=== PATIENT | female | born 1940 | race Caucasian/White ===

== ENCOUNTER 2020-07-16 03:09 | Inpatient (IN) | payer MEDICARE, OTHER, SELFPAY ==
[2020-07-16] VITALS (59 sets, daily range): BP systolic 101–205; BP diastolic 03–158; PULSE 84–137; RESP 1–32; TEMP 36.6–36.7; O2SAT 89–97
--- NOTE | 2020-07-16 03:30 | USCV_ITS ---
Arnulfo Aaliyah Age: 80 Gender: F : 1940 Exam Date: 07/16/2020 06:52 Ordering Phys: Alessia Negrete MD Technologist: Mindi Stokes Exam Location: [facility] Indication: NSTEMI BP: 144 / 94 HR: 99 Rhythm: Sinus Technical Quality: Adequate MEASUREMENTS (Male / Female) Normal Values 2D ECHO LV Diastolic Diameter PLAX 4.2 cm 4.2 - 5.9 / 3.9 - 5.3 cm LV Systolic Diameter PLAX 2.6 cm LV Chamber Size 3.8 cm IVS Diastolic Thickness 1.1 cm 0.6 - 1.0 / 0.6 - 0.9 cm IVS Systolic Thickness 1.6 cm LVPW Diastolic Thickness 1.4 cm 0.6 - 1.0 / 0.6 - 0.9 cm LVPW Systolic Thickness 1.4 cm RV Chamber Size 2.8 cm LVOT Diameter 2.1 cm LV Ejection Fraction 2D Teich 68.5 % LV Ejection Fraction MOD 2C 41.8 % LV Ejection Fraction 2C AL 41.6 % LA Diameter 2.8 cm LA Width 2.7 cm LA Height 3.9 cm RA Width 2.9 cm RA Height 3.7 cm Aorta at Sinotubular Diameter 3.1 cm M-MODE LV Diastolic Diameter MM 3.9 cm 4.2 - 5.9 / 3.9 - 5.3 cm LV Systolic Diameter MM 2.4 cm LV Ejection Fraction MM Teich 67.8 % IVS Diastolic Thickness MM 1.0 cm 0.6 - 1.0 / 0.6 - 0.9 cm IVS Systolic Thickness MM 1.7 cm LVPW Diastolic Thickness MM 1.1 cm 0.6 - 1.0 / 0.6 - 0.9 cm LVPW Systolic Thickness MM 1.5 cm RV Diastolic Diameter MM 1.4 cm Aortic Annulus Diameter 3.5 cm LA Ao Ratio MM 0.8 MV E Point Septal Separation 1.2 cm DOPPLER AV Peak Velocity 127.0 cm/s LVOT Peak Velocity 117.0 cm/s AV Area Cont Eq vti 3.1 cm squared AV Area Cont Eq pk 3.1 cm squared MV Area PHT 5.8 cm squared Mitral E to A Ratio 3.2 MV E' Velocity 71.0 cm/s Mitral E to MV E' Ratio 17.8 Mitral E to LV E' Lateral Ratio 14.7 Mitral E to LV E' Septal Ratio 23.0 TR Peak Velocity 135.0 cm/s TR Peak Gradient 7.3 mmHg TR Mean Velocity 68.2 cm/s TR Mean Gradient 2.5 mmHg TR Velocity Time Integral 26.0 cm TV Peak E Velocity 86.0 cm/s Right Atrial Pressure 3.0 mmHg Pulmonary Artery Systolic Pressu 10.3 mmHg PV Peak Velocity 125.0 cm/s RV Acceleration Time 0.2 s RV Ejection Time 0.3 s RV AcT/ET 0.6 FINDINGS Left Ventricle Severe hypokinesia of the mid and apical septum, anteroseptum and the LV apex. LV ejection fraction around 45%. Right Ventricle Also be of normal size ejection fraction Right Atrium Possibly of normal size Left Atrium Of normal size. Mitral Valve Mild mitral annular calcification. Aortic Valve Thickened aortic valve. Tricuspid Valve No gross abnormalities noted Pulmonic Valve Mild pulmonary valve regurgitation. Pericardium No pericardial effusion. Aorta Normal aortic annulus size. CONCLUSIONS Severe hypokinesia of the mid and apical septum, anteroseptum and the LV apex. LV ejection fraction around 45%. Mild mitral annular calcification. Mild pulmonary valve regurgitation. There is no pericardial effusion. There are no intracardiac masses. No previous study is available for comparison. Dr Jeanie Wall MD [facility] (Electronically Signed) Final Date: 16 July 2020 08:22 S
--- NOTE | 2020-07-16 03:33 | PC.NURSE ---
Patient received from [place], [place] via stretcher. Patient transferred from stretcher to bed x3 assist. Patient needing bedpan . Patient had spell of incontinence while in route. Patient cleaned. BP is high on monitor. Dr Negrete in the room. Obtained manual blood pressure of 192/120. Waiting for Dr to place orders at this time. Patient denies any discomfort presently. 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 Patient report CVA was about 30 years ago.
--- NOTE | 2020-07-16 03:36 | P.HP_ITS ---
Providers/Chief Complaint Admitting Physician: Alessia Negrete MD Chief Complaint: no stemi History of Present Illness Aaliyah Arredondo is a 80 year old female who has history of left-sided hemiparesis, expressive aphasia, presented to [facility] for chief complaint of chest pain. Patient is stating that her symptoms started about 3 days ago which got worse last night when she was trying to go to bed. She was very restless last night and was experiencing severe chest pain which was excruciating, radiating towards her left arm, she is endorsing that symptoms got worse 2 hours before her arrival to the ER however she has been feeling discomfort for last 6 to 7 hours. She did not experience any nausea or vomiting or shortness of breath but this chest pain is radiating towards her left arm. Previously no history of CA, coronary artery disease. Diagnosis at the outside facility reviewed, EKG showing T wave inversion, biphasic T waves in lateral leads, first troponin 88, second [id number], Covid antigen negative, creatinine 1.3, hypokalemia Chest x-ray revealed mild congestion, heparin was started, loading dose of aspirin was given at the time my evaluation patient has Nitropaste, hypertensive urgency, no active chest pain. Review of Systems Const: Denies: fever(s), chills or body aches Eyes: Denies: change in vision ENMT: Denies: throat pain Card: Reports: chest pain, swelling of feet/ankles and dyspnea on exertion Resp: Reports: dyspnea GI: Denies: abdominal pain : Denies: flank pain Musc: Denies: neck pain Skin/Breast: Denies: rash Neuro: Denies: Slurred speech present Psych: Denies: anxiety Endo: Denies: polyuria Sd/Lymph: Denies: easy bruising All/Imm: Denies: urticaria PFSH Acute PFSH: Medical History Arthritis Chronic kidney disease CVA (cerebral vascular accident) Hypertension Left-sided weakness Peripheral vascular disease UTI (urinary tract infection) Surgical History H/O vaginal hysterectomy S/P cholecystectomy Family History Other Family history non-contributory Social History Smoking and tobacco status: never smoked Alcohol intake: never Substance/Drug Use: never Housing: House Physical Exam Narrative: EXAM NARRATIVE: Very pleasant elderly female Currently chest pain-free Saturating well on 2 L nasal cannula Does not appear to be in any distress Dry buccal mucous membrane S1, S2 no murmur appreciated, lower extremity 1+ pitting edema bilaterally No abdominal pain, abdomen is soft nontender No acute respiratory distress bilateral breath sounds without adventitious ronchi or crackles Right-sided facial droop, right-sided hemiparesis, spastic paresis of hand, old changes Expressive aphasia Mild cognitive impairment Appropriate pleasant mood and affect according to her previous CVA and age Skin without signs of ulcer or gangrene A&P Assessment and plan (1) NSTEMI (non-ST elevated myocardial infarction): Status: Acute Additional A&P Information NSTEMI No active chest pain, she is hypertensive diastolic 110, has Nitropaste which I would remove and start nitro drip, continue heparin drip, loaded with Plavix, start ACS protocol Echo in the morning most likely she will need an angiogram considering significant delta troponin, Dr. Wall has been notified and consulted EKG showing lateral T wave biphasic pattern, would request D-dimer Hypokalemia: Repleted Hypertensive urgency: We will start nitro drip Chronic kidney disease Do not have previous creatinine level to complete her kidney function, current creatinine 1.37 We will start low-dose lisinopril for ACS Monitor urine output Repeat BMP Previous CVA history with left-sided hemiparesis no acute exacerbation she has expressive aphasia right-sided facial droop right-sided spastic hemiparesis N.p.o. Full code DVT prophylaxis not indicated Attestations Medical Necessity Statement*: Anticipating stay in the hospital cross more than 2 midnights for NSTEMI ACS protocol Time Spent in Patient Care: (>than 50% of time spent in counselling and/or direct pt care on unit) . 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
--- NOTE | 2020-07-16 03:55 | ECG_ITS ---
[facility] Test Date: 2020-07-16 Pat Name: Aaliyah Arredondo Department: Room: 111 Gender: Female Adjudication Specialist: : 1940 Requested By: Alessia Negrete Order Number: [id number] Oliva MD: Jeanie Wall M.D. Measurements Intervals [place] Rate: 92 P: 53 [place]: 152 QRS: -40 QRSD: 77 T: 99 QT: 335 QTc: 416 Interpretive Statements SINUS RHYTHM POSSIBLE LEFT ATRIAL ENLARGEMENT [-0.1mV P WAVE IN V1/V2] INFERIOR MYOCARDIAL INFARCTION [40+ ms Q WAVE AND/OR ST/T ABNORMALITY IN II/aVF], PROBABLY OLD ANTEROLATERAL MYOCARDIAL INFARCTION [40+ ms Q WAVE IN I/aVL/V3-V6], PROBABLY RECENT ACUTE WV INTERPRETATION BASED ON A DEFAULT AGE OF 40 YEARS No previous ECG available for comparison Electronically Signed On 07-16-2020 22:26:49 PRECIPITATOR OPERATOR by Jeanie Wall M.D. [id number]
[2020-07-16] MEDS: nitroglycerin drip 50 MG/250 ML PREMIX 9 MG IV (04:03)
[2020-07-16] MEDS: clopidogrel 300 mg Tablet PO (04:03)
[2020-07-16] MEDS: potassium chloride ER 20 mEq Tablet 40 MEQ PO (04:29)
[2020-07-16] MEDS: heparin drip 25,000 UNIT/500 ML PREMIX 22 UNIT IV (04:32)
[2020-07-16] MEDS: hyDRALAzine 20 mg/mL INJ 1 mL 10 MG IVP (05:44)
--- NOTE | 2020-07-16 05:55 | ECG_ITS ---
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 Measurements Intervals [place] Rate: 101 P: 53 [place]: 139 QRS: -34 QRSD: 77 T: 96 QT: 333 QTc: 433 Interpretive Statements SINUS TACHYCARDIA POSSIBLE LEFT ATRIAL ENLARGEMENT [-0.1mV P WAVE IN V1/V2] INFERIOR MYOCARDIAL INFARCTION [40+ ms Q WAVE AND/OR ST/T ABNORMALITY IN II/aVF], OF INDETERMINATE AGE ANTEROLATERAL MYOCARDIAL INFARCTION [40+ ms Q WAVE IN I/aVL/V3-V6], PROBABLY RECENT ACUTE [place] INTERPRETATION BASED ON A DEFAULT AGE OF 40 YEARS Compared to ECG 07/16/2020 04:46:40 Sinus rhythm no longer present Myocardial infarct finding still present Electronically Signed On 07-16-2020 22:52:56 SCALE SHOOTER by Jeanie Wall M.D. [id number]
--- NOTE | 2020-07-16 06:15 | PC.NURSE ---
Patient requesting to be left on bedpan. Has elevated blood pressure. Informed Dr Negrete and received verbal order to place cox catheter and he placed order for one time dose of Hydralazine 10mg IVP which was given. IV to left wrist was leaking. Patient not receiving adequate dose of Nitroglycerin. Removed and replaced if to left out forearm. Current BP is now 127/91. Decreased Nitro drip to 10mcg/min. Informed Dr Negrete of changes.
[2020-07-16 06:36] LABS: D Dimer 3.99 ug/mIFEU (0-0.59)
[2020-07-16 06:44] LABS: Glucose Point of Care 278 mg/dL (70-110)
[2020-07-16 06:46] LABS: Troponin(5th) Baseline 2748 ng/L (0-10)
[2020-07-16 06:52] LABS: NT Pro B Type Natriuretic Pept 5090 pg/mL (0-450)
[2020-07-16 06:55] LABS: Basophils % 0.3 %; Hemoglobin 16.5 g/dL (11.5-15.3); Lymphocytes # 0.5 10^3/uL (0.8-4.8); Lymphocytes % 7.7 %; Mean Corpuscular HGB Conc 32.4 g/dL (30.0-36.0); Mean Corpuscular Hemoglobin 31.1 pg (28.0-34.0); Mean Corpuscular Volume 96.2 fL (81-99); Mean Platelet Volume 11.7 fL (7.4-10.4); Monocytes # 0.5 10^3/uL (0.2-0.9); Monocytes % 7.4 %; Neutrophils # 5.89 10^3/uL (1.8-7.7); Neutrophils % 83.7 %; Nucleated Red Blood Cells % 0 %; Platelet Count 144 10^3/cmm (130-400); Red Cell Distribution Width 13.9 % (12.1-15.1)
--- NOTE | 2020-07-16 07:13 | ECG_ITS ---
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 Measurements Intervals [place] Rate: 99 P: 54 [place]: 145 QRS: -38 QRSD: 73 T: 105 QT: 335 QTc: 430 Interpretive Statements SINUS RHYTHM INFERIOR MYOCARDIAL INFARCTION [40+ ms Q WAVE AND/OR ST/T ABNORMALITY IN II/aVF], OF INDETERMINATE AGE ANTEROLATERAL MYOCARDIAL INFARCTION [40+ ms Q WAVE IN I/aVL/V3-V6], PROBABLY RECENT ACUTE CT Compared to ECG 07/16/2020 06:35:22 Sinus tachycardia no longer present Myocardial infarct finding still present Electronically Signed On 07-16-2020 22:41:11 SUPERVISOR ROLLER PRINTING by Jeanie Wall M.D. [id number]
[2020-07-16 07:16] LABS: Anion Gap 20.2 (5-19); Blood Urea Nitrogen 24 mg/dL (8-23); Calcium 9.5 mg/dL (8.5-10.5); Carbon Dioxide 17 mmol/L (22-29); Chloride 96 mmol/L (98-107); Glucose 239 mg/dL (65-115); Osmolality Calculated 280 mOsm/kg (285-295); Potassium 4.2 mmol/L (3.5-5.1); Sodium 129 mmol/L (136-145)
--- NOTE | 2020-07-16 07:54 | P.CONIM_ITS ---
Providers/Reason For Consult Consulting Physican/Specialty*: JAVIER Wall MD/cardiology Reason for Consult*: Patient with chest pain and elevated troponin T Attending Physician: Angelo Gaona MD History of Present Illness History of Present Illness Aaliyah Arredondo is a 80 year old female, is transferred from [facility] in [place] where she presented with complaints of worsening of chest pain over the last 3 days. She had a troponin T of 700. Ms. Arredondo is a poor historian. She had a CVA almost 30 years ago with residual right-sided hemiplegia. She has a history of hypertension, dyslipidemia and possible diabetes. She apparently has been in her baseline state of health up until 3 days ago when she started having pain in the right side of the chest, radiating across the chest, to both shoulders, to the back and also to the left arm. According to the patient, it was intermittent and mild to moderate in intensity. Last evening, the pain got worse. It was almost 10 out of 10. For these complaints, she was taken to the [facility] emergency room. Where she was found to have an abnormal EKG and troponin T. She is transferred to our hospital for further evaluation management. Patient was almost pain-free at the time of admission to our unit. This morning the pain again started coming back. Currently the pain is 5/10 intensity. Her EKG showed complete infarct in the inferior and anterolateral leads with some minimal ST elevation in 1 and aVL. She has T inversions in the anterolateral leads. She had some amount of shortness of breath. Denies any fever, chills or cough. No abdominal pain or dysuria. She has no previous history for any coronary artery disease or myocardial infarction. The exact reason for the CVA is not known. Review of Systems Narrative: CONSTITUTIONAL: No fever or chills. EYES: No blurring of vision or other visual disturbances lately. ENT: No hoarseness of voice, auditory disturbances or sore throat. CARDIOVASCULAR: As mentioned above. RESPIRATORY: Has some amount of shortness of breath. GASTROINTESTINAL: No hematemesis or melena. GENITOURINARY: No dysuria or hematuria. INTEGUMENTARY: No skin rashes or history of skin cancer. NEURO: CVA with residual right-sided weakness. She has almost cleared pseudopod in the right upper extremity and grade 1 in the right lower extremity. PSYCHIATRIC: No history of psychosis or major depression. HEMATOLOGIC: No bleeding disorders or significant anemia. ENDOCRINE: Questionable history of diabetes MUSCULOSKELETAL: Occasionally she moves around with a cane ALLERGY/IMMUNOLOGY: As mentioned above. Meds/Allergies Home Medications and Allergies Home Medications Medication Instructions Recorded Confirmed Last Taken Type acetaminophen 500 mg PO Q6H PRN 07/16/20 07/16/20 Unknown History ascorbic acid (vitamin C) 500 mg PO DAILY 07/16/20 07/16/20 07/15/20 08:00 History carvedilol 3.125 mg PO BIDWM 07/16/20 07/16/20 07/15/20 17:00 History cholecalciferol (vitamin D3) See Rx Instructions .ROUTE .COMPLEX 07/16/20 07/16/20 07/12/20 08:00 History cyanocobalamin (vitamin B-12) 100 mcg PO DAILY 07/16/20 07/16/20 07/15/20 08:00 History fluticasone propionate 2 spray INTRANASAL DAILY 07/16/20 07/16/20 07/15/20 08:00 History garlic 1 mg PO DAILY 07/16/20 07/16/20 07/15/20 08:00 History lisinopril 20 mg PO BID 07/16/20 07/16/20 07/15/20 20:00 History Allergies Allergy/AdvReac Type Severity Reaction Status Date / Time Penicillins Allergy ALGY-Anaphy Verified 07/16/20 04:42 laxis Current Medications Current Medications Generic Name Dose Route Start Last Admin Trade Name Freq PRN Reason Stop Dose Admin Heparin Sodium/Sodium Chloride 25,000 unit in 500 mls @ 0 mls/hr 07/16/20 03:30 07/16/20 04:32 Heparin Drip IV 14.07 unit/kg/hr .Q0M KEVIN 22 mls/hr Administration Protocol Per Protocol Nitroglycerin/Dextrose 50 mg in 250 mls @ 0 mls/hr 07/16/20 03:45 07/16/20 07:37 Nitroglycerin Drip IV 30 mcg/min .Q0M KEVIN 9 mls/hr Titration Protocol Per Protocol PFSH Acute PFSH: Medical History (Updated 07/16/20 @ 08:37 by Jeanie Wall MD) Accelerated hypertension Arthritis Chronic kidney disease CVA (cerebral vascular accident) Hypertension Left-sided weakness Peripheral vascular disease UTI (urinary tract infection) Surgical History H/O vaginal hysterectomy S/P cholecystectomy Family History Other Family history non-contributory Social History Smoking and tobacco status: never smoked Alcohol intake: never Substance/Drug Use: never Housing: House Vitals/I&O/Wt Last Vital Signs Temp 97.8 F 07/16/20 07:37 Pulse 98 07/16/20 07:37 Resp 19 H 07/16/20 07:37 BP 139/03 07/16/20 07:37 Pulse Ox 95 07/16/20 07:37 07/15/20 07/16/20 07/16/20 22:59 06:59 14:59 Intake Total 353.825 / 353.825 4.925 / 4.925 Balance 353.825 / 353.825 4.925 / 4.925 Weight last 48 hrs Weight 172 lb 4.8 oz Physical Exam Narrative: EXAM NARRATIVE: GENERAL: The patient is alert and oriented times three. She is hard of hearing. Does not appear to be in any distress. HEENT: Minimal pallor with no icterus or lymphadenopathy. The pupils are symmetrical. Oral cavity: There are no mucous membrane lesions. Funduscopic examination: Fundus is not visualized NECK: Trachea appears to be central. No masses noted. No JVD or thyromegaly appreciated. No carotid bruit. RESPIRATORY: Chest is symmetrical. No intercostals muscle retraction or any accessory muscle activation. There is no chest wall tenderness. Breath sounds are heard bilaterally. No rales or rhonchi heard. No evidence of any consolidation. BREASTS: Deferred. HEART: The PMI could not be palpated. First and second heart sounds are normal. No S3 but there is an S4. Short systolic murmur in the left sternal border. No diastolic murmurs. No pericardial rub. ABDOMEN: No vessel pulsations or distention. No tenderness. No organomegaly appreciated. No abdominal bruit. Bowel sounds are normally heard. : Deferred. RECTAL: Deferred. LYMPHATIC: No lymphadenopathy noted in the neck or groin. EXTREMITIES: No edema or cyanosis. No clubbing. The peripheral pulses are palpable fairly good volume and amplitude. MUSCULOSKELETAL: Patient has features of flexion contracture of the right upper extremity. SKIN: There are no significant scars or skin rash noted. NEUROPSYCHIATRIC: Has some expressive aphasia. Right hemiplegia. Urinary Catheter Management^: Arguelles: Cath Placed During This Visit: yes Urinary Catheter Date of Insertion: 07/16/20 Urinary Catheter Time of Insertion: 06:24 Data Labs: Other Labs: Laboratory Last Values WBC 7.0 10^3/uL (4.0- 10.0) 07/16/20 05:45 RBC 5.30 10^6/uL (4.1 -5.3) 07/16/20 05:45 Hgb 16.5 g/dL (11.5-1 5.3) H 07/16/20 05:45 Hct 51.0 % (37.0-47.0 ) H 07/16/20 05:45 MCV 96.2 fL (81-99) 07/16/20 05:45 MCH 31.1 pg (28.0-34. 0) 07/16/20 05:45 MCHC 32.4 g/dL (30.0-3 6.0) 07/16/20 05:45 RDW 13.9 % (12.1-15.1 ) 07/16/20 05:45 Plt Count 144 10^3/cmm (130 -400) 07/16/20 05:45 Plt Count Cancelled 07/16/20 05:45 MPV 11.7 fL (7.4-10.4 ) H 07/16/20 05:45 Neut % (Auto) 83.7 % 07/16/20 05:45 Lymph % (Auto) 7.7 % 07/16/20 05:45 [place] % (Auto) 7.4 % 07/16/20 05:45 Eos % (Auto) 0.0 % 07/16/20 05:45 Baso % (Auto) 0.3 % 07/16/20 05:45 Neut # (Auto) 5.89 10^3/uL (1.8 -7.7) 07/16/20 05:45 Lymph # (Auto) 0.5 10^3/uL (0.8- 4.8) L 07/16/20 05:45 [place] # (Auto) 0.5 10^3/uL (0.2- 0.9) 07/16/20 05:45 Eos # (Auto) 0.0 10^3/uL (0.0- 0.8) 07/16/20 05:45 Baso # (Auto) 0.0 10^3/uL (0.0- 0.1) 07/16/20 05:45 Nucleated RBC % (a uto) 0 % 07/16/20 05:45 Nucleated RBCs # 0.0 /100WBC 07/16/20 05:45 D-Dimer 3.99 ug/mIFEU (0- 0.59) H 07/16/20 05:45 Sodium 129 mmol/L (136-1 45) L 07/16/20 05:45 Potassium 4.2 mmol/L (3.5-5 .1) 07/16/20 05:45 Chloride 96 mmol/L (98-107 ) L 07/16/20 05:45 Carbon Dioxide 17 mmol/L (22-29) L 07/16/20 05:45 Anion Gap 20.2 (5-19) H 07/16/20 05:45 BUN 24 mg/dL (8-23) H 07/16/20 05:45 Creatinine 1.2 mg/dL (0.5-0. 9) H 07/16/20 05:45 GFR Calculation Not Reportable 07/16/20 05:45 Glucose 239 mg/dL (65-115 ) H 07/16/20 05:45 POC Glucose 278 mg/dL (70-110 ) 07/16/20 06:30 Calculated Osmolal ity 280 mOsm/kg (285- 295) L 07/16/20 05:45 Calcium 9.5 mg/dL (8.5-10 .5) 07/16/20 05:45 Troponin T Baselin e 2748 ng/L (0-10) H* 07/16/20 05:45 NT-Pro-B Natriuret Pep 5090 pg/mL (0-450 ) H 07/16/20 05:45 Imaging^: Echo: My impression: Echocardiogram from this morning revealed Severe hypokinesia of the mid and apical septum, anteroseptum and the LV apex. LV ejection fraction around 45%. Mild mitral annular calcification. Mild pulmonary valve regurgitation. There is no pericardial effusion. There are no intracardiac masses. No previous study is available for comparison. EKG^: EKG 1: My Interpretation: EKG reveals sinus rhythm with poor R wave progression. Fe atures of anterolateral wall myocardial infarction. QS pattern in lead V3 to V6. Minimal ST elevation in 1 and aVL with T inversion. Features of inferior wall RI of undetermined age A&P Assessment and plan (1) NSTEMI (non-ST elevated myocardial infarction): Patient's the clinical features are consistent with non-ST elevation myocardial infarction. She has EKG evidence of completed anterolateral and inferior myocardial infarction. Currently she has unstable anginal symptoms. She was started on Lovenox, beta-kole, aspirin. She is on IV nitro. The nitroglycerin dose may be titrated for chest pain. Also will be started on Lipitor and Plavix. She will be closely monitored on telemetry. Status: Acute (2) Accelerated hypertension: Her systolic blood pressure was in the 200 range at the time of admission. Currently the pressure is coming down. Status: Acute (3) Dyslipidemia: Patient will be started on Lipitor 80 mg now and daily Status: Acute (4) History of cerebrovascular accident (CVA) greater than eight weeks in the past: We may do a carotid duplex admission to further evaluate for any significant carotid artery disease. Details of her stroke is not available at this time. Status: Acute (5) Chronic kidney disease: Patient be carefully hydrated. Status: Inactive Qualifiers: Chronic kidney disease stage: stage 3 (moderate) Chronic kidney disease stage 3 subtype: stage 3a (GFR 45-59) Qualified Code(s): N18.31 - Chronic kidney disease, stage 3a (6) Ischemic cardiomyopathy: This could be related to the recent RI. We will be watching for any development of heart failure. Status: Acute Additional A&P Information Because of the patient's ongoing chest pains, she requires an urgent cardiac catheterization to further evaluate the coronary status and decide on further management. This was discussed with the patient and her [id number] in detail. Her is not available at this time for discussions. The patient is agreeable to go ahead with the procedure. Because of her kidney dysfunction, she carries a high risk for contrast-induced nephropathy. This was explained to the patient detail which is understood well. The risk of bleeding, hematoma, vascular injury, myocardial infarction, CVA, renal failure and other concomitant complications were explained in detail. The patient is wanting to go ahead with the procedure. I discussed patient's case with my colleague Dr. Amezcua, who agreed to take her to the [facility] to perform this procedure and possible PCI. Patient will be kept n.p.o. 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
--- NOTE | 2020-07-16 08:13 | PC.NURSE ---
PER DR HOOD, HOLD LASIX THIS MORNING AND GIVE ATORVASTATIN NOW.
[2020-07-16] MEDS: aspirin 81 mg EC Tablet PO (08:22)
[2020-07-16] MEDS: metoprolol succinate ER (24 HR) 25 mg Tablet 12.5 MG PO (08:22)
[2020-07-16] MEDS: atorvastatin 40 mg Tablet 80 MG PO ×2 (08:22→20:34)
[2020-07-16] MEDS: lisinopril 10 mg Tablet PO (08:23)
--- NOTE | 2020-07-16 08:37 | P.HPUD_ITS ---
Surgery/Procedure H&P Update DATE OF PROCEDURE: July 16, 2020 DATE H&P PERFORMED: 07/16/20 H&P UPDATE INFORMATION: I have reviewed H&P completed within last 30 days and I have examined patient prior to procedure PREOP DIAGNOSIS: Non-ST elevation CO unstable PATIENT REASSESSED PRIOR TO SEDATION, WITH NO CHANGE NOTED: Yes PHYSICAL EXAM: alert, oriented x 3, clear to auscultation bilaterally and regula r rate & rhythm AIRWAY EVAL/ANESTHESIA PLAN: normal airway, ASA II, Risks, benefits & alternatives of sedation and/or procedure discussed and Patient agrees to continue as planned ADDITIONAL INFORMATION: Patient and the family over the phone has been explained all risk benefit and alternative for the procedure. It is an urgent procedure due to unstable non-ST elevation CO. Patient continues to have chest pain with dynamic EKG changes we would therefore proceed with left heart cath and PCI if indicated. Patient has been explained the risk of major bleed, arrhythmia, perforation, dissection, acute occlusion, renal infarction, emergent bypass, stroke and worse case scenario . She would like to proceed with the
--- NOTE | 2020-07-16 08:38 | PC.NURSE ---
ALSO ORDERED TO PROCEED WITH ADMINISTRATION OF OTHER MORNING MEDICATIONS ASPIRIN, LISINOPRIL AND METOPROLOL PER DR. HOOD.
--- NOTE | 2020-07-16 08:38 | PC.NURSE ---
PATIENT TAKEN TO [facility] AT THIS TIME.
--- NOTE | 2020-07-16 08:39 | XACV_ITS ---
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 Conclusions 1. Indication for left heart cath: Non-ST elevation MI1-Normal left main2-Chronically occluded mid LAD 100% no MARCELO flow was noted beyond this it appeared to be an atretic diffusely disease calcified vessel3-Left circumflex is dominant and without significant stenosis4-RCA is nondominant without significant stenosis. Recommendations * 1-Return to inpatient for close monitoring and routine cath care 2-Risk factor modification for secondary prevention 3-Statin and aspirin 81 mg life--long, if tolerated 4-Patient was pre-loaded with 300 mg of Plavix, continue Plavix 75mg p.o. daily for at least one year. We will assess at the end of one year again to continue if further or not 5-Continue optimal medical management 6-Follow up with Dr. Wall in four weeks and your primary care in 10 days. Diagnostic RX Recommendation: medical therapy and/or counseling Pressures Phase:Rest AO : 187 / 116 ( 99 ) @ 2:55:00 AM Clinical Evaluation EBL: 5mL-10mL Procedural Details Procedure Consent Obtained. Current Diagnosis : STEMI. Pre-Procedure Time Out. Identified patient by full name and date of as verbalized by the patient/guarantor. Does the consent match the physician's order: Yes. Accurate & Complete Informed Consent: Yes. Inpatient/Outpatient History & Physical on Chart: N/A Emergent; Informed Consent not obtained due to time critical life threat. If H&P is completed, is and addenduem needed: N/A Emergent; Informed Consent not obtained due to time critical life threat; If yes, is the addendum complete: N/A Emergent; Informed Consent not obtained due to time critical life threat. Visualize and Verify Site with Patient/Guarantor: N/A. Relevant Radiology Images available: Yes. Dr. Amezcua spoke with Daughter Karen. Pre-op teaching completed and patient verbalized understanding. The risks, benefits, and alternatives of sedation and/or procedure were discussed by physician. The patient agrees to continue. Procedure started. Correct patient, site and procedure confirmed by cath team. Current diagnosis: STEMI. PERRLA. Strong, equal hand compensation and hris analyst bilaterally. Lungs clear x 5 lobes. Pre Procedural Pulses: bilateral dorsalis pedis was 2+. Pre Procedural Pulses: bilateral posterior tibial was 2+. Pre Procedural Pulses: bilateral radial was 2+. Nitro drip running at 40mcg/min. Oxygen started at 2liters/min via nasal canula. bilateral groins was prepped with chloroprep then draped in the usual sterile fashion. Baseline sample Acquired. HR: 115 BPM. Equipment: 6F - Femoral. Cardiac Cath Pack. ACIST Manifold Kit Model BT 2000. Heparinized Saline (2 units/mL), 1000 mL bag. Kit, Micropuncture. Physician arrived. Physician scrubbed in. Immediate Pre-Procedure Time Out. Correct Patient: Yes; Correct Procedure: Yes; Correct Site: Yes; Correct Patient Position: Yes; Correct Supplies: Yes; Dried Flammable Prep: Yes; Blood Products Available: No;. Lidocaine 1% infiltrated to the right groin. AP pads placed on patient. Arterial access obtained. 6 cameroonian XB 3 guide catheter was inserted over the wire. Multiple views taken of left coronary artery. ACT drawn. Results 161 seconds. Therapeutic limits - pre-heparin administration 90-150 seconds and monitoring heparin during a vascular procedure >250 seconds. Nitro decreased to 20mcg/min. [place] guidewire was advanced through the guide catheter to lesion in the prox LAD. Dr. Amezcua reviewed films. [place] wire and Guide catheter out. Sheath(s) sutured into position with 2-0 silk and sterile 4x4's and Op-site applied over the site. No oozing or signs and symptoms of hematoma noted. Arterial sheath flushed and connected to tranducer and pressure bag with heparinized saline. Post Procedure: Pulses reassessed and unchanged. PERRLA. Strong, equal hand compensation and hris analyst bilaterally. Total IV fluids: 50 mL. No VTE prophylaxis required. Medication's Wasted: Lidocaine 1% = 2 mL. Medication's Wasted: Heparin = 4000 units. Medication's Wasted: Other = Fentanyl 50 mcg. Contrast type used: Visipaque 320 mgI/mL, 500 mL bottle. Post-op diagnosis: Chronically occluded LAD. Complications: None. Estimated blood loss: 5mL-10mL. Vital chart was stopped. Procedure completed. Patient transferred by bed to 1st floor. Access Site Site: Right Femoral artery Sheath Size: 6 Fr Hemostasis Success: Unsuccessful Procedure Medications Start: 8:43 AM Stop: 8:43 AM Medication: Versed Amount: 1 mg Route: I.V. Start: 8:43 AM Stop: 8:43 AM Medication: Fentanyl Amount: 50 mcg Route: I.V. Start: 9:00 AM Stop: 9:00 AM Medication: Versed Amount: 1 mg Route: I.V. I, the attending physician, have reviewed and verified all procedure medications. Yes, all medications given per verbal order History/Risk Factors Hypertension: No Dyslipidemia: No Peripheral Arterial Disease (PAD): No Myocardial Infarction (DE): No Obesity: No Renal Disease: No Prior Interventions PCI: No CABG: No Valve Surgery: No Report Signatures Finalized by Alessia Amezcua MD on 07/20/2020 07:02 PM
--- NOTE | 2020-07-16 09:42 | PC.NURSE ---
PATIENT RECEIVED FROM [facility]. NO NEW COMPLAINTS AT THIS TIME.
--- NOTE | 2020-07-16 11:29 | P.PN_ITS ---
Subjective Subjective: Interval history: Patient was examined this morning, she has right upper and right lower extremity weakness secondary to stroke, she tells me that she lives at home with her , who helps take care of her, still has some substernal chest pain, is going down for cardiac catheterization Vitals/I&O/Wt Last Vital Signs Temp 97.8 F 07/16/20 11:28 Pulse 91 07/16/20 11:28 Resp 18 07/16/20 11:28 BP 152/110 07/16/20 11:28 Pulse Ox 94 07/16/20 11:28 07/15/20 07/16/20 07/16/20 22:59 06:59 14:59 Intake Total 353.825 / 353.825 114.192 / 114.192 Balance 353.825 / 353.825 114.192 / 114.192 Weight last 48 hrs Weight 78.154 kg Physical Exam Const: COMMON NORMALS: no acute distress and patient oriented x3 HENMT: COMMON NORMALS: normocephalic HEAD & SCALP: normocephalic Neck/C-Spine: COMMON NORMALS: no JVD Resp: COMMON NORMALS: normal respiratory effort, No retractions, No use of accessory muscles and clear to auscultation bilaterally AUSCULTATION: clear to auscultation bilaterally Cardio: COMMON NORMALS: no JVD, regular rate, regular rhythm, S1 normal heart sound present and S2 normal heart sound present RATE: regular rate RHYTHM: regular rhythm HEART SOUNDS: S1 normal heart sound present and S2 normal heart sound present GI: COMMON NORMALS: Normal to inspection, nondistended, normoactive bowel sounds present, Soft to palpation, non-tender, No hepatosplenomegaly present, no masses and no bruits PALPATION: Yes Soft to palpation and Yes No hepatosplenomegaly present Extremity: COMMON NORMALS: capillary refill normal, no clubbing, cyanosis or edema, no calf tenderness and no pedal edema Neuro: COMMON NORMALS: patient oriented x3 OTHER: Right upper extremity strength 1 out of 5 compared to 5 out of 5 in the left Right lower extremity strength 1 out of 5 compared to 5 out of 5 on the left Slight right facial droop No slurring of her speech This is in chronic nature Psych: COMMON NORMALS: mental status grossly normal Urinary Catheter Management^: Arguelles: Cath Placed During This Visit: yes Urinary Catheter Date of Insertion: 07/16/20 Urinary Catheter Time of Insertion: 06:24 Data : 07/16/20 05:45 07/16/20 05:45 A&P Assessment and plan (1) NSTEMI (non-ST elevated myocardial infarction): Status: Acute Additional A&P Information NSTEMI No active chest pain, she is hypertensive diastolic 110, has Nitropaste which I would remove and start nitro drip, continue heparin drip, loaded with Plavix, start ACS protocol Echo in the morning most likely she will need an angiogram considering sign ificant delta troponin, Dr. Wall has been notified and consulted EKG showing lateral T wave biphasic pattern, would request D-dimer Will undergo cardiac catheterization this morning Hypokalemia: Repleted Hypertensive urgency: Weaning nitro drip Chronic kidney disease Do not have previous creatinine level to complete her kidney function, current creatinine 1.2 We will start low-dose lisinopril for ACS Monitor urine output Repeat BMP Previous CVA history with right sided hemiparesis no acute exacerbation she has expressive aphasia, right-sided facial droop right-sided spastic hemiparesis -Needs PT OT, she tells me that she ambulates?, Does not sound safe Hyponatremia, serum sodium 129, continue to monitor N.p.o. Full code DVT prophylaxis not indicated Attestations Medical Necessity Statement*: Patient requires hospitalization for NSTEMI, hyponatremia, MINDY Coding Level of Care Code Acute Shipping Hand for [facility] Shon Diagnoses NSTEMI (non-ST elevated myocardial infarction) I21.4
[2020-07-16 11:43] LABS: Partial Thromboplastin Time 136.1 SECONDS (23.9-36.7)
[2020-07-16 12:28] LABS: Glucose Point of Care 175 mg/dL (70-110)
--- NOTE | 2020-07-16 14:35 | PC.CHAP ---
Pastoral Care Encounter/Spiritual Assessment Type of Contact [] Declined asbestos surveyor visit [] Patient/Family/Request visit [] Outpatient visit [] Follow-up visit [] Physician referral [] Code/Alert [x] Routine visit [] Staff referral [] Actively dying [] Patient sleeping [] Family support [] [] Out of room [] Palliative care [] [x] Receiving care in room [] Pre-surgical visit [] Trauma [] Long length of stay [] ICU visit [] Other: Relational/Emotional Strength [x] Patient feels connected with others/family/visitors/staff [] Distress [] Loneliness/isolation [] Abandonment Spirituality of Patient [x] Person of Esme [] Attends Latter Day of their Esme [x] Believes in Prayer [] Reads Bible or Taoism materials [] There are Spiritual issues to be addressed Jumpbasting Armhole Baster Interventions [x] Prayer [x] Active listening [x] Non-anxious presence [x] Spiritual/emotional support [] Crisis/trauma care [x] Spiritual counseling [] Bereavement support [] Provided bereavement packet [] Provided Bible/devotional materials [] Provided toy/stuffed animal, coloring book to patient or family member [] Provided Communion [] Anointing/[place] [] Salvation [x] Completed spiritual assessment [] Other: Impact on Illness or Injury [] Angry [] Fearful [] Anxious [] Often cries [] Exhaustion [] Unable to work [] Unable to attend zoroastrianism [] Unable to walk/stand [] Unable to read [] Unable to drive [] Unable to eat/drink [] Unable to sleep [] Unable to be with family [] Patient intubated [] Other: Summary Had a procedure had a by-pass surergy feeling better and has agood attitude is going home tomorrow Time spent with patient 10 mins
[2020-07-16 15:01] LABS: Partial Thromboplastin Time 39.5 SECONDS (23.9-36.7)
[2020-07-16] MEDS: amlodipine 10 mg Tablet PO (15:22)
[2020-07-16] MEDS: cloNIDine 0.1 mg Tablet PO (15:22)
[2020-07-16 17:08] LABS: Glucose Point of Care 179 mg/dL (70-110)
--- NOTE | 2020-07-16 19:04 | PC.NURSE ---
Received report from Marianne River RN. Patient is s/p [facility] with right femoral access. Dressing in place to site remains c,d,i. Patient denies pain to site. Lying on right side. BP improved. No distress observed.
[2020-07-16 20:13] LABS: Glucose Point of Care 204 mg/dL (70-110)
[2020-07-16] MEDS: metoprolol tartrate 25 mg Tablet PO (20:34)
--- NOTE | 2020-07-16 20:55 | PC.NURSE ---
Patient current BP 116/71. Decreased Nitro drip to 3ml/hr.
--- NOTE | 2020-07-16 23:15 | PC.NURSE ---
BP decreased to 101/79. Stopped nitro drip at this time. No distress observed.
[2020-07-17] VITALS (24 sets, daily range): BP systolic 88–141; BP diastolic 55–84; PULSE 75–98; RESP 6–29; TEMP 36.6–37.3; O2SAT 85–95
--- NOTE | 2020-07-17 01:50 | PC.NURSE ---
Nitroglycerin drip remain stopped at this time. Blood pressures have been as documented.
[2020-07-17] MEDS: cloNIDine 0.1 mg Tablet PO (03:24)
[2020-07-17 06:32] LABS: Glucose Point of Care 131 mg/dL (70-110)
--- NOTE | 2020-07-17 07:17 | ECG_ITS ---
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 Measurements Intervals [place] Rate: 88 P: 46 WI: 127 QRS: -48 QRSD: 73 T: 129 QT: 391 QTc: 475 Interpretive Statements SINUS RHYTHM LOW QRS VOLTAGE IN PRECORDIAL LEADS [QRS DEFLECTION < 1.0 mV IN CHEST LEADS] ANTERIOR MYOCARDIAL INFARCTION [40+ ms Q WAVE AND/OR ST/T ABNORMALITY IN V3/V4], PROBABLY RECENT INFERIOR MYOCARDIAL INFARCTION [40+ ms Q WAVE AND/OR ST/T ABNORMALITY IN II/aVF], OF INDETERMINATE AGE ACUTE PA Compared to ECG 07/16/2020 07:20:02 Low QRS voltage now present Myocardial infarct finding still present Electronically Signed On 07-17-2020 18:39:24 CAR STOWER by Jeanie Wall M.D. [id number]
--- NOTE | 2020-07-17 07:30 | PC.NURSE ---
EKG changes noted EKG taken. pt stated denies any pain at this time. She does report off and on chest discomfort. Notified Dr. Gaona and Dr. Wall.
[2020-07-17] MEDS: FUROsemide 20 mg Tablet PO (08:02)
[2020-07-17] MEDS: metoprolol tartrate 25 mg Tablet PO ×2 (08:02→20:42)
[2020-07-17] MEDS: amlodipine 10 mg Tablet PO (08:02)
[2020-07-17] MEDS: aspirin 81 mg EC Tablet PO (08:02)
[2020-07-17] MEDS: lisinopril 10 mg Tablet PO (08:02)
--- NOTE | 2020-07-17 09:12 | PC.CHAP ---
Pastoral Care Encounter/Spiritual Assessment Type of Contact [] Declined hasher machine operator visit [] Patient/Family/Request visit [] Outpatient visit [] Follow-up visit [] Physician referral [] Code/Alert [x] Routine visit [] Staff referral [] Actively dying [] Patient sleeping [] Family support [] [] Out of room [] Palliative care [] [] Receiving care in room [] Pre-surgical visit [] Trauma [] Long length of stay [] ICU visit [] Other: Relational/Emotional Strength [] Patient feels connected with others/family/visitors/staff [] Distress [] Loneliness/isolation [] Abandonment Spirituality of Patient [] Person of Esme [] Attends Judaism of their Esme [] Believes in Prayer [] Reads Bible or Sikh materials [] There are Spiritual issues to be addressed Etcher Apprentice Photoengraving Interventions [x] Prayer [x] Active listening [x] Non-anxious presence [x] Spiritual/emotional support [] Crisis/trauma care [] Spiritual counseling [] Bereavement support [] Provided bereavement packet [] Provided Bible/devotional materials [] Provided toy/stuffed animal, coloring book to patient or family member [] Provided Communion [] Anointing/[place] [] Salvation [x] Completed spiritual assessment [] Other: Impact on Illness or Injury [] Angry [] Fearful [] Anxious [] Often cries [] Exhaustion [] Unable to work [] Unable to attend church [] Unable to walk/stand [] Unable to read [] Unable to drive [] Unable to eat/drink [] Unable to sleep [] Unable to be with family [] Patient intubated [] Other: Summary delightful lady. Resting well, doing as she states it well as possible Time spent with patient 10 min
--- NOTE | 2020-07-17 09:51 | PM.PN ---
Subjective Subjective: Interval history: Patient was taken to the cardiac catheterization lab yesterday for an urgent cardiac catheterization. She was found to have possible chronically occluded left artery descending artery. She had some moderate disease in the other vessels. Based on the angiogram findings it was opted to treat her medically. She continues to have chest pain. The intensity of the pain is 4/10. It seems to be intermittent. Denies any fever or chills. No cough. Medications: Reviewed: Yes Medication Review Details: Current Medications Acetaminophen (Acetaminophen 325 Mg Tablet) 650 mg PO Q6H PRN PRN Reason: MILD PAIN Al Hydrox/Mg Hydrox/Simethicone (Owch-Ajz-Bgusgpzwi-Ruby 30 Ml Udc) 30 ml PO Q15M PRN PRN Reason: INDIGESTION Albuterol/Ipratropium (Ipratropium-Albuterol 3 Ml Neb) 3 ml INHALATION Q6H PRN PRN Reason: SHORTNESS OF BREATH Alprazolam (Alprazolam 0.25 Mg Tablet) 0.25 mg PO TID PRN PRN Reason: ANXIETY Amlodipine Besylate (Amlodipine 10 Mg Tablet) 10 mg PO DAILY COUNT INCLUDES THE [facility] Last Admin: 07/17/20 08:02 Dose: 10 mg Documented by: Aspirin (Aspirin 81 Mg Ec Tablet) 81 mg PO DAILY COUNT INCLUDES THE [facility] Last Admin: 07/17/20 08:02 Dose: 81 mg Documented by: Atorvastatin Calcium (Atorvastatin 40 Mg Tablet) 80 mg PO BEDTIME COUNT INCLUDES THE [facility] Last Admin: 07/16/20 20:34 Dose: 80 mg Documented by: Clonidine HCl (Clonidine 0.1 Mg Tablet) 0.1 mg PO Q12H COUNT INCLUDES THE [facility] Last Admin: 07/17/20 03:24 Dose: 0.1 mg Documented by: Clopidogrel Bisulfate (Clopidogrel 75 Mg Tablet) 75 mg PO DAILY COUNT INCLUDES THE [facility] Enoxaparin Sodium (Enoxaparin 40 Mg/0.4 Ml Syringe) 40 mg SUBCUT Q24H COUNT INCLUDES THE [facility] Fentanyl (Fentanyl 50 Mcg/Ml Inj 2ml) 50 mcg IVP PRN PRN PRN Reason: PAIN Furosemide (Furosemide 20 Mg Tablet) 20 mg PO DAILY@0800 COUNT INCLUDES THE [facility] Last Admin: 07/17/20 08:02 Dose: 20 mg Documented by: Nitroglycerin/Dextrose (Nitroglycerin Drip) 50 mg in 250 mls @ 0 mls/hr IV .Q0M COUNT INCLUDES THE [facility]; Protocol Last Titration: 07/16/20 23:14 Dose: 0 mcg/min, 0 mls/hr Documented by: Lisinopril (Lisinopril 10 Mg Tablet) 10 mg PO DAILY COUNT INCLUDES THE [facility] Last Admin: 07/17/20 08:02 Dose: 10 mg Documented by: Magnesium Hydroxide (Magnesium Hydroxide 30 Ml Udc) 30 ml PO DAILY PRN PRN Reason: CONSTIPATION Metoprolol Tartrate (Metoprolol Tartrate 25 Mg Tablet) 25 mg PO BID@0900,2100 COUNT INCLUDES THE [facility] Last Admin: 07/17/20 08:02 Dose: 25 mg Documented by: Naloxone HCl (Naloxone 0.4 Mg/Ml Sdv) 0.1 mg IVP Q2M PRN PRN Reason: RESPIRATORY RATE < 8/MIN Nitroglycerin (Nitroglycerin 0.4 Mg Sublingual Tablet) 0.4 mg SUBLINGUAL Q5M PRN PRN Reason: CHEST PAIN Ondansetron HCl (Ondansetron 2 Mg/Ml Sdv 2 Ml) 4 mg IVP Q6H PRN PRN Reason: NAUSEA AND VOMITING Temazepam (Temazepam 15 Mg Capsule) 15 mg PO BEDTIME PRN PRN Reason: INSOMNIA Vitals/I&O/Wt Last Vital Signs Temp 98.2 F 07/17/20 03:53 Pulse 77 07/17/20 09:23 Resp 18 07/17/20 09:23 BP 118/71 07/17/20 08:47 Pulse Ox 94 07/17/20 09:23 07/16/20 07/17/20 07/17/20 22:59 06:59 14:59 Intake Total 473.7 / 587.892 6.95 / 594.842 360 / 360 Output Total 1150 / 1150 550 / 1700 Balance -676.3 / -562.108 -543.05 / -1105.158 360 / 360 Weight last 48 hrs Weight 172 lb 4.8 oz Physical Exam Narrative: EXAM NARRATIVE: GENERAL: The patient is alert and oriented times three. She is hard of hearing. Does not appear to be in any distress. HEENT: Minimal pallor with no icterus or lymphadenopathy. The pupils are symmetrical. Oral cavity: There are no mucous membrane lesions. NECK: Trachea appears to be central. No masses noted. No JVD or thyromegaly appreciated. No carotid bruit. RESPIRATORY: Chest is symmetrical. No intercostals muscle retraction or any accessory muscle activation. There is no chest wall tenderness. Breath sounds are heard bilaterally. No rales or rhonchi heard. No evidence of any consolidation. BREASTS: Deferred. HEART: The PMI could not be palpated. First and second heart sounds are normal. No S3 but there is an S4. Short systolic murmur in the left sternal border. No diastolic murmurs. No pericardial rub. ABDOMEN: No vessel pulsations or distention. No tenderness. No organomegaly appreciated. No abdominal bruit. Bowel sounds are normally heard. : Deferred. RECTAL: Deferred. LYMPHATIC: No lymphadenopathy noted in the neck or groin. EXTREMITIES: No edema or cyanosis. No clubbing. The peripheral pulses are palpable fairly good volume and amplitude. MUSCULOSKELETAL: Patient has features of flexion contracture of the right upper extremity. SKIN: There are no significant scars or skin rash noted. NEUROPSYCHIATRIC: Has some expressive aphasia. Right hemiplegia. Urinary Catheter Management^: Arguelles: Cath Placed During This Visit: yes Reason for Continuing Indwelling Catheter: Accurate Measurement of Urinary Output in Critically Ill Patients Urinary Catheter Date of Insertion: 07/16/20 Urinary Catheter Time of Insertion: 06:24 Data : 07/16/20 05:45 07/16/20 05:45 EKG 2: My Interpretation: The EKG from today revealed diffuse T inversions in the anterolateral leads with ST elevation. Q waves in the inferior leads. T inversions in the high lateral leads. A&P Assessment and plan (1) NSTEMI (non-ST elevated myocardial infarction): Since the patient was found to have no revascularizable lesions, based on the angiogram, the plan is to optimize medical treatment. I may start her on Plavix 75 mg daily, will be given for at least 3 months. May continue on the aspirin. Also may start on a low-dose of nitrates by mouth. IV nitroglycerin may be discontinued. Continue on the beta-kole, statin and other medications. Status: Acute (2) Accelerated hypertension: Currently the blood pressure is in the normal range. Patient had mild hypotension last night and the IV nitroglycerin was discontinued at that time. Her vitals will be closely monitored. Status: Acute (3) Dyslipidemia: Patient will be started on Lipitor 80 mg now and daily Status: Acute (4) History of cerebrovascular accident (CVA) greater than eight weeks in the past: We may do a carotid duplex admission to further evaluate for any significant carotid artery disease. Details of her stroke is not available at this time. Status: Acute (5) Chronic kidney disease: The patient's kidney function seems to be stable. We will continue on the current measures including careful IV hydration Status: Inactive Qualifiers: Chronic kidney disease stage: stage 3 (moderate) Chronic kidney disease stage 3 subtype: stage 3a (GFR 45-59) Qualified Code(s): N18.31 - Chronic kidney disease, stage 3a (6) Ischemic cardiomyopathy: This could be related to the recent [place]. We will be watching for any development of heart failure. We will continue on the JAMES inhibitor. Status: Acute Additional A&P Information We will continue to monitor her on the telemetry. I may repeat a troponin T today to evaluate the trend. Based on her clinical progress, further management decisions will be made Attestations Medical Necessity Statement*: Patient requires continued hospital stay for close monitoring and further management Coding Level of Care Code Acute Car Lubricator for [facility] Shon Diagnoses NSTEMI (non-ST elevated myocardial infarction) I21.4 Accelerated hypertension I10 Dyslipidemia E78.5 History of cerebrovascular accident (CVA) greater than eight weeks in the past Z86.73 Chronic kidney disease N18.31 Chronic kidney disease stage: stage 3 (moderate) Chronic kidney disease stage 3 subtype: stage 3a (GFR 45-59) Ischemic cardiomyopathy I25.5
[2020-07-17] MEDS: enoxaparin 40 mg/0.4 mL Syringe SUBCUT (10:21)
[2020-07-17] MEDS: clopidogrel 75 mg Tablet PO (10:21)
[2020-07-17 11:31] LABS: Glucose Point of Care 106 mg/dL (70-110)
[2020-07-17 12:03] LABS: Basophils % 0.3 %; Eosinophils % 0.2 %; Hematocrit 47.2 % (37.0-47.0); Lymphocytes # 0.9 10^3/uL (0.8-4.8); Lymphocytes % 7.8 %; Mean Corpuscular HGB Conc 31.8 g/dL (30.0-36.0); Mean Corpuscular Volume 97.5 fL (81-99); Mean Platelet Volume 12.4 fL (7.4-10.4); Monocytes # 1.3 10^3/uL (0.2-0.9); Monocytes % 10.4 %; Neutrophils # 9.71 10^3/uL (1.8-7.7); Neutrophils % 80.9 %; Nucleated Red Blood Cells % 0 %; Platelet Count 130 10^3/cmm (130-400); Red Blood Count 4.84 10^6/uL (4.1-5.3); Red Cell Distribution Width 14.6 % (12.1-15.1)
--- NOTE | 2020-07-17 12:03 | P.PN_ITS ---
Subjective Subjective: Interval history: This morning patient was examined, she has no particular complaints, but overnight she did have intermittent episodes of chest tightness, no shortness of breath, no lightheadedness, dizziness, no nausea, no vomiting Vitals/I&O/Wt Last Vital Signs Temp 98.2 F 07/17/20 03:53 Pulse 77 07/17/20 09:23 Resp 18 07/17/20 09:23 BP 118/71 07/17/20 08:47 Pulse Ox 94 07/17/20 09:23 07/16/20 07/17/20 07/17/20 22:59 06:59 14:59 Intake Total 473.7 / 587.892 6.95 / 594.842 360 / 360 Output Total 1150 / 1150 550 / 1700 Balance -676.3 / -562.108 -543.05 / -1105.158 360 / 360 Weight last 48 hrs Weight 78.154 kg Physical Exam Const: COMMON NORMALS: no acute distress and patient oriented x3 HENMT: COMMON NORMALS: normocephalic HEAD & SCALP: normocephalic Neck/C-Spine: COMMON NORMALS: no JVD Resp: COMMON NORMALS: normal respiratory effort, No retractions, No use of accessory muscles and clear to auscultation bilaterally AUSCULTATION: clear to auscultation bilaterally Cardio: COMMON NORMALS: no JVD, regular rate, regular rhythm, S1 normal heart sound present and S2 normal heart sound present RATE: regular rate RHYTHM: regular rhythm HEART SOUNDS: S1 normal heart sound present and S2 normal heart sound present GI: COMMON NORMALS: Normal to inspection, nondistended, normoactive bowel sounds present, Soft to palpation, non-tender, No hepatosplenomegaly present, no masses and no bruits PALPATION: Yes Soft to palpation and Yes No hepatosplenomegaly present Extremity: COMMON NORMALS: capillary refill normal, no clubbing, cyanosis or edema, no calf tenderness and no pedal edema Neuro: COMMON NORMALS: patient oriented x3 OTHER: Right upper extremity strength 1 out of 5 compared to 5 out of 5 in the left Right lower extremity strength 1 out of 5 compared to 5 out of 5 on the left Slight right facial droop No slurring of her speech This is in chronic nature Psych: COMMON NORMALS: mental status grossly normal Urinary Catheter Management^: Arguelles: Cath Placed During This Visit: yes Reason for Continuing Indwelling Catheter: Accurate Measurement of Urinary Output in Critically Ill Patients Urinary Catheter Date of Insertion: 07/16/20 Urinary Catheter Time of Insertion: 06:24 Data : 07/16/20 05:45 07/16/20 05:45 A&P Assessment and plan (1) NSTEMI (non-ST elevated myocardial infarction): Status: Acute Additional A&P Information NSTEMI Continues to have intermittent chest pain Cardiac catheterization yesterday showed a chronically occluded left anterior descending Echocardiogram shows severe hypokinesis of the mid apical septum, anteroseptum, and left ventricular apex, ejection fraction 45% cardiology is on consult Aspirin, statin, Plavix, beta-kole Continue to clinically monitor Hypokalemia: Repleted Hypertensive urgency: Off nitro drip, on Norvasc 10, clonidine 0.1 every 12 hours, Lasix 20 mg daily, lisinopril 10 mg daily, metoprolol 25 twice daily Chronic kidney disease Do not have previous creatinine level to complete her kidney function, current creatinine 1.2 Continue lisinopril Monitor urine output Repeat BMP Previous CVA history with right sided hemiparesis no acute exacerbation she has expressive aphasia, right-sided facial droop right-sided spastic hemiparesis -Needs PT OT -Recommend home health care versus detention Hyponatremia, serum sodium 129, continue to monitor Cardiac diet Full code DVT prophylaxis Lovenox Attestations Medical Necessity Statement*: Patient requires hospitalization, for NSTEMI, recurrent chest pain, history of left-sided CVA with right-sided deficits Coding Level of Care Code 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
[2020-07-17 12:20] LABS: Alanine Aminotransferase 31 U/L (0-33); Albumin Level 3.3 g/dL (3.5-5.2); Alkaline Phosphatase 56 IU/L (35-105); Anion Gap 14.1 (5-19); Aspartate Amino Transferase 101 U/L (0-32); Blood Urea Nitrogen 28 mg/dL (8-23); Calcium 9.3 mg/dL (8.5-10.5); Carbon Dioxide 21 mmol/L (22-29); Chloride 102 mmol/L (98-107); Globulin 3.2 g/dL (1.3-4.6); Glucose 94 mg/dL (65-115); Magnesium 1.8 mg/dL (1.7-2.3); Osmolality Calculated 281 mOsm/kg (285-295); Potassium 4.1 mmol/L (3.5-5.1); Sodium 133 mmol/L (136-145); Total Bilirubin 0.7 mg/dL (0.15-1.2); Total Protein 6.5 g/dL (6.6-8.7)
[2020-07-17 12:27] LABS: Troponin T (5th) Once 2688 ng/L (0-10)
--- NOTE | 2020-07-17 15:10 | PC.NURSE ---
patient is up with moderate assistance with cane and gait belt. denies any chest pain at this time.
[2020-07-17 16:24] LABS: Glucose Point of Care 133 mg/dL (70-110)
[2020-07-17] MEDS: sodium chloride 0.9% 250 ML IV (16:30)
[2020-07-17 20:35] LABS: Glucose Point of Care 141 mg/dL (70-110)
[2020-07-17] MEDS: atorvastatin 40 mg Tablet 80 MG PO (20:42)
[2020-07-18] VITALS (14 sets, daily range): BP systolic 87–111; BP diastolic 51–87; PULSE 77–102; RESP 7–26; TEMP 36.3–37.4; O2SAT 91–94
[2020-07-18 06:53] LABS: Glucose Point of Care 113 mg/dL (70-110)
[2020-07-18 07:32] LABS: Basophils % 0.2 %; Eosinophils % 0.3 %; Hematocrit 42.9 % (37.0-47.0); Hemoglobin 13.6 g/dL (11.5-15.3); Lymphocytes % 10.6 %; Mean Corpuscular HGB Conc 31.7 g/dL (30.0-36.0); Mean Corpuscular Hemoglobin 31.2 pg (28.0-34.0); Mean Corpuscular Volume 98.4 fL (81-99); Mean Platelet Volume 12.1 fL (7.4-10.4); Monocytes % 10.1 %; Neutrophils # 7.71 10^3/uL (1.8-7.7); Neutrophils % 78.2 %; Nucleated Red Blood Cells % 0 %; Platelet Count 127 10^3/cmm (130-400); Red Blood Count 4.36 10^6/uL (4.1-5.3); Red Cell Distribution Width 14.6 % (12.1-15.1); White Blood Count 9.9 10^3/uL (4.0-10.0)
[2020-07-18 07:55] LABS: Alanine Aminotransferase 22 U/L (0-33); Albumin Level 2.7 g/dL (3.5-5.2); Alkaline Phosphatase 52 IU/L (35-105); Anion Gap 13.1 (5-19); Aspartate Amino Transferase 68 U/L (0-32); Blood Urea Nitrogen 33 mg/dL (8-23); Calcium 9.1 mg/dL (8.5-10.5); Carbon Dioxide 21 mmol/L (22-29); Chloride 103 mmol/L (98-107); Globulin 3.3 g/dL (1.3-4.6); Glucose 109 mg/dL (65-115); Osmolality Calculated 284 mOsm/kg (285-295); Phosphorus 2.7 mg/dL (2.5-4.5); Potassium 4.1 mmol/L (3.5-5.1); Sodium 133 mmol/L (136-145); Total Bilirubin 0.7 mg/dL (0.15-1.2)
--- NOTE | 2020-07-18 08:00 | PC.NURSE ---
BP-90/54 on left arm Pt is awake, alert, oriented. denies any distress or pain. manually check 96/71. Trendelenburg positioned. notified. received TORB to give 500 LR bolus once.
--- NOTE | 2020-07-18 08:04 | XRR_ITS ---
PROCEDURE INFORMATION: Exam: XR Chest, 1 View Exam date and time: 07/18/2020 1:09 PM Age: 80 years old Clinical indication: Shortness of breath; Additional info: SOB TECHNIQUE: Imaging protocol: XR of the chest Views: 1 view. COMPARISON: No relevant prior studies available. FINDINGS: Lungs: Unremarkable. No consolidation. Pleural space: Unremarkable. No pleural effusion. No pneumothorax. Heart/Mediastinum: The cardiac silhouette is enlarged. Bones/joints: Unremarkable. XR/XR chest 1V portable [id number] IMPRESSION: Enlargement of the cardiac silhouette. No acute chest abnormality.
[2020-07-18] MEDS: lactated ringers 500 ML 999 ML IV ×2 (08:20→11:00)
--- NOTE | 2020-07-18 09:43 | PM.PN ---
Subjective Subjective: Interval history: Patient had some chest pain last night but denies having any complaints this morning. Her blood pressure was soft and seems like lisinopril and amlodipine were held. Medications: Reviewed: Yes Medication Review Details: Current Medications Acetaminophen (Acetaminophen 325 Mg Tablet) 650 mg PO Q6H PRN PRN Reason: MILD PAIN Al Hydrox/Mg Hydrox/Simethicone (Shuo-Tke-Lzjhrdpnf-Ruby 30 Ml Udc) 30 ml PO Q15M PRN PRN Reason: INDIGESTION Albuterol/Ipratropium (Ipratropium-Albuterol 3 Ml Neb) 3 ml INHALATION Q6H PRN PRN Reason: SHORTNESS OF BREATH Alprazolam (Alprazolam 0.25 Mg Tablet) 0.25 mg PO TID PRN PRN Reason: ANXIETY Aspirin (Aspirin 81 Mg Ec Tablet) 81 mg PO DAILY [facility] Last Admin: 07/17/20 08:02 Dose: 81 mg Documented by: Atorvastatin Calcium (Atorvastatin 40 Mg Tablet) 80 mg PO BEDTIME [facility] Last Admin: 07/17/20 20:42 Dose: 80 mg Documented by: Clopidogrel Bisulfate (Clopidogrel 75 Mg Tablet) 75 mg PO DAILY [facility] Last Admin: 07/17/20 10:21 Dose: 75 mg Documented by: Enoxaparin Sodium (Enoxaparin 40 Mg/0.4 Ml Syringe) 40 mg SUBCUT Q24H [facility] Last Admin: 07/17/20 10:21 Dose: 40 mg Documented by: Fentanyl (Fentanyl 50 Mcg/Ml Inj 2ml) 50 mcg IVP PRN PRN PRN Reason: PAIN Furosemide (Furosemide 20 Mg Tablet) 20 mg PO DAILY@0800 [facility] Last Admin: 07/17/20 08:02 Dose: 20 mg Documented by: Lisinopril (Lisinopril 10 Mg Tablet) 10 mg PO DAILY [facility] Last Admin: 07/17/20 08:02 Dose: 10 mg Documented by: Magnesium Hydroxide (Magnesium Hydroxide 30 Ml Udc) 30 ml PO DAILY PRN PRN Reason: CONSTIPATION Metoprolol Tartrate (Metoprolol Tartrate 25 Mg Tablet) 12.5 mg PO BID@0900,2100 [facility] Naloxone HCl (Naloxone 0.4 Mg/Ml Sdv) 0.1 mg IVP Q2M PRN PRN Reason: RESPIRATORY RATE < 8/MIN Nitroglycerin (Nitroglycerin 0.4 Mg Sublingual Tablet) 0.4 mg SUBLINGUAL Q5M PRN PRN Reason: CHEST PAIN Ondansetron HCl (Ondansetron 2 Mg/Ml Sdv 2 Ml) 4 mg IVP Q6H PRN PRN Reason: NAUSEA AND VOMITING Temazepam (Temazepam 15 Mg Capsule) 15 mg PO BEDTIME PRN PRN Reason: INSOMNIA Vitals/I&O/Wt Last Vital Signs Temp 97.4 F L 07/18/20 04:00 Pulse 87 07/18/20 08:00 Resp 7 L 07/18/20 08:00 BP 88/51 07/18/20 08:00 Pulse Ox 91 07/18/20 04:00 07/17/20 07/18/20 07/18/20 22:59 06:59 14:59 Intake Total 240 / 1060 500 / 500 Output Total 700 / 700 800 / 1500 Balance -460 / 360 -800 / -440 500 / 500 Physical Exam Const: COMMON NORMALS: no acute distress, patient oriented x3 and alert GENERAL APPEARANCE: cooperative, comfortable, well kempt and well hydrated HENMT: COMMON NORMALS: hearing grossly normal bilaterally, external ears normal and moist oral mucous membranes FACE & SINUS: normal facial exam EXTERNAL EAR: Yes external ears normal Eye: COMMON NORMALS: EOMs intact bilaterally and no scleral icterus GENERAL EYE: appearance normal, both eyes and all related structures ALIGNMENT: Yes alignment normal Neck/C-Spine: COMMON NORMALS: no lymphadenopathy, supple and no JVD GENERAL: Yes normal visual inspection and Yes trachea midline CAROTIDS: Yes normal carotid upstroke Lymph: LYMPHATIC: no lymphadenopathy noted Chest: COMMONS NORMALS: normal inspection of the chest and normal palpation of entire chest wall Resp: COMMON NORMALS: clear to auscultation bilaterally AUSCULTATION: clear to auscultation bilaterally, no crackles, no rales, no rhonchi and no wheezes Cardio: COMMON NORMALS: no JVD, regular rate, regular rhythm, S1 normal heart sound present, S2 normal heart sound present and Peripheral pulses 2+ throughout PALPATION: normal PMI RATE: regular rate RHYTHM: regular rhythm HEART SOUNDS: S1 normal heart sound present, S2 normal heart sound present, no gallops and no murmurs BRUITS: no carotid bruits PERIPHERAL PULSES: Peripheral pulses 2+ throughout, radial pulses present, posterior tibial pulses present and dorsalis pedis present Extremity: GENERAL: No cyanosis, No edema and No pallor Neuro: COMMON NORMALS: patient oriented x3 SENSORIUM/ORIENTATION: Yes alert Psych: COMMON NORMALS: Normal thought process present and speech normal APPEARANCE: Yes well kempt SPEECH: Yes normal speech MOOD & AFFECT: Yes euthymic mood THOUGHT PROCESS: Normal thought process present THOUGHT CONTENT: Yes Normal thought content present Urinary Catheter Management^: Arguelles: Cath Placed During This Visit: yes Reason for Continuing Indwelling Catheter: Accurate Measurement of Urinary Output in Critically Ill Patients Urinary Catheter Date of Insertion: 07/16/20 Urinary Catheter Time of Insertion: 06:24 Data : 07/18/20 05:33 07/18/20 05:33 Echo: I personally reviewed and interpreted this imaging study as follows: My impression: CONCLUSIONS Severe hypokinesia of the mid and apical septum, anteroseptum and the LV apex. LV ejection fraction around 45%. Mild mitral annular calcification. Mild pulmonary valve regurgitation. There is no pericardial effusion. There are no intracardiac masses. No previous study is available for comparison. 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 She had some moderate disease in the other vessels. Based on the angiogram findings it was opted to treat her medically. -Continue aspirin Plavix, statin and beta-kole. -Nitroglycerin sublingual as needed. -Troponin T peaked at 2748 Status: Acute (2) Accelerated hypertension: Pressure running low and on her antihypertensives had to be held. -I think this might be transient but continue closely monitor blood pressure and add antihypertensives as needed. Status: Acute (3) Dyslipidemia: Status: Acute (4) History of cerebrovascular accident (CVA) greater than eight weeks in the past: -Previous CVA with right-sided hemiparesis Status: Acute (5) Chronic kidney disease: MINDY on CKD stage III -Creatinine 1.5 today increased from 1.3. Status: Inactive Qualifiers: Chronic kidney disease stage: stage 3 (moderate) Chronic kidney disease stage 3 subtype: stage 3a (GFR 45-59) Qualified Code(s): N18.31 - Chronic kidney disease, stage 3a (6) Ischemic cardiomyopathy: This could be related to the recent [place]. We will be watching for any development of heart failure. We will continue on the JAMES inhibitor. Status: Acute Additional A&P Information Thrombocytopenia Elevated AST Hypoalbuminemia Attestations Medical Necessity Statement*: Patient requires continued hospital stay for close monitoring after NSTEMI and further management Coding Level of Care Code Acute Store Host for Chg Fwd Exam Comprehensive Diagnoses NSTEMI (non-ST elevated myocardial infarction) I21.4 Accelerated hypertension I10 Dyslipidemia E78.5 History of cerebrovascular accident (CVA) greater than eight weeks in the past Z86.73 Chronic kidney disease N18.31 Chronic kidney disease stage: stage 3 (moderate) Chronic kidney disease stage 3 subtype: stage 3a (GFR 45-59) Ischemic cardiomyopathy I25.5
[2020-07-18] MEDS: aspirin 81 mg EC Tablet PO (09:57)
[2020-07-18] MEDS: clopidogrel 75 mg Tablet PO (09:57)
[2020-07-18] MEDS: metoprolol tartrate 25 mg Tablet 12.5 MG PO (09:58)
--- NOTE | 2020-07-18 10:44 | PC.NURSE ---
Addendum entered by Lionel Royal RN 07/18/20 11:03: SVI=62.7% Original Note: cheetah performed for PLR dynamic assessment SVI-44; CI-3.8, HR-87; pt fluid responsive. Notified
--- NOTE | 2020-07-18 10:45 | USCV_ITS ---
ArnulfoAaliyah Age: 80 Gender: F : 1940 Exam Date: 07/18/2020 14:00 Ordering Phys: Angelo Gaona MD Technologist: Mary Carmen Lin Exam Location: [facility] [place] Indication: cad BP: 92 / 67 HR: 91 Rhythm: Sinus Technical Quality: Adequate MEASUREMENTS (Male / Female) Normal Values 2D ECHO LV Diastolic Diameter PLAX 4.3 cm 4.2 - 5.9 / 3.9 - 5.3 cm LV Systolic Diameter PLAX 1.1 cm IVS Diastolic Thickness 1.8 cm 0.6 - 1.0 / 0.6 - 0.9 cm IVS Systolic Thickness 1.7 cm LVPW Diastolic Thickness 1.1 cm 0.6 - 1.0 / 0.6 - 0.9 cm LVPW Systolic Thickness 2.2 cm LVOT Diameter 1.4 cm LA Diameter 3.3 cm LA Width 2.8 cm LA Height 5.1 cm RA Width 2.6 cm RA Height 3.8 cm Aorta at Sinotubular Diameter 3.0 cm M-MODE LV Diastolic Diameter MM 7.5 cm 4.2 - 5.9 / 3.9 - 5.3 cm LV Systolic Diameter MM 5.4 cm LV Ejection Fraction MM Teich 51.8 % IVS Diastolic Thickness MM 0.8 cm 0.6 - 1.0 / 0.6 - 0.9 cm IVS Systolic Thickness MM 1.1 cm LVPW Diastolic Thickness MM 1.4 cm 0.6 - 1.0 / 0.6 - 0.9 cm LVPW Systolic Thickness MM 3.1 cm Aortic Annulus Diameter 3.1 cm LA Ao Ratio MM 1.1 DOPPLER AV Peak Velocity 121.0 cm/s LVOT Peak Velocity 126.0 cm/s AV Area Cont Eq vti 1.6 cm squared AV Area Cont Eq pk 1.5 cm squared MV Peak Velocity 119.0 cm/s MV Area PHT 5.1 cm squared Mitral E to A Ratio 0.6 MV E' Velocity 40.5 cm/s Mitral E to MV E' Ratio 16.5 Mitral E to LV E' Lateral Ratio 18.0 Mitral E to LV E' Septal Ratio 15.2 TR Peak Velocity 59.0 cm/s TR Peak Gradient 1.4 mmHg Right Atrial Pressure 3.0 mmHg Pulmonary Artery Systolic Pressu 4.4 mmHg PV Peak Velocity 119.0 cm/s RV Acceleration Time 0.1 s RV Ejection Time 0.2 s RV AcT/ET 0.3 FINDINGS Left Ventricle Mildly increased left ventricular cavity size. Moderately decreased left ventricular systolic function. Mid to distal anterior septal and apical akinesis.left ventricular ejection fraction is estimated at 40 %. Grade I/IV diastolic dysfunction (abnormal relaxation filling pattern), normal to mildly elevated filling pressures. Right Ventricle The right ventricle is normal in size and function. Right Atrium The right atrium is normal in size. Left Atrium The left atrium is normal in size. Mitral Valve Mildly thickened mitral valve. No mitral valve stenosis. Trace mitral valve regurgitation. Aortic Valve Moderate aortic valve calcification. No aortic valve stenosis. Trace aortic valve regurgitation. Tricuspid Valve Structurally normal tricuspid valve without significant stenosis or regurgitation. Pulmonary artery systolic pressure is normal. Pulmonic Valve Structurally normal pulmonic valve without significant stenosis. There is no pulmonic regurgitation. Pericardium Trivial pericardial effusion. Aorta Normal ascending aorta dimension. CONCLUSIONS 1-Mildly increased left ventricular cavity size. Moderately decreased left ventricular systolic function. Mid to distal anterior septal and apical akinesis.left ventricular ejection fraction is estimated at 40 %. Grade I/IV diastolic dysfunction (abnormal relaxation filling pattern), normal to mildly elevated filling pressures. 2-Mildly thickened mitral valve. No mitral valve stenosis. Trace mitral valve regurgitation. 3-Moderate aortic valve calcification. No aortic valve stenosis. Trace aortic valve regurgitation. 4-Trivial pericardial effusion. 5-Right atrial pressure is around 5 mm of mercury. 6-No significant change since the prior echocardiogram study of 07/16/2020. Alessia Amezcua MD (Electronically Signed) Final Date: 18 July 2020 16:44 S
[2020-07-18] MEDS: enoxaparin 40 mg/0.4 mL Syringe SUBCUT (11:50)
[2020-07-18 11:59] LABS: Glucose Point of Care 99 mg/dL (70-110)
--- NOTE | 2020-07-18 12:38 | PC.NURSE ---
MANUALLY CHECK BP ON LEFT ARM AUSCULTATED 94/58, MAP-70.
--- NOTE | 2020-07-18 14:47 | P.PN_ITS ---
Subjective Subjective: Interval history: This morning patient was examined, she is alert to person, place, not to time, she follows all commands, she does have persistent right upper and right lower extremity weakness, productive aphasia, she has no particular complaints, but tells me that she is worried about her low blood pressures, no chest pain, no shortness of breath, no lightheadedness, no dizziness Vitals/I&O/Wt Last Vital Signs Temp 97.4 F L 07/18/20 04:00 Pulse 84 07/18/20 12:00 Resp 19 H 07/18/20 12:00 BP 94/58 07/18/20 12:51 Pulse Ox 93 07/18/20 12:00 07/17/20 07/18/20 07/18/20 22:59 06:59 14:59 Intake Total 240 / 1060 1518 / 1518 Output Total 700 / 700 800 / 1500 Balance -460 / 360 -800 / -440 1518 / 1518 Physical Exam Const: COMMON NORMALS: no acute distress GENERAL APPEARANCE: cooperative ORIENTATION/CONSCIOUSNESS: Yes awake, Yes oriented to person and Yes oriented to place; not oriented to time HENMT: COMMON NORMALS: normocephalic HEAD & SCALP: normocephalic Neck/C-Spine: COMMON NORMALS: no JVD Resp: COMMON NORMALS: normal respiratory effort, No retractions, No use of acc essory muscles and clear to auscultation bilaterally AUSCULTATION: clear to auscultation bilaterally Cardio: COMMON NORMALS: no JVD, regular rate, regular rhythm, S1 normal heart sound present and S2 normal heart sound present RATE: regular rate RHYTHM: regular rhythm HEART SOUNDS: S1 normal heart sound present and S2 normal heart sound present GI: COMMON NORMALS: Normal to inspection, nondistended, normoactive bowel sounds present, Soft to palpation, non-tender, No hepatosplenomegaly present, no masses and no bruits PALPATION: Yes Soft to palpation and Yes No hepatosplenomegaly present Extremity: COMMON NORMALS: capillary refill normal, no clubbing, cyanosis or edema, no calf tenderness and no pedal edema Neuro: SENSORIUM/ORIENTATION: Yes oriented to person, Yes oriented to place and No oriented to time OTHER: Right upper extremity strength 1 out of 5 compared to 5 out of 5 in the left Right lower extremity strength 1 out of 5 compared to 5 out of 5 on the left Slight right facial droop No slurring of her speech This is in chronic nature Psych: COMMON NORMALS: mental status grossly normal Urinary Catheter Management^: Arguelles: Cath Placed During This Visit: yes Reason for Continuing Indwelling Catheter: Accurate Measurement of Urinary Output in Critically Ill Patients Urinary Catheter Date of Insertion: 07/16/20 Urinary Catheter Time of Insertion: 06:24 Data : 07/18/20 05:33 07/18/20 05:33 A&P Assessment and plan (1) NSTEMI (non-ST elevated myocardial infarction): Status: Acute (2) Hypotension: Status: Acute Additional A&P Information Hypotension: -Likely secondary to blood pressure medications -Was quite hypertensive on admission, multiple blood pressure medications were started -Hold Norvasc, hold metoprolol, hold Lasix -EF is 40%, has diffuse hypokinesis -To 500 cc boluses provided, blood pressures are slightly better, she is fluid responsive -No infectious source, no leukocytosis, afebrile -Continue to hold all blood pressure medications -Hold off on further IV hydration given risk of fluid overload -If required we can always start her on midodrine for short-te NSTEMI Continues to have intermittent chest pain Cardiac catheterization yesterday showed a chronically occluded left anterior descending, some moderate disease in other vessels Echocardiogram shows severe hypokinesis of the mid apical septum, anteroseptum, and left ventricular apex, ejection fraction 45% cardiology is on consult Aspirin, statin, Plavix, beta-kole Continue to clinically monitor Hypokalemia: Repleted Hypertensive urgency: Resolved, now hypotensive Chronic kidney disease Do not have previous creatinine level to complete her kidney function, current creatinine 1.2 Continue lisinopril Monitor urine output Repeat BMP Previous CVA history with right sided hemiparesis no acute exacerbation she has expressive aphasia, right-sided facial droop right-sided spastic hemiparesis -Needs PT OT -Recommend home health care versus long term, patient family wants home health care Hyponatremia, serum sodium 133, continue to monitor Cardiac diet Full code DVT prophylaxis Lovenox Attestations Medical Necessity Statement*: Patient requires hospitalization for NSTEMI, now with hypotension, Coding Level of Care 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
[2020-07-18 14:50] LABS: Lactic Sepsis W/Reflex 1.4 mmol/L (0.5-2.2)
[2020-07-18 20:30] LABS: Glucose Point of Care 114 mg/dL (70-110)
[2020-07-18] MEDS: atorvastatin 40 mg Tablet 80 MG PO (20:38)
[2020-07-19] VITALS (34 sets, daily range): BP systolic 83–114; BP diastolic 56–85; PULSE 94–120; RESP 5–26; TEMP 36.9–37.1; O2SAT 90–97
[2020-07-19 05:36] LABS: Basophils % 0.1 %; Eosinophils # 0.1 10^3/uL (0.0-0.8); Hematocrit 41.2 % (37.0-47.0); Hemoglobin 12.9 g/dL (11.5-15.3); Lymphocytes # 0.8 10^3/uL (0.8-4.8); Lymphocytes % 11.7 %; Mean Corpuscular HGB Conc 31.3 g/dL (30.0-36.0); Mean Platelet Volume 11.9 fL (7.4-10.4); Monocytes # 0.8 10^3/uL (0.2-0.9); Monocytes % 11.2 %; Neutrophils # 5.14 10^3/uL (1.8-7.7); Neutrophils % 75.6 %; Nucleated Red Blood Cells % 0 %; Platelet Count 105 10^3/cmm (130-400); Red Blood Count 4.16 10^6/uL (4.1-5.3); Red Cell Distribution Width 14.7 % (12.1-15.1); White Blood Count 6.8 10^3/uL (4.0-10.0)
[2020-07-19 05:56] LABS: Lactate (Lactic Acid level) 0.7 mmol/L (0.5-2.2)
[2020-07-19 06:05] LABS: Alanine Aminotransferase 21 U/L (0-33); Albumin Level 2.8 g/dL (3.5-5.2); Alkaline Phosphatase 44 IU/L (35-105); Aspartate Amino Transferase 44 U/L (0-32); Blood Urea Nitrogen 38 mg/dL (8-23); Calcium 8.5 mg/dL (8.5-10.5); Carbon Dioxide 21 mmol/L (22-29); Chloride 103 mmol/L (98-107); Glucose 81 mg/dL (65-115); Magnesium 1.8 mg/dL (1.7-2.3); NT Pro B Type Natriuretic Pept 24732 pg/mL (0-450); Osmolality Calculated 284 mOsm/kg (285-295); Phosphorus 3.3 mg/dL (2.5-4.5); Sodium 133 mmol/L (136-145); Total Bilirubin 0.4 mg/dL (0.15-1.2); Total Protein 5.8 g/dL (6.6-8.7)
[2020-07-19 06:34] LABS: Glucose Point of Care 83 mg/dL (70-110)
--- NOTE | 2020-07-19 07:00 | XRR_ITS ---
PROCEDURE INFORMATION: Exam: XR Chest, 1 View Exam date and time: 07/19/2020 7:59 AM Age: 80 years old Clinical indication: Shortness of breath; Additional info: SOB TECHNIQUE: Imaging protocol: XR of the chest Views: 1 view. COMPARISON: CR (CHEST, ) 07/18/2020 12:55 PM FINDINGS: Lungs: The right lung is clear. Mild atelectasis and/or scarring at the left lung base. Pulmonary vasculature within normal limits. Pleural space: No visible pneumothorax or pleural effusion. Heart/Mediastinum: Heart size upper limits of normal. Bones/joints: No emergent findings identified. XR/XR chest 1V portable [id number] IMPRESSION: 1. No radiographic findings of acute cardiopulmonary disease.
--- NOTE | 2020-07-19 08:11 | PC.NURSE ---
Dr kirkpatrick at bedside at this time
--- NOTE | 2020-07-19 08:21 | CTR_ITS ---
PROCEDURE INFORMATION: Exam: CT Head Without Contrast Exam date and time: 07/19/2020 8:37 AM Age: 80 years old Clinical indication: Altered mental status/memory loss; Confusion or disorientation; Additional info: [facility] fro watershed stroke TECHNIQUE: Imaging protocol: Computed tomography of the head without contrast. Radiation optimization: All CT scans at this facility use at least one of these dose optimization techniques: automated exposure control; mA and/or kV adjustment per patient size (includes targeted exams where dose is matched to clinical indication); or iterative reconstruction. COMPARISON: No relevant prior studies available. RADIATION DOSE METRICS: Total DLP (mGy-cm): 739.48 FINDINGS: Brain: There is an old infarct in the left insula involving the left basal ganglia. There is compensatory enlargement of the left lateral ventricle and frontal horn. There is generalized prominence of the ventricles and sulci. Chronic white matter ischemic changes are present. No intracranial hemorrhage, edema or other acute abnormalities are seen. Cerebral ventricles: See Brain finding. Bones/joints: Unremarkable. No acute fracture. Paranasal sinuses: There is mucosal thickening in the paranasal sinuses with some fluid in the sphenoid sinuses consistent with sinusitis. Mastoid air cells: Visualized mastoid air cells are well aerated. Soft tissues: Unremarkable. CT/CT head wo con* [id number] IMPRESSION: 1. 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 2. Chronic atrophy with chronic white matter ischemic changes. 3. No acute abnormalities are seen in the brain. Radiation Dose CTDIVOL = (mGy): DLP = 739.48 (mGy-cm)
--- NOTE | 2020-07-19 08:41 | P.PN_ITS ---
Subjective Subjective: Interval history: Intake of ~1800 ml with positive balance of 800 ml. Patient complains of dizziness but denies having any chest pain or shortness of breath. -She received 250 mg IV bolus earlier today. Medications: Reviewed: Yes Medication Review Details: Current Medications Acetaminophen (Acetaminophen 325 Mg Tablet) 650 mg PO Q6H PRN PRN Reason: MILD PAIN Al Hydrox/Mg Hydrox/Simethicone (Snbc-Hgz-Gvtjimdty-Ruby 30 Ml Udc) 30 ml PO Q15M PRN PRN Reason: INDIGESTION Albuterol/Ipratropium (Ipratropium-Albuterol 3 Ml Neb) 3 ml INHALATION Q6H PRN PRN Reason: SHORTNESS OF BREATH Alprazolam (Alprazolam 0.25 Mg Tablet) 0.25 mg PO TID PRN PRN Reason: ANXIETY Aspirin (Aspirin 81 Mg Ec Tablet) 81 mg PO DAILY [facility] Last Admin: 07/18/20 09:57 Dose: 81 mg Documented by: Atorvastatin Calcium (Atorvastatin 40 Mg Tablet) 80 mg PO BEDTIME [facility] Last Admin: 07/18/20 20:38 Dose: 80 mg Documented by: Clopidogrel Bisulfate (Clopidogrel 75 Mg Tablet) 75 mg PO DAILY [facility] Last Admin: 07/18/20 09:57 Dose: 75 mg Documented by: Enoxaparin Sodium (Enoxaparin 40 Mg/0.4 Ml Syringe) 40 mg SUBCUT Q24H [facility] Last Admin: 07/18/20 11:50 Dose: 40 mg Documented by: Fentanyl (Fentanyl 50 Mcg/Ml Inj 2ml) 50 mcg IVP PRN PRN PRN Reason: PAIN Furosemide (Furosemide 20 Mg Tablet) 20 mg PO DAILY@0800 [facility] Last Admin: 07/18/20 09:43 Dose: Not Given Documented by: Sodium Chloride (Sodium Chloride 0.9%) 1,000 mls @ 50 mls/hr IV .Q20H [facility] Sodium Chloride (Sodium Chloride 0.9%) 250 mls @ 250 mls/hr IV ONCE ONE Stop: 07/19/20 09:01 Influenza Virus Vaccine Quadrival (Flu Vacc Pf 2019- (6 Mos+)) 60 mcg IM .ONCE ONE Stop: 07/19/20 09:01 Lisinopril (Lisinopril 10 Mg Tablet) 10 mg PO DAILY [facility] Last Admin: 07/18/20 09:44 Dose: Not Given Documented by: Magnesium Hydroxide (Magnesium Hydroxide 30 Ml Udc) 30 ml PO DAILY PRN PRN Reason: CONSTIPATION Metoprolol Tartrate (Metoprolol Tartrate 25 Mg Tablet) 12.5 mg PO BID@0900,2100 KEVIN Last Admin: 07/18/20 09:58 Dose: 12.5 mg Documented by: Naloxone HCl (Naloxone 0.4 Mg/Ml Sdv) 0.1 mg IVP Q2M PRN PRN Reason: RESPIRATORY RATE < 8/MIN Nitroglycerin (Nitroglycerin 0.4 Mg Sublingual Tablet) 0.4 mg SUBLINGUAL Q5M PRN PRN Reason: CHEST PAIN Ondansetron HCl (Ondansetron 2 Mg/Ml Sdv 2 Ml) 4 mg IVP Q6H PRN PRN Reason: NAUSEA AND VOMITING Pneumococcal Polyvalent Vaccine (Pneumococcal (23 Valent) Sdv 0.5 Ml) 0.5 ml IM .ONCE ONE Stop: 07/19/20 09:01 Temazepam (Temazepam 15 Mg Capsule) 15 mg PO BEDTIME PRN PRN Reason: INSOMNIA Vitals/I&O/Wt Last Vital Signs Temp 98.8 F 07/19/20 07:26 Pulse 97 07/19/20 07:51 Resp 16 07/19/20 07:51 BP 98/64 07/19/20 07:26 Pulse Ox 93 07/19/20 07:51 07/18/20 07/19/20 07/19/20 22:59 06:59 14:59 Intake Total 6 / 1993 Output Total 1000 / 1000 Balance -524 / 994 Physical Exam Narrative: EXAM NARRATIVE: Const COMMON NORMALS: no acute distress, patient oriented x3 and alert GENERAL APPEARANCE: cooperative, comfortable, well kempt and well hydrated [facility] COMMON NORMALS: hearing grossly normal bilaterally, external ears normal and moist oral mucous membranes FACE & SINUS: normal facial exam EXTERNAL EAR: Yes external ears normal Eye COMMON NORMALS: EOMs intact bilaterally and no scleral icterus GENERAL EYE: appearance normal, both eyes and all related structures ALIGNMENT: Yes alignment normal Neck/C-Spine COMMON NORMALS: no lymphadenopathy, supple and no JVD GENERAL: Yes normal visual inspection and Yes trachea midline CAROTIDS: Yes normal carotid upstroke Lymph LYMPHATIC: no lymphadenopathy noted Chest COMMONS NORMALS: normal inspection of the chest and normal palpation of entire chest wall Resp COMMON NORMALS: clear to auscultation bilaterally AUSCULTATION: clear to auscultation bilaterally, no crackles, no rales, no rhonchi and no wheezes Cardio COMMON NORMALS: no JVD, regular rate, regular rhythm, S1 normal heart sound present, S2 normal heart sound present and Peripheral pulses 2+ throughout PALPATION: normal PMI RATE: regular rate RHYTHM: regular rhythm HEART SOUNDS: S1 normal heart sound present, S2 normal heart sound present, no gallops and no murmurs BRUITS: no carotid bruits PERIPHERAL PULSES: Peripheral pulses 2+ throughout, radial pulses present, posterior tibial pulses present and dorsalis pedis present Extremity GENERAL: No cyanosis, No edema and No pallor Neuro COMMON NORMALS: patient oriented x3 SENSORIUM/ORIENTATION: Yes alert Psych COMMON NORMALS: Normal thought process present and speech normal APPEARANCE: Yes well kempt SPEECH: Yes normal speech MOOD & AFFECT: Yes euthymic mood THOUGHT PROCESS: Normal thought process present THOUGHT CONTENT: Yes Normal thought content present Urinary Catheter Management^: Arguelles: Cath Placed During This Visit: yes Reason for Continuing Indwelling Catheter: Accurate Measurement of Urinary Output in Critically Ill Patients Urinary Catheter Date of Insertion: 07/16/20 Urinary Catheter Time of Insertion: 06:24 Data : 07/19/20 04:39 07/19/20 04:39 Echo: I personally reviewed and interpreted this imaging study as follows: My impression: TTE (07/18/20) CONCLUSIONS 1-Mildly increased left ventricular cavity size. Moderately decreased left ventricular systolic function. Mid to distal anterior septal and apical akinesis.left ventricular ejection fraction is estimated at 40 %. Grade I/IV diastolic dysfunction (abnormal relaxation filling pattern), normal to mildly elevated filling pressures. 2-Mildly thickened mitral valve. No mitral valve stenosis. Trace mitral valve regurgitation. 3-Moderate aortic valve calcification. No aortic valve stenosis. Trace aortic valve regurgitation. 4-Trivial pericardial effusion. 5-Right atrial pressure is around 5 mm of mercury. 6-No significant change since the prior echocardiogram study of 07/16/2020. 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 She had some moderate disease in the other vessels. Based on the angiogram findings it was opted to treat her medically. -Continue aspirin Plavix, statin and beta-kole. -Nitroglycerin sublingual as needed. -Troponin T peaked at 2748 and since then has trended down to 2688 on last check. -NT proBNP of 24,732. Status: Acute (2) Accelerated hypertension: Pressure running low and all her antihypertensives had to be held. -I think this might be transient but continue closely monitor blood pressure and add antihypertensives as needed. Status: Acute (3) Dyslipidemia: Status: Acute (4) History of cerebrovascular accident (CVA) greater than eight weeks in the past: -Previous CVA with right-sided hemiparesis. Status: Acute (5) Chronic kidney disease: MINDY on CKD stage III -Creatinine 1.6 today increased from 1.5 and BUN has increased to 38 from 33. -She received 250 mL IV bolus this morning we will give her another 250 bolus. -Unchanged left ventricular ejection fraction of 40% when compared to echo 3 days back. Status: Inactive Qualifiers: Chronic kidney disease stage: stage 3 (moderate) Chronic kidney disease stage 3 subtype: stage 3a (GFR 45-59) Qualified Code(s): N18.31 - Chronic kidney disease, stage 3a (6) Ischemic cardiomyopathy: This could be related to the recent SC. We will be watching for any development of heart failure. JAMES inhibitor held. 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
[2020-07-19] MEDS: sodium chloride 0.9% 250 ML IV (09:16)
--- NOTE | 2020-07-19 09:16 | PC.NURSE ---
delay in medication administration due to testing
--- NOTE | 2020-07-19 09:17 | PC.NURSE ---
Dr. kirkpatrick gave verbal instruction while on unit to give 250ml normal saline bolus and hold maintenance fluids at this time
[2020-07-19] MEDS: clopidogrel 75 mg Tablet PO (09:20)
[2020-07-19] MEDS: enoxaparin 40 mg/0.4 mL Syringe SUBCUT (09:20)
[2020-07-19] MEDS: aspirin 81 mg EC Tablet PO (09:20)
--- NOTE | 2020-07-19 09:32 | PC.SOCIAL ---
Pg 2 IMM Explained to pt Pg 2 IMM. Provided pt a copy. No questions voiced. Signed, dated, & timed a copy & placed in chart.
[2020-07-19 09:47] LABS: Add Urine Microscopic? YES; Bilirubin Urine Neg (Negative); Blood Urine 2+ (Negative); Glucose Urine UA Norm (Normal); Ketones Urine Negative (Negative); Leukocyte Esterase Urine 1+ (Negative); Nitrate Urine Negative (Negative); Potassium, Radom Urine 18 mmol/L; Protein Urine Trace (Negative); Urine Appearance Hazy (CLEAR); Urine Color Yellow (Yellow); Urine Creatinine 86 mg/dL (28-217); Urine Random Chloride 40 mmol/L; Urine Random Sodium 53 mmol/L; Urobilinogen Urine Norm (Negative); pH Urine 5 (5-7)
[2020-07-19 10:00] LABS: Bacteria Urine 2+ /hpf; RBC Urine 0-4 /hpf (0-2)
[2020-07-19] MEDS: pneumococcal (23 valent) SDV 0.5 mL IM (10:00)
[2020-07-19 10:01] LABS: Amorphous Sediment Urine 2+ /hpf; Mucus Urine 1+ /hpf
--- NOTE | 2020-07-19 10:12 | PC.NURSE ---
Clarified with Dr kirkpatrick orders for PNE and flu vacc to be given. patient agreeable to vaccinations and reports she has not had them and wants them, patient educated on risk benefits and possible side effects of having and/or not taking vaccine patient verbalized understanding. Medication administration late due to order clarification.
[2020-07-19 10:15] LABS: Urea Nitrogen,Urine Random 765 mg/dL
--- NOTE | 2020-07-19 10:22 | PC.NURSE ---
family notified patient bedroom change
[2020-07-19 11:51] LABS: Glucose Point of Care 246 mg/dL (70-110)
--- NOTE | 2020-07-19 12:37 | P.PN_ITS ---
Subjective Subjective: Interval history: This morning patient was examined, she has word finding difficulty, which is not new, continues to have right upper right lower extremity weakness, which is not new, she has no particular complaints, blood pressure still remain on the lower end, she tells me that whenever she moves in bed, she feels lightheaded, no nausea, no vomiting, no chest pain, no palpitations Vitals/I&O/Wt Last Vital Signs Temp 98.8 F 07/19/20 07:26 Pulse 97 07/19/20 07:51 Resp 16 07/19/20 07:51 BP 98/64 07/19/20 07:26 Pulse Ox 93 07/19/20 07:51 07/18/20 07/19/20 07/19/20 22:59 06:59 14:59 Intake Total 1993 360 / 360 Output Total 1000 / 1000 Balance -524 / 994 360 / 360 Physical Exam Const: COMMON NORMALS: no acute distress and patient oriented x3 GENERAL APPEARANCE: cooperative ORIENTATION/CONSCIOUSNESS: Yes awake, Yes oriented to person and Yes oriented to place; not oriented to time HENMT: COMMON NORMALS: normocephalic HEAD & SCALP: normocephalic Neck/C-Spine: COMMON NORMALS: no JVD Resp: COMMON NORMALS: normal respiratory effort, No retractions, No use of acc essory muscles and clear to auscultation bilaterally AUSCULTATION: clear to auscultation bilaterally Cardio: COMMON NORMALS: no JVD, regular rate, regular rhythm, S1 normal heart sound present and S2 normal heart sound present RATE: regular rate RHYTHM: regular rhythm HEART SOUNDS: S1 normal heart sound present and S2 normal heart sound present GI: COMMON NORMALS: Normal to inspection, nondistended, normoactive bowel sounds present, Soft to palpation, non-tender, No hepatosplenomegaly present, no masses and no bruits PALPATION: Yes Soft to palpation and Yes No hepatosplenomegaly present Extremity: COMMON NORMALS: capillary refill normal, no clubbing, cyanosis or edema, no calf tenderness and no pedal edema Neuro: COMMON NORMALS: patient oriented x3 SENSORIUM/ORIENTATION: Yes oriented to person, Yes oriented to place and No oriented to time OTHER: Righ t upper extremity strength 1 out of 5 compared to 5 out of 5 in the left Right lower extremity strength 1 out of 5 compared to 5 out of 5 on the left Slight right facial droop No slurring of her speech This is in chronic nature Psych: COMMON NORMALS: mental status grossly normal Urinary Catheter Management^: Arguelles: Cath Placed During This Visit: yes Reason for Continuing Indwelling Catheter: Accurate Measurement of Urinary Output in Critically Ill Patients Urinary Catheter Date of Insertion: 07/16/20 Urinary Catheter Time of Insertion: 06:24 Data : 07/19/20 04:39 07/19/20 04:39 A&P Assessment and plan (1) NSTEMI (non-ST elevated myocardial infarction): Status: Acute (2) Hypotension: Status: Acute Additional A&P Information Hypotension: -Remains hypotensive -Likely secondary to blood pressure medications -Was quite hypertensive on admission, multiple blood pressure medications were started -Hold Norvasc, hold metoprolol, hold Lasix -EF is 40%, has diffuse hypokinesis -Received several boluses yesterday, 250 cc bolus this morning, her sv delta was 40, fluid responsive -Echocardiogram shows EF of 40% -No infectious source, no leukocytosis, afebrile -Continue to hold all blood pressure medications -Hold off on further IV hydration given risk of fluid overload -CT of the head was negative for watershed stroke, old left basal ganglia and insular infarct -We will try to keep her flat, neurochecks NSTEMI Continues to have intermittent chest pain Cardiac catheterization yesterday showed a chronically occluded left anterior descending, some moderate disease in other vessels Echocardiogram shows severe hypokinesis of the mid apical septum, anteroseptum, and left ventricular apex, ejection fraction 45% cardiology is on consult Aspirin, statin, Plavix, beta-kole Continue to clinically monitor MINDY: Likely secondary to his hypotension, creatinine 1.6, has received fluid boluses, kiarra lcoutinue to monitor Is on 2 L, concerns for fluid overload, chest x-ray shows no fluid overload BNP is elevated, but likely secondary to BMI, continue to monitor, I feel that likely secondary to JAROD Hypokalemia: Repleted Hypertensive urgency: Resolved, now hypotensive Chronic kidney disease Do not have previous creatinine level to complete her kidney function, current creatinine 1.2 Continue lisinopril Monitor urine output Repeat BMP Previous CVA history with right sided hemiparesis no acute exacerbation she has expressive aphasia, right-sided facial droop right-sided spastic hemiparesis -Needs PT OT -Recommend home health care versus custodial, patient family wants home health care Hyponatremia, serum sodium 133, continue to monitor thrombocytopenia, cell count 105, continue monitor c Cardiac diet Full code DVT prophylaxis Lovenox Attestations Medical Necessity Statement*: Patient requires hospitalization for NSTEMI, now with hypotension, MINDY Coding Level of Care Code 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
--- NOTE | 2020-07-19 13:32 | PC.NURSE ---
Dr lou at bedside for assessment and discussion of plan of care; verbal instruction given to give 250ml normal saline bolus
[2020-07-19] MEDS: sodium chloride 0.9% 250 ML 999 ML IV (14:18)
[2020-07-19 14:19] LABS: Eosinophil Urine No Eosinophils Seen; Urine Eosinophil Count 0 (0-0)
[2020-07-19 16:45] LABS: Glucose Point of Care 121 mg/dL (70-110)
[2020-07-19 20:19] LABS: Glucose Point of Care 130 mg/dL (70-110)
[2020-07-19] MEDS: atorvastatin 40 mg Tablet 80 MG PO (20:31)
[2020-07-20] VITALS (12 sets, daily range): BP systolic 87–106; BP diastolic 50–94; PULSE 98–121; RESP 14–24; TEMP 35.9–37.6; O2SAT 93–97
--- NOTE | 2020-07-20 00:20 | PC.NURSE ---
PT RESTING IN BED. PT DENIES PAIN. PT WAS REPOSITIONED. WILL CONTINUE TO MONITOR.
[2020-07-20 03:38] LABS: Basophils % 0.4 %; Eosinophils # 0.1 10^3/uL (0.0-0.8); Eosinophils % 1.3 %; Hemoglobin 12.1 g/dL (11.5-15.3); Lymphocytes # 0.7 10^3/uL (0.8-4.8); Lymphocytes % 11.7 %; Mean Corpuscular Hemoglobin 30.5 pg (28.0-34.0); Mean Corpuscular Volume 98.2 fL (81-99); Mean Platelet Volume 11.8 fL (7.4-10.4); Monocytes # 0.6 10^3/uL (0.2-0.9); Monocytes % 11.6 %; Neutrophils # 4.14 10^3/uL (1.8-7.7); Neutrophils % 74.6 %; Nucleated Red Blood Cells % 0 %; Platelet Count 105 10^3/cmm (130-400); Red Blood Count 3.97 10^6/uL (4.1-5.3); Red Cell Distribution Width 14.5 % (12.1-15.1); White Blood Count 5.5 10^3/uL (4.0-10.0)
[2020-07-20 04:06] LABS: Lactate (Lactic Acid level) 0.9 mmol/L (0.5-2.2)
[2020-07-20 04:15] LABS: Alanine Aminotransferase 27 U/L (0-33); Albumin Level 2.7 g/dL (3.5-5.2); Alkaline Phosphatase 43 IU/L (35-105); Anion Gap 12.8 (5-19); Aspartate Amino Transferase 47 U/L (0-32); Blood Urea Nitrogen 31 mg/dL (8-23); Carbon Dioxide 19 mmol/L (22-29); Chloride 104 mmol/L (98-107); Globulin 2.9 g/dL (1.3-4.6); Glucose 89 mg/dL (65-115); Magnesium 1.7 mg/dL (1.7-2.3); NT Pro B Type Natriuretic Pept 22229 pg/mL (0-450); Osmolality Calculated 280 mOsm/kg (285-295); Phosphorus 2.7 mg/dL (2.5-4.5); Potassium 3.8 mmol/L (3.5-5.1); Sodium 132 mmol/L (136-145); Total Bilirubin 0.4 mg/dL (0.15-1.2); Total Protein 5.6 g/dL (6.6-8.7)
[2020-07-20] MEDS: sodium chloride 0.9% 1,000 ML 50 ML IV (04:58)
[2020-07-20 06:46] LABS: Glucose Point of Care 100 mg/dL (70-110)
--- NOTE | 2020-07-20 06:49 | PC.NURSE ---
PT RESTING IN BED. PT DENIES PAIN. PT NEEDED SOME HELP CLEANING UP WITH AN INCONTINENT EPISODE. PT WAS CLEANED AND REPOSITIONED. WILL CONTINUE TO MONITOR.
[2020-07-20] MEDS: enoxaparin 40 mg/0.4 mL Syringe SUBCUT (08:38)
[2020-07-20] MEDS: aspirin 81 mg EC Tablet PO (08:38)
[2020-07-20] MEDS: clopidogrel 75 mg Tablet PO (08:38)
--- NOTE | 2020-07-20 11:05 | PC.NURSE ---
Received call from patient's daughter, Karen. Karen states patient needs new quad cane at home. Msg sent to Esteban in discharge planning. Daughter also requests a call from the physician with updaed information. Nya sent to Dr. Barrera.
[2020-07-20 11:51] LABS: Glucose Point of Care 113 mg/dL (70-110)
--- NOTE | 2020-07-20 15:18 | P.PN_ITS ---
Subjective Subjective: Interval history: This patient was kept over the weekend because of the dizziness and orthostatic hypotension. Today her symptoms are much improved. She do not have any chest pain. The orthostatic vitals seems to be stable. No fever or chills. No cough. Kidney function seems to be stable. Medications: Reviewed: Yes Medication Review Details: Current Medications Acetaminophen (Acetaminophen 325 Mg Tablet) 650 mg PO Q6H PRN PRN Reason: MILD PAIN Al Hydrox/Mg Hydrox/Simethicone (Zysj-Psr-Clgkljjhn-Ruby 30 Ml Udc) 30 ml PO Q15M PRN PRN Reason: INDIGESTION Albuterol/Ipratropium (Ipratropium-Albuterol 3 Ml Neb) 3 ml INHALATION Q6H PRN PRN Reason: SHORTNESS OF BREATH Aspirin (Aspirin 81 Mg Ec Tablet) 81 mg PO DAILY [facility] Last Admin: 07/20/20 08:38 Dose: 81 mg Documented by: Atorvastatin Calcium (Atorvastatin 40 Mg Tablet) 80 mg PO BEDTIME [facility] Last Admin: 07/19/20 20:31 Dose: 80 mg Documented by: Clopidogrel Bisulfate (Clopidogrel 75 Mg Tablet) 75 mg PO DAILY [facility] Last Admin: 07/20/20 08:38 Dose: 75 mg Documented by: Enoxaparin Sodium (Enoxaparin 40 Mg/0.4 Ml Syringe) 40 mg SUBCUT Q24H [facility] Last Admin: 07/20/20 08:38 Dose: 40 mg Documented by: Furosemide (Furosemide 20 Mg Tablet) 20 mg PO DAILY@0800 [facility] Last Admin: 07/18/20 09:43 Dose: Not Given Documented by: Sodium Chloride (Sodium Chloride 0.9%) 1,000 mls @ 50 mls/hr IV .Q20H [facility] Last Admin: 07/20/20 04:58 Dose: 50 mls/hr Documented by: Lisinopril (Lisinopril 10 Mg Tablet) 10 mg PO DAILY [facility] Last Admin: 07/18/20 09:44 Dose: Not Given Documented by: Magnesium Hydroxide (Magnesium Hydroxide 30 Ml Udc) 30 ml PO DAILY PRN PRN Reason: CONSTIPATION Metoprolol Tartrate (Metoprolol Tartrate 25 Mg Tablet) 12.5 mg PO BID@0900,2100 [facility] Last Admin: 07/18/20 09:58 Dose: 12.5 mg Documented by: Naloxone HCl (Naloxone 0.4 Mg/Ml Sdv) 0.1 mg IVP Q2M PRN PRN Reason: RESPIRATORY RATE < 8/MIN Nitroglycerin (Nitroglycerin 0.4 Mg Sublingual Tablet) 0.4 mg SUBLINGUAL Q5M PRN PRN Reason: CHEST PAIN Ondansetron HCl (Ondansetron 2 Mg/Ml Sdv 2 Ml) 4 mg IVP Q6H PRN PRN Reason: NAUSEA AND VOMITING Vitals/I&O/Wt Last Vital Signs Temp 96.6 F L 07/20/20 15:14 Pulse 104 H 07/20/20 15:14 Resp 20 H 07/20/20 15:14 BP 98/60 07/20/20 15:14 Pulse Ox 96 07/20/20 15:14 07/20/20 07/20/20 07/20/20 06:59 14:59 22:59 Intake Total 480 / 480 Output Total 850 / 2150 Balance -850 / -450 480 / 480 Physical Exam Narrative: EXAM NARRATIVE: GENERAL: The patient is alert and oriented times three. She is hard of hearing. Does not appear to be in any distress. HEENT: Minimal pallor with no icterus or lymphadenopathy. The pupils are symmetrical. Oral cavity: There are no mucous membrane lesions. NECK: Trachea appears to be central. No masses noted. No JVD or thyromegaly appreciated. No carotid bruit. RESPIRATORY: Chest is symmetrical. No intercostals muscle retraction or any accessory muscle activation. There is no chest wall tenderness. Breath sounds are heard bilaterally. No rales or rhonchi heard. No evidence of any consolidation. BREASTS: Deferred. HEART: The PMI could not be palpated. First and second heart sounds are normal. No S3 but there is an S4. Short systolic murmur in the left sternal border. No diastolic murmurs. No pericardial rub. ABDOMEN: No vessel pulsations or distention. No tenderness. No organomegaly appreciated. No abdominal bruit. Bowel sounds are normally heard. : Deferred. RECTAL: Deferred. LYMPHATIC: No lymphadenopathy noted in the neck or groin. EXTREMITIES: No edema or cyanosis. No clubbing. The peripheral pulses are palpable fairly good volume and amplitude. MUSCULOSKELETAL: Patient has features of flexion contracture of the right upper extremity. SKIN: There are no significant scars or skin rash noted. NEUROPSYCHIATRIC: Has some expressive aphasia. Right hemiplegia. Urinary Catheter Management^: Arguelles: Cath Placed During This Visit: yes Reason for Continuing Indwelling Catheter: Accurate Measurement of Urinary Output in Critically Ill Patients Urinary Catheter Date of Insertion: 07/16/20 Urinary Catheter Time of Insertion: 06:24 Data : 07/20/20 03:00 07/21/20 04:27 Other Labs: Laboratory Last Values WBC 5.5 10^3/uL (4.0-10.0) 07/20/20 03:00 RBC 3.97 10^6/uL (4.1-5.3) L 07/20/20 03:00 Hgb 12.1 g/dL (11.5-15.3) 07/20/20 03:00 Hct 39.0 % (37.0-47.0) 07/20/20 03:00 MCV 98.2 fL (81-99) 07/20/20 03:00 MCH 30.5 pg (28.0-34.0) 07/20/20 03:00 MCHC 31.0 g/dL (30.0-36.0) 07/20/20 03:00 RDW 14.5 % (12.1-15.1) 07/20/20 03:00 Plt Count 105 10^3/cmm (130-400) L 07/20/20 03:00 MPV 11.8 fL (7.4-10.4) H 07/20/20 03:00 Neut % (Auto) 74.6 % 07/20/20 03:00 Lymph % (Auto) 11.7 % 07/20/20 03:00 [place] % (Auto) 11.6 % 07/20/20 03:00 Eos % (Auto) 1.3 % 07/20/20 03:00 Baso % (Auto) 0.4 % 07/20/20 03:00 Neut # (Auto) 4.14 10^3/uL (1.8-7.7) 07/20/20 03:00 Lymph # (Auto) 0.7 10^3/uL (0.8-4.8) L 07/20/20 03:00 [place] # (Auto) 0.6 10^3/uL (0.2-0.9) 07/20/20 03:00 Eos # (Auto) 0.1 10^3/uL (0.0-0.8) 07/20/20 03:00 Baso # (Auto) 0.0 10^3/uL (0.0-0.1) 07/20/20 03:00 Nucleated RBC % (auto) 0 % 07/20/20 03:00 Nucleated RBCs # 0.0 /100WBC 07/20/20 03:00 APTT 39.5 SECONDS (23.9-36.7) H D 07/16/20 14:10 D-Dimer 3.99 ug/mIFEU (0-0.59) H 07/16/20 05:45 Sodium 132 mmol/L (136-145) L 07/20/20 03:00 Potassium 3.8 mmol/L (3.5-5.1) 07/20/20 03:00 Chloride 104 mmol/L (98-107) 07/20/20 03:00 Carbon Dioxide 19 mmol/L (22-29) L 07/20/20 03:00 Anion Gap 12.8 (5-19) 07/20/20 03:00 BUN 31 mg/dL (8-23) H 07/20/20 03:00 Creatinine 1.5 mg/dL (0.5-0.9) H 07/20/20 03:00 GFR Calculation Not Reportable 07/20/20 03:00 Glucose 89 mg/dL (65-115) 07/20/20 03:00 POC Glucose 107 mg/dL (70-110) 07/20/20 16:26 Calculated Osmolality 280 mOsm/kg (285-295) L 07/20/20 03:00 Lactic Acid 1.4 mmol/L (0.5-2.2) 07/18/20 12:29 Lactate 0.9 mmol/L (0.5-2.2) 07/20/20 03:00 Calcium 8.0 mg/dL (8.5-10.5) L 07/20/20 03:00 Phosphorus 2.7 mg/dL (2.5-4.5) 07/20/20 03:00 Magnesium 1.7 mg/dL (1.7-2.3) 07/20/20 03:00 Total Bilirubin 0.4 mg/dL (0.15-1.2) 07/20/20 03:00 AST 47 U/L (0-32) H 07/20/20 03:00 ALT 27 U/L (0-33) 07/20/20 03:00 Alkaline Phosphatase 43 IU/L (35-105) 07/20/20 03:00 Troponin T Gen 5 ng/L 2688 ng/L (0-10) H* 07/17/20 11:45 Troponin T Baseline 2748 ng/L (0-10) H* 07/16/20 05:45 Troponin T 120 Minute Cancelled 07/16/20 07:45 Delta Troponin T Cancelled 07/16/20 07:45 NT-Pro-B Natriuret Pep 25750 pg/mL (0-450) H 07/20/20 03:00 Total Protein 5.6 g/dL (6.6-8.7) L 07/20/20 03:00 Albumin 2.7 g/dL (3.5-5.2) L 07/20/20 03:00 Globulin 2.9 g/dL (1.3-4.6) 07/20/20 03:00 Urine Color Yellow (Yellow) 07/19/20 08:50 Urine Appearance Hazy (CLEAR) A 07/19/20 08:50 Urine pH 5 (5-7) 07/19/20 08:50 Ur Specific [place] 1.010 (1.005-1.030) 07/19/20 08:50 Urine Protein Trace (Negative) 07/19/20 08:50 Urine Glucose (UA) Norm (Normal) 07/19/20 08:50 Urine Ketones Negative (Negative) 07/19/20 08:50 Urine Blood 2+ (Negative) H 07/19/20 08:50 Urine Nitrate Negative (Negative) 07/19/20 08:50 Urine Bilirubin Neg (Negative) 07/19/20 08:50 Urine Urobilinogen Norm mg/dL (Negative) 07/19/20 08:50 Ur Leukocyte Esterase 1+ (Negative) H 07/19/20 08:50 Urine RBC 0-4 /hpf (0-2) H 07/19/20 08:50 Urine WBC 5-10 /hpf (0-5) H 07/19/20 08:50 Ur Eosinophil Smear 0 (0-0) 07/19/20 08:50 Ur Squamous Epith Cells 5-10 /hpf (0-5) H 07/19/20 08:50 Amorphous Sediment 2+ /hpf 07/19/20 08:50 Urine Bacteria 2+ /hpf (NONE) H 07/19/20 08:50 Urine Mucus 1+ /hpf 07/19/20 08:50 Urine Eosinophils No eosinophils seen 07/19/20 08:50 Ur Random Sodium 53 mmol/L 07/19/20 08:50 Ur Random Potassium 18 mmol/L 07/19/20 08:50 Ur Random Chloride 40 mmol/L 07/19/20 08:50 Ur Random Urea Nitrogn 765 mg/dL 07/19/20 08:50 Urine Creatinine 86 mg/dL (28-217) 07/19/20 08:50 Micro: Microbiology 07/19/20 08:50 Urine Culture - Preliminary Urine Catheterized Gram Negative Rods A&P Assessment and plan (1) NSTEMI (non-ST elevated myocardial infarction): Patient may be kept on the Plavix, baby aspirin, atorvastatin and sublingual nitroglycerin on a as needed basis. Status: Acute (2) Accelerated hypertension: The blood pressure is in the low normal side, the antihypertensive medicat ions may be held at this point Status: Resolved (3) Dyslipidemia: Continue on the atorvastatin Status: Acute (4) History of cerebrovascular accident (CVA) greater than eight weeks in the past: We may do a carotid duplex admission to further evaluate for any significant carotid artery disease. Details of her stroke is not available at this time. Status: Acute (5) Chronic kidney disease: The patient's kidney function seems to be stable. We will continue on the current measures Status: Inactive Qualifiers: Chronic kidney disease stage: stage 3 (moderate) Chronic kidney disease stage 3 subtype: stage 3a (GFR 45-59) Qualified Code(s): N18.31 - Chronic kidney disease, stage 3a (6) Ischemic cardiomyopathy: Currently there is no evidence of any cardiac decompensation. May continue on the current medications. Status: Acute Additional A&P Information If the patient continues remain stable, may be discharged home from a cardiac standpoint. Need to be seen in the heart care services in 1 week. I may see her in the office in 1 month. 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
[2020-07-20 16:31] LABS: Glucose Point of Care 107 mg/dL (70-110)
--- NOTE | 2020-07-20 16:58 | P.PN_ITS ---
Subjective Subjective: Interval history: orthostatics improving today, less dizy than yesetreda, denies chest pain, dyspnea, palpitations Medications: Reviewed: Yes Medication Review Details: Current Medications Acetaminophen (Acetaminophen 325 Mg Tablet) 650 mg PO Q6H PRN PRN Reason: MILD PAIN Al Hydrox/Mg Hydrox/Simethicone (Bvxm-Kgh-Ckxqdmnsy-Ruby 30 Ml Udc) 30 ml PO Q15M PRN PRN Reason: INDIGESTION Albuterol/Ipratropium (Ipratropium-Albuterol 3 Ml Neb) 3 ml INHALATION Q6H PRN PRN Reason: SHORTNESS OF BREATH Aspirin (Aspirin 81 Mg Ec Tablet) 81 mg PO DAILY [facility] Last Admin: 07/20/20 08:38 Dose: 81 mg Documented by: Atorvastatin Calcium (Atorvastatin 40 Mg Tablet) 80 mg PO BEDTIME [facility] Last Admin: 07/19/20 20:31 Dose: 80 mg Documented by: Clopidogrel Bisulfate (Clopidogrel 75 Mg Tablet) 75 mg PO DAILY [facility] Last Admin: 07/20/20 08:38 Dose: 75 mg Documented by: Enoxaparin Sodium (Enoxaparin 40 Mg/0.4 Ml Syringe) 40 mg SUBCUT Q24H [facility] Last Admin: 07/20/20 08:38 Dose: 40 mg Documented by: Furosemide (Furosemide 20 Mg Tablet) 20 mg PO DAILY@0800 [facility] Last Admin: 07/18/20 09:43 Dose: Not Given Documented by: Sodium Chloride (Sodium Chloride 0.9%) 1,000 mls @ 50 mls/hr IV .Q20H [facility] Last Admin: 07/20/20 04:58 Dose: 50 mls/hr Documented by: Lisinopril (Lisinopril 10 Mg Tablet) 10 mg PO DAILY [facility] Last Admin: 07/18/20 09:44 Dose: Not Given Documented by: Magnesium Hydroxide (Magnesium Hydroxide 30 Ml Udc) 30 ml PO DAILY PRN PRN Reason: CONSTIPATION Metoprolol Tartrate (Metoprolol Tartrate 25 Mg Tablet) 12.5 mg PO BID@0900,2100 [facility] Last Admin: 07/18/20 09:58 Dose: 12.5 mg Documented by: Naloxone HCl (Naloxone 0.4 Mg/Ml Sdv) 0.1 mg IVP Q2M PRN PRN Reason: RESPIRATORY RATE < 8/MIN Nitroglycerin (Nitroglycerin 0.4 Mg Sublingual Tablet) 0.4 mg SUBLINGUAL Q5M PRN PRN Reason: CHEST PAIN Ondansetron HCl (Ondansetron 2 Mg/Ml Sdv 2 Ml) 4 mg IVP Q6H PRN PRN Reason: NAUSEA AND VOMITING Vitals/I&O/Wt Last Vital Signs Temp 96.6 F L 07/20/20 15:14 Pulse 104 H 07/20/20 15:14 Resp 20 H 07/20/20 15:14 BP 98/60 07/20/20 15:14 Pulse Ox 96 07/20/20 15:14 07/20/20 07/20/20 07/20/20 06:59 14:59 22:59 Intake Total 480 / 480 Output Total 850 / 2150 700 / 700 Balance -850 / -450 480 / 480 -700 / -220 Physical Exam Narrative: EXAM NARRATIVE: GEN: Awake, alert and oriented, no acute distress CVS: S1S2 N RS: CTA B/L Abd: Soft, nt/nd , bs+ 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 Urinary Catheter Management^: Arguelles: Cath Placed During This Visit: yes Reason for Continuing Indwelling Catheter: Accurate Measurement of Urinary Output in Critically Ill Patients Urinary Catheter Date of Insertion: 07/16/20 Urinary Catheter Time of Insertion: 06:24 Data : 07/20/20 03:00 07/20/20 03:00 Micro: Microbiology 07/19/20 08:50 Urine Culture - Preliminary Urine Catheterized Gram Negative Rods A&P Assessment and plan (1) NSTEMI (non-ST elevated myocardial infarction): Status: Acute (2) Hypotension: Status: Acute Additional A&P Information Hypotension: -Remains hypotensive relatively but better orthostaics now Stop IVF and monitor closely for sustained impovement -Hold Norvasc, hold metoprolol, hold Lasix -EF is 40%, has diffuse hypokinesis -Received several boluses yesterday -Echocardiogram shows EF of 40% -No infectious source, no leukocytosis, afebrile -Continue to hold all blood pressure medications -CT of the head was negative for watershed stroke, old left basal ganglia and insular infarct -We will try to keep her flat, neurochecks NSTEMI Continues to have intermittent chest pain, none today 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, some moderate disease in other vessels Echocardiogram shows severe hypokinesis of the mid apical septum, anteroseptum, and left ventricular apex, ejection fraction 45% cardiology is on consult, appreciate recommendations Aspirin, statin, Plavix, beta-kole Continue to clinically monitor MINDY: Likely secondary to his hypotension, creatinine 1.6, has received fluid boluses, kiarra lcoutinue to monitor Is on 2 L, concerns for fluid overload, chest x-ray shows no fluid overload BNP is elevated, but likely secondary to BMI, continue to monitor, I feel that likely secondary to JAROD Hypokalemia: Repleted Hypertensive urgency: Resolved, now hypotensive Chronic kidney disease Do not have previous creatinine level to complete her kidney function, current creatinine 1.2 Continue lisinopril Monitor urine output Repeat BMP Previous CVA history with right sided hemiparesis no acute exacerbation she has expressive aphasia, right-sided facial droop right-sided spastic hemiparesis -Needs PT OT -Recommend home health care versus retirement, patient family wants home health care Hyponatremia, serum sodium 133, continue to monitor thrombocytopenia, cell count 105, continue monitor c Cardiac diet Full code DVT prophylaxis Lovenox Attestations Medical Necessity Statement*: Stop IVF, monitor orthostatics, if stable of fluids , planned discharge over the next 24 hrs 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
[2020-07-20 20:08] LABS: Glucose Point of Care 128 mg/dL (70-110)
[2020-07-20] MEDS: atorvastatin 40 mg Tablet 80 MG PO (20:17)
--- NOTE | 2020-07-20 23:55 | PC.NURSE ---
PT RESTING IN BED. PT DENIES PAIN. PT WAS REPOSITIONED. PT HAS CALLED OUT SEVERAL TIMES FOR HELP TO USE BEDPAN. WILL CONTINUE TO MONITOR.
[2020-07-21] VITALS (9 sets, daily range): BP systolic 89–128; BP diastolic 60–90; PULSE 94–119; RESP 18–28; TEMP 36.6–37.2; O2SAT 93–96
[2020-07-21] MEDS: sodium chloride 0.9% 1,000 ML 50 ML IV (00:23)
--- NOTE | 2020-07-21 03:22 | PC.NURSE ---
PT PULLED OUT IV. DR WILLETTAYED TO NOT START ANOTHER IV.
[2020-07-21 05:20] LABS: Alanine Aminotransferase 33 U/L (0-33); Albumin Level 2.7 g/dL (3.5-5.2); Alkaline Phosphatase 43 IU/L (35-105); Anion Gap 12.9 (5-19); Aspartate Amino Transferase 46 U/L (0-32); Blood Urea Nitrogen 29 mg/dL (8-23); Carbon Dioxide 17 mmol/L (22-29); Chloride 105 mmol/L (98-107); Globulin 3.3 g/dL (1.3-4.6); Glucose 98 mg/dL (65-115); Osmolality Calculated 278 mOsm/kg (285-295); Potassium 3.9 mmol/L (3.5-5.1); Sodium 131 mmol/L (136-145); Total Bilirubin 0.3 mg/dL (0.15-1.2)
--- NOTE | 2020-07-21 06:01 | PC.NURSE ---
PT IS RESTING IN BED. PT HAS HAD SEVERAL BED CHANGES. PT DENIES PAIN AT THIS TIME. WILL CONTINUE TO MONITOR.
[2020-07-21 06:25] LABS: Glucose Point of Care 94 mg/dL (70-110)
--- NOTE | 2020-07-21 06:35 | PC.NURSE ---
ACCUCHECKS WERE DONE. I CAN'T COMPLETE INTERVENTION.
[2020-07-21] MEDS: aspirin 81 mg EC Tablet PO (09:07)
[2020-07-21] MEDS: enoxaparin 40 mg/0.4 mL Syringe SUBCUT (09:07)
[2020-07-21] MEDS: clopidogrel 75 mg Tablet PO (09:07)
[2020-07-21] MEDS: metoprolol tartrate 25 mg Tablet 12.5 MG PO (10:18)
--- NOTE | 2020-07-21 11:09 | PM.DCS ---
Discharge Providers Date of Admission: 07/16/20 03:09 Date of Discharge: July 21, 2020 Attending Provider at Admission: Alessia Negrete MD Attending Provider at Discharge: Radha Barrera MD Diagnoses at Discharge Discharge Diagnosis (1) NSTEMI (non-ST elevated myocardial infarction): Status: Acute (2) Accelerated hypertension: Status: Acute (3) Dyslipidemia: Status: Acute (4) History of cerebrovascular accident (CVA) greater than eight weeks in the past: Status: Acute (5) Chronic kidney disease: Status: Inactive Qualifiers: Chronic kidney disease stage: stage 3 (moderate) Chronic kidney disease stage 3 subtype: stage 3a (GFR 45-59) Qualified Code(s): N18.31 - Chronic kidney disease, stage 3a (6) Ischemic cardiomyopathy: Status: Acute Reason for Visit Reason for Visit: no stemi Hospital Course Hospital Course Aaliyah Arredondo is a 80 year old female who has history of left-sided hemiparesis, expressive aphasia, presented to [facility] for chief complaint of chest painon 07/16. EKG showing T wave inversion, biphasic T waves in lateral leads, first troponin 88, second [id number], Covid antigen negative, creatinine 1.3, hypokalemia.Also with hypertensive urgency. She was diagnosed with non-ST elevation myocardial infarction, EKG evidence of completed anterolateral and inferior myocardial infarction with unstable anginal symptoms. She was started on Lovenox, beta-kole, aspirin and iv nitroglycerin. Patient was taken to the cardiac catheterization lab on 07/16 for an urgent cardiac catheterization. She was found to have possible chronically occluded left artery descending artery. She had some moderate disease in the other vessels. Based on the angiogram findings it was opted to treat her medically. She continued to have intermittent chest pain,which is now improving. She will remain on ASA, plavix, b blockers and statin. Echocardiogram shows severe hypokinesis of the mid apical septum, anteroseptum, and leftventricular apex, ejection fraction 45%. Since 07/18 noted to be hypotensive after being on clonidine, amlodipine,lisinopril. Antihypertensives subsequently placed on hold, orthostatics improved with iv hydration. cr peaked at 1.6, now improving. Arguelles removed on 07/20. payient being discharged today in stable condition. home health services arranged, walker ordered for gait stability, follow up with cardiology in one week. Physical Exam Narrative: EXAM NARRATIVE: GEN: Awake, alert and oriented, no acute distress,expressive apahasia + CVS: S1S2 N RS: CTA B/L Abd: Soft, nt/nd , bs+ [employer] ARCHITECT: residual R side weakness unchanged from baseline Urinary Catheter Management^: Arguelles: Cath Placed During This Visit: yes, but has since been removed by the nurse Reason for Continuing Indwelling Catheter: Decision to DC Catheter Urinary Catheter Date of Insertion: 07/16/20 Urinary Catheter Time of Insertion: 06:24 Date Urinary Catheter Removed: 07/20/20 Time Urinary Catheter Discontinued: 18:00 Discharge Data Data Completed and Pending: Completed Studies During Hospitalization Category Date Time Status CT head wo con* 7 0450 Routine Cat Scan 07/19/20 08:21 Completed 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 service Routin e Exams 07/16/20 08:39 Completed XR chest 1V dali ble [id number] Routine Exams 07/18/20 08:04 Completed XR chest 1V dali ble [id number] Routine Exams 07/19/20 07:00 Completed CV echo complete* [id number] Routine Ultrasound 07/16/20 03:30 Completed CV echo complete* [id number] Routine Ultrasound 07/18/20 10:45 Completed Pending at discharge Category Date Time Status Complete Blood Co unt w/Auto AM LABS Lab 07/22/20 04:00 Ordered Osmolality Urine Stat Lab 07/19/20 08:50 Received Labs from last 24 hours 07/21/20 07/21/20 07/20/20 06:23 04:27 20:01 Sodium 131 L Potassium 3.9 Chloride 105 Carbon Dioxide 17 L Anion Gap 12.9 BUN 29 H Creatinine 1.5 H GFR Calculation Not Reportable Glucose 98 POC Glucose 94 128 H Calculated Osmolal ity 278 L Calcium 8.0 L Total Bilirubin 0.3 AST 46 H ALT 33 Alkaline Phosphata se 43 Total Protein 6.0 L Albumin 2.7 L Globulin 3.3 07/20/20 07/20/20 16:26 11:34 Sodium Potassium Chloride Carbon Dioxide Anion Gap BUN Creatinine GFR Calculation Glucose POC Glucose 107 113 H Calculated Osmolal ity Calcium Total Bilirubin AST ALT Alkaline Phosphata se Total Protein Albumin Globulin Vitals: Last Vital Signs Temp 98.7 F 07/21/20 11:06 Pulse 94 07/21/20 11:06 Resp 26 H 07/21/20 11:06 BP 105/77 12/22/20 11:06 Pulse Ox 94 07/21/20 11:06 Discharge Plan Discharge Patient Disposition: Home Health Service Condition: Stable Prescriptions: New atorvastatin 40 mg Tablet 80 mg PO BEDTIME 30 Days Qty: 30 RF: 0 clopidogrel 75 mg Tablet 75 mg PO DAILY 30 Days Qty: 30 RF: 0 aspirin 81 mg Tablet,Delayed Release (Dr/Ec) 81 mg PO DAILY 30 Days Qty: 30 RF: 0 metoprolol succinate 25 mg tablet extended release 24 hr 12.5 mg PO DAILY 30 Days Qty: 30 RF: 0 Continued ascorbic acid (vitamin C) 1,000 mg Tablet 500 mg PO DAILY RF: 0 cyanocobalamin (vitamin B-12) 100 mcg Tablet 100 mcg PO DAILY RF: 0 acetaminophen 500 mg Tablet 500 mg PO Q6H PRN (Reason: Mild Pain (Scale Score 1-4)) RF: 0 fluticasone propionate 50 mcg/actuation [place],Suspension 2 spray INTRANASAL DAILY RF: 0 cholecalciferol (vitamin D3) 1,250 mcg (50,000 unit) Tablet See Rx Instructions .ROUTE .COMPLEX RF: 0 Discontinued lisinopril 20 mg Tablet 20 mg PO BID RF: 0 carvedilol 3.125 mg Tablet 3.125 mg PO BIDWM RF: 0 garlic 1 mg Capsule 1 mg PO DAILY RF: 0 Discharge Orders: Discharge Order (Routine); Ordered 07/21/20 Ordered By: Radha Barrera Other Ambulatory Orders: DME: Cane/ Crutches (Order) Location: None Selected Ordered By: Radha Barrera DME: Walker (Order) Location: None Selected Ordered By: Radha Barrera Referrals: [facility] ([facility]) [Outside] Jeanie Wall MD [Physician] - 1 week Discharge Diet: Cardiac Discharge Activity: As per PT/OT instructions Discharge Attestations Time Spent in Discharge Care*: greater than 30 min Quality Metrics Clinical Quality Measures During this hospital stay, did patient experience: AMI Clinical Trial Participant: No Contraindication to aspirin (AMI): Aspirin given Contraindication to statin: Statin prescribed Contraindication to Fibrinolytics: Drug treatment not indicated Coding Level of Care Code 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
[2020-07-21 11:22] LABS: Glucose Point of Care 115 mg/dL (70-110)
--- NOTE | 2020-07-21 13:39 | DCPLANNER ---
IMM completed on 07/21/2020 @ 0517. Copy of rights given to pt.
--- NOTE | 2020-07-21 14:30 | PC.NURSE ---
patient had an unevenful shift. blood pressure and orthostatics were reported to Dr. Barrera. decision to discharge. discharge instructions were given to patient and . verbalized an understand.
[2020-07-21 16:32] LABS: Osmolality Urine 459 mOsm/kg (50-1200)
== END 2020-07-21 14:30 | disposition home health service (06) | DRG 281 ==
PROVIDERS: Family Medicine; Internal Medicine Cardiovascular Disease; Admitting Provider Internal Medicine; Visit Provider Student in an Organized Health Care Education/Training Program
PROC: B211YZZ Fluoroscopy of Multiple Coronary Arteries using Other Contrast (ICD-10-PCS; principal; 2020-07-16 08:30)
DX: I21.4 Non-ST elevation (NSTEMI) myocardial infarction (principal); I69.954 Hemiplegia and hemiparesis following unspecified cerebrovascular disease affecting left non-dominant side; N17.9 Acute kidney failure, unspecified; E87.1 Hypo-osmolality and hyponatremia; I69.920 Aphasia following unspecified cerebrovascular disease; R26.89 Other abnormalities of gait and mobility; I69.992 Facial weakness following unspecified cerebrovascular disease; M19.90 Unspecified osteoarthritis, unspecified site; I12.9 Hypertensive chronic kidney disease with stage 1 through stage 4 chronic kidney disease, or unspecified chronic kidney disease; N18.31 Chronic kidney disease, stage 3a; I73.9 Peripheral vascular disease, unspecified; Z87.440 Personal history of urinary (tract) infections; E87.6 Hypokalemia; I16.0 Hypertensive urgency; I25.10 Atherosclerotic heart disease of native coronary artery without angina pectoris; E78.5 Hyperlipidemia, unspecified; I25.5 Ischemic cardiomyopathy; D69.6 Thrombocytopenia, unspecified; I95.9 Hypotension, unspecified
CPT/HCPCS: 12345; 36415; 36416; 51702; 70450; 71045; 80048; 80053; 81001; 82436; 82570; 82962; 83605; 83735; 83880; 83935; 84100; 84133; 84300; 84484; 84540; 85025; 85347; 85378; 85730; 85999; 87077; 87086; 87186; 90471; 90686; 90732; 93005; 93306; 93454; 96372; 96375; 97110; 97116; 97161; 97165; 97530; C1769; C1887; C1894; J0360; J1644; J1650; J2250; J3010; J3490; J7030; J7050; Q9967

== ENCOUNTER 2020-07-24 05:04 | Inpatient (IN) | payer MEDICARE, OTHER, SELFPAY ==
[2020-07-24] VITALS (9 sets, daily range): BP systolic 103–135; BP diastolic 68–88; PULSE 89–109; RESP 16–30; TEMP 36.5–39.3; O2SAT 90–98; BMI 37.8; BMI 33.6
--- NOTE | 2020-07-24 05:14 | XRR_ITS ---
PROCEDURE INFORMATION: Exam: XR Chest, 1 View Exam date and time: 07/24/2020 5:22 AM Age: 80 years old Clinical indication: Fever and shortness of breath TECHNIQUE: Imaging protocol: XR of the chest Views: Frontal portable upright view of the chest. COMPARISON: CR XR chest 1V portable [id number] 07/19/2020 8:12 AM FINDINGS: Tubes, catheters and devices: EKG leads are present overlying the chest. Lungs: Moderate pulmonary hypoexpansion. Left lower lobe lateral basilar predominant infiltrate. Pleural space: No pleural effusion. No pneumothorax. Heart/Mediastinum: Mediastinum: Stable. Vasculature: Moderate aortic arch atherosclerotic calcification without ectasia. Bones/joints: Stable. Organs: The gallbladder is likely surgically absent, with metallic clips overlying the gallbladder fossa. XR/XR chest 1V portable [id number] IMPRESSION: 1. Moderate pulmonary hypoexpansion. 2. Left lower lobe infiltrate. Pneumonitis is difficult to exclude. Clinical correlation is recommended. 3. Prior cholecystectomy.
--- NOTE | 2020-07-24 05:15 | ECG_ITS ---
[facility] Test Date: 2020-07-24 Pat Name: Aaliyah Arredondo Department: Room: Gender: Female [place]: : 1940 Requested By: Chris Mendosa Order Number: [id number] Oliva MD: Kyle Barragan M.D. Measurements Intervals [place] Rate: 96 P: 55 WV: 154 QRS: -57 QRSD: 72 T: 76 QT: 316 QTc: 401 Interpretive Statements SINUS RHYTHM WITH MARKED SINUS ARRHYTHMIA LOW QRS VOLTAGE IN PRECORDIAL LEADS [QRS DEFLECTION < 1.0 mV IN CHEST LEADS] POSSIBLE ANTERIOR MYOCARDIAL INFARCTION , OF INDETERMINATE AGE [30 ms Q WAVE IN V3/V4, OR R < 0.2 mV IN V4] INFERIOR MYOCARDIAL INFARCTION , OF INDETERMINATE AGE [40+ ms Q WAVE AND/OR ST/T ABNORMALITY IN II/aVF] Compared to ECG 07/17/2020 07:51:12 No significant changes Electronically Signed On 07-24-2020 17:52:20 GEOTECHNICAL ENGINEERING TECHNICIAN by Kyle Barragan M.D. [id number]
--- NOTE | 2020-07-24 05:16 | W.ED.FEVER ---
Documented by User: Chris Mendosa MD 07/24/20 05:21 HPI - Fever General: Chief Complaint: Fever Stated Complaint: CHEST PAIN AND FEVER Time Seen by Provider: 07/24/20 05:11 Source: patient and EMS Mode of arrival: EMS Limitations: no limitations History of Present Illness: HPI Narrative: 80-year-old female who is here by EMS. Patient states she has been having chest pain throughout the night also with high fevers. Patient's temperature currently is 102.8. Patient was recently admitted here and discharged on the . She had a heart cath here due to her chest pain. Patient had not had any fever still overnight. She states she has had a slight cough. Denies any worsening improving factors. She denies any abdominal pain or dysuria. Associated symptoms: Reports chills and chest pain; Deny abdominal pain, diarrhea, dysuria, headache(s), nausea or vomiting Review of Systems Const: Reports: fever(s), chills and body aches Eyes: Denies: blurry vision or eye discomfort ENMT: Denies: throat pain or dental pain Card: Reports: chest pain Resp: Denies: dyspnea GI: Denies: abdominal pain, nausea, vomiting or diarrhea : Denies: dysuria Musc: Denies: neck pain or back pain Skin/Breast: Denies: rash Neuro: Denies: headache(s) Psych: Denies: depression Sd/Lymph: Denies: easy bruising All/Imm: Denies: urticaria PFSH ED PFSH: Medical History (Updated 07/24/20 @ 08:58 by Dary Cruz MD) Accelerated hypertension Arthritis Chronic kidney disease CVA (cerebral vascular accident) Hypertension Left-sided weakness Peripheral vascular disease UTI (urinary tract infection) Surgical History H/O vaginal hysterectomy S/P cholecystectomy Family History Other Family history non-contributory Social History Smoking and tobacco status: never smoked Alcohol intake: never Housing: House Physical Exam Const: COMMON NORMALS: patient oriented x3 GENERAL APPEARANCE: in distress and ill appearing HENMT: COMMON NORMALS: normocephalic and atraumatic HEAD & SCALP: normocephalic and atraumatic Eye: COMMON NORMALS: Equal, round and reactive pupils present and EOMs intact bilaterally PUPIL: Yes Equal, round and reactive pupils present Neck/C-Spine: COMMON NORMALS: full ROM and supple Chest: COMMONS NORMALS: normal inspection of the chest and normal palpation of entire chest wall Resp: COMMON NORMALS: normal respiratory effort, No retractions, No use of accessory muscles and clear to auscultation bilaterally AUSCULTATION: clear to auscultation bilaterally Cardio: COMMON NORMALS: regular rhythm and No murmurs present (Cardio) RATE: tachycardic RHYTHM: regular rhythm GI: COMMON NORMALS: Normal to inspection, nondistended, normoactive bowel sounds present, Soft to palpation, non-tender and no masses PALPATION: Yes Soft to palpation Extremity: COMMON NORMALS: normal to inspection and full ROM Neuro: COMMON NORMALS: patient oriented x3, moves all extremities and no focal motor deficits Psych: COMMON NORMALS: mental status grossly normal, Normal thought process present and cooperative THOUGHT PROCESS: Normal thought process present Skin: COMMON NORMALS: no rashes or lesions noted and no wounds GENERAL SKIN EXAM: no rashes or lesions noted Course Vital Signs: Vital signs: Vital Signs Temperature 98.2 F 07/24/20 09:50 Pulse Rate 89 07/24/20 12:35 Respiratory Rate 20 H 07/24/20 12:35 Blood Pressure 109/78 07/24/20 12:35 Pulse Oximetry 95 07/24/20 12:35 MDM - Fever Lab Data: Labs: Lab Results 07/24/20 07/24/20 07/24/20 Range/Units 06:05 06:05 06:05 WBC 4.5 (4.0-10.0) 10^3/ uL RBC 3.80 L (4.1-5.3) 10^6/u L Hgb 11.6 (11.5-15.3) g/dL Hct 37.9 (37.0-47.0) % MCV 99.7 H (81-99) fL MCH 30.5 (28.0-34.0) pg MCHC 30.6 (30.0-36.0) g/dL RDW 14.6 (12.1-15.1) % Plt Count 140 (130-400) 10^3/c mm MPV 12.0 H (7.4-10.4) fL Neut % (Auto) 84.6 % Lymph % (Auto) 6.6 % [place] % (Auto) 7.5 % Eos % (Auto) 0.2 % Baso % (Auto) 0.2 % Neut # (Auto) 3.84 (1.8-7.7) 10^3/u L Lymph # (Auto) 0.3 L (0.8-4.8) 10^3/u L [place] # (Auto) 0.3 (0.2-0.9) 10^3/u L Eos # (Auto) 0.0 (0.0-0.8) 10^3/u L Baso # (Auto) 0.0 (0.0-0.1) 10^3/u L Nucleated RBC % (a uto) 0 % Nucleated RBCs # 0.0 /100WBC PT 13.90 (12.1-14.9) SECO NDS INR 1.04 (0.8-1.2) Sodium 132 L (136-145) mmol/L Potassium 4.2 (3.5-5.1) mmol/L Chloride 103 (98-107) mmol/L Carbon Dioxide 19 L (22-29) mmol/L Anion Gap 14.2 (5-19) BUN 31 H (8-23) mg/dL Creatinine 1.8 H (0.5-0.9) mg/dL GFR Calculation Not Reportable Glucose 86 (65-115) mg/dL Calculated Osmolal ity 280 L (285-295) mOsm/k g Lactate (0.5-2.2) mmol/L Calcium 8.1 L (8.5-10.5) mg/dL Total Bilirubin 0.4 (0.15-1.2) mg/dL AST 61 H (0-32) U/L ALT 43 H (0-33) U/L Alkaline Phosphata se 44 (35-105) IU/L Troponin T Baselin e (0-10) ng/L Total Protein 5.9 L (6.6-8.7) g/dL Albumin 2.9 L (3.5-5.2) g/dL Globulin 3.0 (1.3-4.6) g/dL Urine Color (Yellow) Urine Appearance (CLEAR) Urine pH (5-7) Ur Specific Gravit y (1.005-1.030) Urine Protein (Negative) Urine Glucose (UA) (Normal) Urine Ketones (Negative) Urine Blood (Negative) Urine Nitrate (Negative) Urine Bilirubin (Negative) Urine Urobilinogen (Negative) mg/dL Ur Leukocyte Ila ase (Negative) Urine RBC (0-2) /hpf Urine WBC (0-5) /hpf Ur Squamous Epith Cells (0-5) /hpf Amorphous Sediment Urine Bacteria (NONE) /hpf Influenza Type A A g (Negative) Influenza Type B A g (Negative) SARS-CoV-2 Ag (Rap id) (Negative) 07/24/20 07/24/20 07/24/20 Range/Units 06:05 06:05 06:15 WBC (4.0-10.0) 10^3/ uL RBC (4.1-5.3) 10^6/u L Hgb (11.5-15.3) g/dL Hct (37.0-47.0) % MCV (81-99) fL MCH (28.0-34.0) pg MCHC (30.0-36.0) g/dL RDW (12.1-15.1) % Plt Count (130-400) 10^3/c mm MPV (7.4-10.4) fL Neut % (Auto) % Lymph % (Auto) % [place] % (Auto) % Eos % (Auto) % Baso % (Auto) % Neut # (Auto) (1.8-7.7) 10^3/u L Lymph # (Auto) (0.8-4.8) 10^3/u L [place] # (Auto) (0.2-0.9) 10^3/u L Eos # (Auto) (0.0-0.8) 10^3/u L Baso # (Auto) (0.0-0.1) 10^3/u L Nucleated RBC % (a uto) % Nucleated RBCs # /100WBC PT (12.1-14.9) SECO NDS INR (0.8-1.2) Sodium (136-145) mmol/L Potassium (3.5-5.1) mmol/L Chloride (98-107) mmol/L Carbon Dioxide (22-29) mmol/L Anion Gap (5-19) BUN (8-23) mg/dL Creatinine (0.5-0.9) mg/dL GFR Calculation Glucose (65-115) mg/dL Calculated Osmolal ity (285-295) mOsm/k g Lactate 0.9 (0.5-2.2) mmol/L Calcium (8.5-10.5) mg/dL Total Bilirubin (0.15-1.2) mg/dL AST (0-32) U/L ALT (0-33) U/L Alkaline Phosphata se (35-105) IU/L Troponin T Baselin e 3178 H* (0-10) ng/L Total Protein (6.6-8.7) g/dL Albumin (3.5-5.2) g/dL Globulin (1.3-4.6) g/dL Urine Color Straw (Yellow) Urine Appearance Hazy A (CLEAR) Urine pH 5 (5-7) Ur Specific Gravit y 1.015 (1.005-1.030) Urine Protein 1+ H (Negative) Urine Glucose (UA) Norm (Normal) Urine Ketones Negative (Negative) Urine Blood 2+ H (Negative) Urine Nitrate Positive H (Negative) Urine Bilirubin Neg (Negative) Urine Urobilinogen Norm (Negative) mg/dL Ur Leukocyte Ila ase Negative (Negative) Urine RBC 5-10 H (0-2) /hpf Urine WBC 25-40 H (0-5) /hpf Ur Squamous Epith Cells Rare (0-5) /hpf Amorphous Sediment Not Reportable Urine Bacteria 3+ H (NONE) /hpf Influenza Type A A g (Negative) Influenza Type B A g (Negative) SARS-CoV-2 Ag (Rap id) (Negative) 07/24/20 07/24/20 Range/Units 06:23 06:23 WBC (4.0-10.0) 10^3/ uL RBC (4.1-5.3) 10^6/u L Hgb (11.5-15.3) g/dL Hct (37.0-47.0) % MCV (81-99) fL MCH (28.0-34.0) pg MCHC (30.0-36.0) g/dL RDW (12.1-15.1) % Plt Count (130-400) 10^3/c mm MPV (7.4-10.4) fL Neut % (Auto) % Lymph % (Auto) % [place] % (Auto) % Eos % (Auto) % Baso % (Auto) % Neut # (Auto) (1.8-7.7) 10^3/u L Lymph # (Auto) (0.8-4.8) 10^3/u L [place] # (Auto) (0.2-0.9) 10^3/u L Eos # (Auto) (0.0-0.8) 10^3/u L Baso # (Auto) (0.0-0.1) 10^3/u L Nucleated RBC % (a uto) % Nucleated RBCs # /100WBC PT (12.1-14.9) SECO NDS INR (0.8-1.2) Sodium (136-145) mmol/L Potassium (3.5-5.1) mmol/L Chloride (98-107) mmol/L Carbon Dioxide (22-29) mmol/L Anion Gap (5-19) BUN (8-23) mg/dL Creatinine (0.5-0.9) mg/dL GFR Calculation Glucose (65-115) mg/dL Calculated Osmolal ity (285-295) mOsm/k g Lactate (0.5-2.2) mmol/L Calcium (8.5-10.5) mg/dL Total Bilirubin (0.15-1.2) mg/dL AST (0-32) U/L ALT (0-33) U/L Alkaline Phosphata se (35-105) IU/L Troponin T Baselin e (0-10) ng/L Total Protein (6.6-8.7) g/dL Albumin (3.5-5.2) g/dL Globulin (1.3-4.6) g/dL Urine Color (Yellow) Urine Appearance (CLEAR) Urine pH (5-7) Ur Specific Gravit y (1.005-1.030) Urine Protein (Negative) Urine Glucose (UA) (Normal) Urine Ketones (Negative) Urine Blood (Negative) Urine Nitrate (Negative) Urine Bilirubin (Negative) Urine Urobilinogen (Negative) mg/dL Ur Leukocyte Ila ase (Negative) Urine RBC (0-2) /hpf Urine WBC (0-5) /hpf Ur Squamous Epith Cells (0-5) /hpf Amorphous Sediment Urine Bacteria (NONE) /hpf Influenza Type A A g Negative (Negative) Influenza Type B A g Negative (Negative) SARS-CoV-2 Ag (Rap id) Positive H (Negative) Discharge Plan Discharge Patient Disposition: Admitted As Inpatient Clinical Impression: COVID-19 virus infection, Pneumonia due to 2019-nCoV, Acute UTI, Dyspnea due to COVID-19 Condition: Stable Discharge Diet: Cardiac Coding Level of Care Code ED Senior Oracle Pl Sql Developer for Chg Fwd Exam Comprehensive Documented by User: Dary Cruz MD 07/24/20 13:07 HPI - Fever General: Chief Complaint: Fever Stated Complaint: CHEST PAIN AND FEVER Time Seen by Provider: 07/24/20 05:11 [facility] ED PFSH: Medical History (Updated 07/24/20 @ 08:58 by Dary Cruz MD) Accelerated hypertension Arthritis Chronic kidney disease CVA (cerebral vascular accident) Hypertension Left-sided weakness Peripheral vascular disease UTI (urinary tract infection) Surgical History H/O vaginal hysterectomy S/P cholecystectomy Family History Other Family history non-contributory Social History Smoking and tobacco status: never smoked Alcohol intake: never Housing: House Physical Exam Const: COMMON NORMALS: alert EXAM LIMITATIONS: altered mental status and other limitations (Expressive aphasia, hemiparesis) GENERAL APPEARANCE: ill appearing and frail appearing NUTRITIONAL APPEARANCE: overweight ORIENTATION/CONSCIOUSNESS: Yes awake and Yes oriented to person HENMT: COMMON NORMALS: normocephalic and atraumatic HEAD & SCALP: normal to inspection, normocephalic and atraumatic; no Acrocyanosis present FACE & SINUS: normal facial exam; no Acrocyanosis present Neck/C-Spine: COMMON NORMALS: no meningeal signs Resp: EFFORT & INSPECTION: Yes tachypneic, Yes labored, No grunting, No stridor, Yes Actively coughing and No uses accessory muscles AUSCULTATION: rales bilateral and rhonchi throughout Cardio: COMMON NORMALS: regular rhythm JUGULAR VENOUS DISTENTION: no JVD RATE: tachycardic RHYTHM: regular rhythm HEART SOUNDS: Murmur heart sound present systolic GI: COMMON NORMALS: Soft to palpation and non-tender INSPECTION: No abdominal wall ecchymosis, No Abdominal wall edema and No Anasarca PALPATION: Yes Soft to palpation Extremity: GENERAL: No cyanosis and Yes edema Neuro: SENSORIUM/ORIENTATION: Yes alert and Yes oriented to person MENINGEAL SIGNS: Yes no meningeal signs CRANIAL NERVES: Yes CN normal except as noted SPEECH: abnormal speech and expressive aphasia GAIT: Yes Unable to assess gait MOTOR EXAM: Abnormal muscle tone present flaccid: right upper extremity and right lower extremity and Motor abnormalites present PUPIL EXAM: Normal pupillary reactivity/response: right and left Skin: COMMON NORMALS: no rashes or lesions noted and no wounds GENERAL SKIN EXAM: no rashes or lesions noted Course Vital Signs: Vital signs: Vital Signs Temperature 98.2 F 07/24/20 09:50 Pulse Rate 89 07/24/20 12:35 Respiratory Rate 20 H 07/24/20 12:35 Blood Pressure 109/78 07/24/20 12:35 Pulse Oximetry 95 07/24/20 12:35 MDM - Fever MDM Narrative: Medical decision making narrative: I received signout from Dr. Mendosa at 0600. This is an 80-year-old female presenting by EMS with complaints of chest pain, cough, shortness of breath and fever over the past 1 to 2 days.. She suffered a STEMI and underwent PCI here on 07/16/2020. No stents were placed. EF 45%. 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 There is no history of underlying lung disease and she does not require home oxygen. At arrival she was ill-appearing, and in mild respiratory distress. O2 saturation 90% on 2 L nasal cannula. Tachycardic but normotensive. Chest x-ray shows left lower lobe infiltrate. Covid swab positive. Urinalysis suggests acute urinary tract infection. D-dimer, troponin, BNP all markedly elevated: But she has just recently suffered an [place], and worsening kidney function. She does not appear acutely fluid overloaded on physical exam. Acute on chronic renal insufficiency?decided against CTA to rule out acute PE as I have low clinical suspicion. EKG; sinus rhythm, does not show any new elevation or depression compared to EKG from last week. ST segment and T wave abnormalities have improved. Treated with IV fluid, Rocephin, Zithromax, supplemental oxygen at 2 L. Plan to discuss admission with hospitalist. Spoke with with Dr. Pierre, on-call hospitalist, he accepts the admission. He requests we do a noncontrast CT chest to evaluate the extent of airspace disease. Medical Records: Attestation: I reviewed the patient's medical records. Lab Data: Labs: Lab Results 07/24/20 07/24/20 07/24/20 Range/Units 06:05 06:05 06:05 WBC 4.5 (4.0-10.0) 10^3/ uL RBC 3.80 L (4.1-5.3) 10^6/u L Hgb 11.6 (11.5-15.3) g/dL Hct 37.9 (37.0-47.0) % MCV 99.7 H (81-99) fL MCH 30.5 (28.0-34.0) pg MCHC 30.6 (30.0-36.0) g/dL RDW 14.6 (12.1-15.1) % Plt Count 140 (130-400) 10^3/c mm MPV 12.0 H (7.4-10.4) fL Neut % (Auto) 84.6 % Lymph % (Auto) 6.6 % [place] % (Auto) 7.5 % Eos % (Auto) 0.2 % Baso % (Auto) 0.2 % Neut # (Auto) 3.84 (1.8-7.7) 10^3/u L Lymph # (Auto) 0.3 L (0.8-4.8) 10^3/u L [place] # (Auto) 0.3 (0.2-0.9) 10^3/u L Eos # (Auto) 0.0 (0.0-0.8) 10^3/u L Baso # (Auto) 0.0 (0.0-0.1) 10^3/u L Nucleated RBC % (a uto) 0 % Nucleated RBCs # 0.0 /100WBC PT 13.90 (12.1-14.9) SECO NDS INR 1.04 (0.8-1.2) Sodium 132 L (136-145) mmol/L Potassium 4.2 (3.5-5.1) mmol/L Chloride 103 (98-107) mmol/L Carbon Dioxide 19 L (22-29) mmol/L Anion Gap 14.2 (5-19) BUN 31 H (8-23) mg/dL Creatinine 1.8 H (0.5-0.9) mg/dL GFR Calculation Not Reportable Glucose 86 (65-115) mg/dL Calculated Osmolal ity 280 L (285-295) mOsm/k g Lactate (0.5-2.2) mmol/L Calcium 8.1 L (8.5-10.5) mg/dL Total Bilirubin 0.4 (0.15-1.2) mg/dL AST 61 H (0-32) U/L ALT 43 H (0-33) U/L Alkaline Phosphata se 44 (35-105) IU/L Troponin T Baselin e (0-10) ng/L Total Protein 5.9 L (6.6-8.7) g/dL Albumin 2.9 L (3.5-5.2) g/dL Globulin 3.0 (1.3-4.6) g/dL Urine Color (Yellow) Urine Appearance (CLEAR) Urine pH (5-7) Ur Specific Gravit y (1.005-1.030) Urine Protein (Negative) Urine Glucose (UA) (Normal) Urine Ketones (Negative) Urine Blood (Negative) Urine Nitrate (Negative) Urine Bilirubin (Negative) Urine Urobilinogen (Negative) mg/dL Ur Leukocyte Ila ase (Negative) Urine RBC (0-2) /hpf Urine WBC (0-5) /hpf Ur Squamous Epith Cells (0-5) /hpf Amorphous Sediment Urine Bacteria (NONE) /hpf Influenza Type A A g (Negative) Influenza Type B A g (Negative) SARS-CoV-2 Ag (Rap id) (Negative) 12/07/24/20 07/24/20 Range/Units 06:05 06:05 06:15 WBC (4.0-10.0) 10^3/ uL RBC (4.1-5.3) 10^6/u L Hgb (11.5-15.3) g/dL Hct (37.0-47.0) % MCV (81-99) fL MCH (28.0-34.0) pg MCHC (30.0-36.0) g/dL RDW (12.1-15.1) % Plt Count (130-400) 10^3/c mm MPV (7.4-10.4) fL Neut % (Auto) % Lymph % (Auto) % [place] % (Auto) % Eos % (Auto) % Baso % (Auto) % Neut # (Auto) (1.8-7.7) 10^3/u L Lymph # (Auto) (0.8-4.8) 10^3/u L [place] # (Auto) (0.2-0.9) 10^3/u L Eos # (Auto) (0.0-0.8) 10^3/u L Baso # (Auto) (0.0-0.1) 10^3/u L Nucleated RBC % (a uto) % Nucleated RBCs # /100WBC PT (12.1-14.9) SECO NDS INR (0.8-1.2) Sodium (136-145) mmol/L Potassium (3.5-5.1) mmol/L Chloride (98-107) mmol/L Carbon Dioxide (22-29) mmol/L Anion Gap (5-19) BUN (8-23) mg/dL Creatinine (0.5-0.9) mg/dL GFR Calculation Glucose (65-115) mg/dL Calculated Osmolal ity (285-295) mOsm/k g Lactate 0.9 (0.5-2.2) mmol/L Calcium (8.5-10.5) mg/dL Total Bilirubin (0.15-1.2) mg/dL AST (0-32) U/L ALT (0-33) U/L Alkaline Phosphata se (35-105) IU/L Troponin T Baselin e 3178 H* (0-10) ng/L Total Protein (6.6-8.7) g/dL Albumin (3.5-5.2) g/dL Globulin (1.3-4.6) g/dL Urine Color Straw (Yellow) Urine Appearance Hazy A (CLEAR) Urine pH 5 (5-7) Ur Specific Gravit y 1.015 (1.005-1.030) Urine Protein 1+ H (Negative) Urine Glucose (UA) Norm (Normal) Urine Ketones Negative (Negative) Urine Blood 2+ H (Negative) Urine Nitrate Positive H (Negative) Urine Bilirubin Neg (Negative) Urine Urobilinogen Norm (Negative) mg/dL Ur Leukocyte Ila ase Negative (Negative) Urine RBC 5-10 H (0-2) /hpf Urine WBC 25-40 H (0-5) /hpf Ur Squamous Epith Cells Rare (0-5) /hpf Amorphous Sediment Not Reportable Urine Bacteria 3+ H (NONE) /hpf Influenza Type A A g (Negative) Influenza Type B A g (Negative) SARS-CoV-2 Ag (Rap id) (Negative) 07/24/20 07/24/20 Range/Units 06:23 06:23 WBC (4.0-10.0) 10^3/ uL RBC (4.1-5.3) 10^6/u L Hgb (11.5-15.3) g/dL Hct (37.0-47.0) % MCV (81-99) fL MCH (28.0-34.0) pg MCHC (30.0-36.0) g/dL RDW (12.1-15.1) % Plt Count (130-400) 10^3/c mm MPV (7.4-10.4) fL Neut % (Auto) % Lymph % (Auto) % [place] % (Auto) % Eos % (Auto) % Baso % (Auto) % Neut # (Auto) (1.8-7.7) 10^3/u L Lymph # (Auto) (0.8-4.8) 10^3/u L [place] # (Auto) (0.2-0.9) 10^3/u L Eos # (Auto) (0.0-0.8) 10^3/u L Baso # (Auto) (0.0-0.1) 10^3/u L Nucleated RBC % (a uto) % Nucleated RBCs # /100WBC PT (12.1-14.9) SECO NDS INR (0.8-1.2) Sodium (136-145) mmol/L Potassium (3.5-5.1) mmol/L Chloride (98-107) mmol/L Carbon Dioxide (22-29) mmol/L Anion Gap (5-19) BUN (8-23) mg/dL Creatinine (0.5-0.9) mg/dL GFR Calculation Glucose (65-115) mg/dL Calculated Osmolal ity (285-295) mOsm/k g Lactate (0.5-2.2) mmol/L Calcium (8.5-10.5) mg/dL Total Bilirubin (0.15-1.2) mg/dL AST (0-32) U/L ALT (0-33) U/L Alkaline Phosphata se (35-105) IU/L Troponin T Baselin e (0-10) ng/L Total Protein (6.6-8.7) g/dL Albumin (3.5-5.2) g/dL Globulin (1.3-4.6) g/dL Urine Color (Yellow) Urine Appearance (CLEAR) Urine pH (5-7) Ur Specific Gravit y (1.005-1.030) Urine Protein (Negative) Urine Glucose (UA) (Normal) Urine Ketones (Negative) Urine Blood (Negative) Urine Nitrate (Negative) Urine Bilirubin (Negative) Urine Urobilinogen (Negative) mg/dL Ur Leukocyte Ila ase (Negative) Urine RBC (0-2) /hpf Urine WBC (0-5) /hpf Ur Squamous Epith Cells (0-5) /hpf Amorphous Sediment Urine Bacteria (NONE) /hpf Influenza Type A A g Negative (Negative) Influenza Type B A g Negative (Negative) SARS-CoV-2 Ag (Rap id) Positive H (Negative) Discharge Plan Discharge Patient Disposition: Admitted As Inpatient Clinical Impression: COVID-19 virus infection, Pneumonia due to 2019-nCoV, Acute UTI, Dyspnea due to COVID-19 Condition: Stable Discharge Diet: Cardiac Coding Level of Care Code ED Senior Oracle Pl Sql Developer for Chg Fwd Exam Comprehensive
[2020-07-24] MEDS: sodium chloride 0.9% 1,000 ML 999 ML IV (05:39)
[2020-07-24 06:22] LABS: Basophils % 0.2 %; Eosinophils % 0.2 %; Hematocrit 37.9 % (37.0-47.0); Hemoglobin 11.6 g/dL (11.5-15.3); Lymphocytes # 0.3 10^3/uL (0.8-4.8); Lymphocytes % 6.6 %; Mean Corpuscular HGB Conc 30.6 g/dL (30.0-36.0); Mean Corpuscular Hemoglobin 30.5 pg (28.0-34.0); Mean Corpuscular Volume 99.7 fL (81-99); Monocytes # 0.3 10^3/uL (0.2-0.9); Monocytes % 7.5 %; Neutrophils # 3.84 10^3/uL (1.8-7.7); Neutrophils % 84.6 %; Nucleated Red Blood Cells % 0 %; Platelet Count 140 10^3/cmm (130-400); Red Cell Distribution Width 14.6 % (12.1-15.1); White Blood Count 4.5 10^3/uL (4.0-10.0)
[2020-07-24 06:31] LABS: INR 1.04 (0.8-1.2)
[2020-07-24 06:40] LABS: Lactate (Lactic Acid level) 0.9 mmol/L (0.5-2.2)
[2020-07-24 06:41] LABS: Alanine Aminotransferase 43 U/L (0-33); Albumin Level 2.9 g/dL (3.5-5.2); Alkaline Phosphatase 44 IU/L (35-105); Anion Gap 14.2 (5-19); Aspartate Amino Transferase 61 U/L (0-32); Blood Urea Nitrogen 31 mg/dL (8-23); Calcium 8.1 mg/dL (8.5-10.5); Carbon Dioxide 19 mmol/L (22-29); Chloride 103 mmol/L (98-107); Glucose 86 mg/dL (65-115); Osmolality Calculated 280 mOsm/kg (285-295); Potassium 4.2 mmol/L (3.5-5.1); Sodium 132 mmol/L (136-145); Total Bilirubin 0.4 mg/dL (0.15-1.2); Total Protein 5.9 g/dL (6.6-8.7)
[2020-07-24 06:44] LABS: Troponin(5th) Baseline 3178 ng/L (0-10)
[2020-07-24 06:47] LABS: Add Urine Microscopic? YES; Bilirubin Urine Neg (Negative); Blood Urine 2+ (Negative); Glucose Urine UA Norm (Normal); Ketones Urine Negative (Negative); Leukocyte Esterase Urine Negative (Negative); Nitrate Urine Positive (Negative); Protein Urine 1+ (Negative); Specific Gravity, Urine 1.015 (1.005-1.030); Urine Appearance Hazy (CLEAR); Urine Color Straw (Yellow); Urobilinogen Urine Norm (Negative); pH Urine 5 (5-7)
[2020-07-24 06:48] LABS: Add Urine Culture? No; Bacteria Urine 3+ /hpf; Squamous Epithelial Cell Urine RARE /hpf (0-5); WBC Urine 25-40 /hpf (0-5)
[2020-07-24 07:02] LABS: Influenza A by IFA Negative (Negative); Influenza B by IFA Negative (Negative)
[2020-07-24 07:03] LABS: SARS Covid-2 Antigen Positive (Negative)
--- NOTE | 2020-07-24 07:15 | ECG_ITS ---
[facility] Test Date: 2020-07-24 Pat Name: Aaliyah Arredondo Department: Room: Gender: Female Editorial Assistant: : 1940 Requested By: Chris Mendosa Order Number: [id number] Oliva MD: Kyle Barragan M.D. Measurements Intervals [place] Rate: 99 P: 59 MO: 152 QRS: -48 QRSD: 74 T: 89 QT: 318 QTc: 409 Interpretive Statements SINUS RHYTHM LOW QRS VOLTAGE IN PRECORDIAL LEADS [QRS DEFLECTION < 1.0 mV IN CHEST LEADS] POSSIBLE ANTERIOR MYOCARDIAL INFARCTION , OF INDETERMINATE AGE [30 ms Q WAVE IN V3/V4, OR R < 0.2 mV IN V4] INFERIOR MYOCARDIAL INFARCTION , OF INDETERMINATE AGE [40+ ms Q WAVE AND/OR ST/T ABNORMALITY IN II/aVF] Compared to ECG 07/24/2020 06:04:33 Sinus arrhythmia no longer present Myocardial infarct finding still present Electronically Signed On 07-26-2020 11:07:59 CARVING MACHINE OPERATOR by Kyle Barragan M.D. [id number]
[2020-07-24] MEDS: cefTRIAXone 1,000 MG in sodium chloride 0.9% (plus) 50 ML 100 MG IV (07:44)
[2020-07-24] MEDS: azithromycin 500 MG in sodium chloride 0.9% 250 ML 250 MG IV (08:00)
--- NOTE | 2020-07-24 08:51 | CTR_ITS ---
PROCEDURE INFORMATION: Exam: CT Chest Without Contrast; Diagnostic Exam date and time: 07/24/2020 8:57 AM Age: 80 years old Clinical indication: Shortness of breath; Additional info: Hypoxia, SOB TECHNIQUE: Imaging protocol: Diagnostic computed tomography of the chest without contrast. Radiation optimization: All CT scans at this facility use at least one of these dose optimization techniques: automated exposure control; mA and/or kV adjustment per patient size (includes targeted exams where dose is matched to clinical indication); or iterative reconstruction. COMPARISON: CR (CHEST, ) 07/24/2020 5:33 AM RADIATION DOSE METRICS: Total DLP (mGy-cm): 789.73 FINDINGS: Thyroid: The partially imaged bilateral thyroid lobes are unremarkable. Lungs: Patchy peripheral ground-glass opacities, subsegmental atelectasis and architectural distortion predominantly in the periphery of the mid-lower lung zones. Left lower lobe calcified pulmonary parenchymal granulomas. Pleural space: No pneumothorax. No pleural effusion. Heart: Moderate-large pericardial effusion. Mitral annular calcification is present. Atherosclerotic coronary calcifications are noted involving the LAD and LCx coronary arteries. Cardiac right ventricular moderator band intramyocardial adipose. Mediastinal space: Left hilar granulomatous mitesh calcifications are present. A small sliding hiatal hernia is present above the level of the diaphragm. Aorta: Moderate aortic arch, branch, and descending thoracic aortic atherosclerotic calcification without ectasia. Moderate aortic valvular calcification is present. Moderate aortic atherosclerotic calcification with infrarenal abdominal aortic ectasia to 2.9 cm. Lymph nodes: No enlarged lymph nodes. Gallbladder and bile ducts: The gallbladder is surgically absent, with metallic clips in the gallbladder fossa. Spleen: The spleen demonstrates several small calcifications consistent with healed granulomatous disease. Kidneys and ureters: Partially imaged nonspecific 2.6 cm left renal anterior hypodensity. Moderate bilateral renal cortical atrophy. Bones/joints: Thoracic spine vertebral body marginal osteophytes are noted at multiple levels. Soft tissues: Unremarkable. Other findings: Streak artifact is present from the patient's right arm at the side. CT/CT chest wo con [id number] IMPRESSION: 1. Unenhanced imaging is of low utility in the diagnosis of pulmonary emboli. If clinically indicated, IV contrast enhanced imaging may add additional useful information, if not contraindicated. 2. Patchy peripheral ground-glass opacities, subsegmental atelectasis and architectural distortion bilaterally. Pneumonitis, including viral pneumonitis (subacute), is difficult to exclude. Clinical correlation is recommended. 3. Moderate-large pericardial effusion. 4. Coronary atherosclerosis. 5. Small hiatal hernia. 6. Partially imaged nonspecific left renal lesion. Nonemergent sonography or computed tomography (with contrast enhancement if not contraindicated) recommended. 7. Prior cholecystectomy. COMMENTS: Consistent with the [employer]'s Incidental Findings Committee white paper (J Am Shantal Radiol 2018): Any incidental renal lesion less than 1 cm or classified as too small to characterize, or any incidental cystic renal lesion characterized as simple-appearing, is likely benign. No follow-up imaging is recommended for these lesions per consensus recommendations based on imaging criteria. Radiation Dose CTDIVOL = (mGy): DLP = 789.73 (mGy-cm)
[2020-07-24] MEDS: dexamethasone 4 mg/mL INJ 6 MG IVP (08:54)
--- NOTE | 2020-07-24 09:11 | PC.NURSE ---
patient has started to have bouts of diarrhea
--- NOTE | 2020-07-24 10:13 | PC.NURSE ---
patient returned from ct patient tolerated well
--- NOTE | 2020-07-24 10:14 | PC.NURSE ---
2 liter removed at 1000
--- NOTE | 2020-07-24 10:45 | PM.HP ---
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 She had some moderate disease in the other vessels. Based on the angiogram findings it was opted to treat her medically. Echocardiogram at that time showed severe hypokinesis of the mid apical septum, anteroseptum, and leftventricular apex, ejection fraction 45%.Rapid COVID Antigen was negative at that time. She came in today with c/o lt sided chest pain throughout the night also with high fevers.She was also complaining of productive cough as well as SOB , fatigue,nausea,generalized body ache. Upon arrival in the ER she was worked up for above complain. Xray chest : Left lower lobe infiltrate. Pneumonitis is difficult to exclude. C.T Chest without Contrast : 1. Unenhanced imaging is of low utility in the diagnosis of pulmonary emboli. If clinically indicated, IV contrast enhanced imaging may add additional useful information, if not contraindicated. 2. Patchy peripheral ground-glass opacities, subsegmental atelectasis and architectural distortion bilaterally. Pneumonitis, including viral pneumonitis (subacute), is difficult to exclude. 3. Moderate-large pericardial effusion. 4. Coronary atherosclerosis. EKG : SINUS RHYTHM , LOW QRS VOLTAGE IN PRECORDIAL LEADS. 2Decho: LV systolic function is moderate to severely reduced with EF of 30 to 35% with above-mentioned regional wall motion abnormalities. Grade 1 diastolic dysfunction is present. There is small to medium sized pericardial effusion noted. No echocardiographic features of tamponade are seen. No significant mitral inflow velocity respirophasic variation is seen. Pericardial effusion was present on prior echo from 07/18/2020 however because of limited quality echocardiogram, accurate comparison cannot be made. Compared to prior echo from 07/18/2020, LV systolic function has decreased slightly to 30 to 35%. Pericardial effusion might have increased in size however because of poor visualization accurate assessment cannot be made. No echo features of pericardial tamponade. Review of Systems Card: Denies: palpitations, edema, swelling of feet/ankles or orthopnea Resp: Denies: wheezing GI: Denies: abdominal pain, diarrhea or constipation : Denies: flank pain Musc: Denies: back pain, extremity pain or extremity swelling Neuro: Denies: headache(s) Medications/Allergies Home Medications Medication Instructions Recorded Confirmed Last Taken Type acetaminophen 500 mg PO Q6H PRN 07/16/20 07/24/20 Unknown History ascorbic acid (vitamin C) 500 mg PO DAILY 07/16/20 07/24/20 07/15/20 08:00 History cholecalciferol (vitamin D3) See Rx Instructions .ROUTE .COMPLEX 07/16/20 07/24/20 07/12/20 08:00 History cyanocobalamin (vitamin B-12) 100 mcg PO DAILY 07/16/20 07/24/20 07/15/20 08:00 History fluticasone propionate 2 spray INTRANASAL DAILY 07/16/20 07/24/20 07/15/20 08:00 History aspirin 81 mg PO DAILY 30 Days #30 tab 07/21/20 07/24/20 Unknown Rx atorvastatin 80 mg PO BEDTIME 30 Days #30 tab 07/21/20 07/24/20 Unknown Rx clopidogrel 75 mg PO DAILY 30 Days #30 tab 07/21/20 07/24/20 Unknown Rx metoprolol succinate 12.5 mg PO DAILY 30 Days #30 tab 07/21/20 07/24/20 Unknown Rx Allergies Allergy/AdvReac Type Severity Reaction Status Date / Time Penicillins Allergy ALGY-Anaphy Verified 07/16/20 04:42 laxis PFSH Acute PFSH: Medical History (Updated 07/24/20 @ 21:07 by Bud Pierre MD) Accelerated hypertension Arthritis Chronic kidney disease CVA (cerebral vascular accident) Hypertension Left-sided weakness Peripheral vascular disease UTI (urinary tract infection) Surgical History H/O vaginal hysterectomy S/P cholecystectomy Family History Other Family history non-contributory Social History Smoking and tobacco status: never smoked Alcohol intake: never Housing: House Vitals/I&O/Wt Last Vital Signs Temp 98.2 F 07/24/20 09:50 Pulse 90 07/24/20 10:38 Resp 20 H 12/25/20 10:38 BP 112/87 07/24/20 10:38 Pulse Ox 90 07/24/20 10:38 Weight last 48 hrs Weight 90.718 kg Physical Exam Const: COMMON NORMALS: patient oriented x3 HENMT: COMMON NORMALS: normocephalic and atraumatic HEAD & SCALP: normocephalic and atraumatic EXTERNAL EAR: Yes external ears normal Eye: COMMON NORMALS: no scleral icterus GENERAL EYE: appearance normal, both eyes and all related structures Chest: COMMONS NORMALS: normal inspection of the chest CHEST: Yes Symmetrical chest wall rise Resp: COMMON NORMALS: normal respiratory effort and No retractions EFFORT & INSPECTION: Yes symmetric chest movement OTHER: Diminished airr entry B/L Cardio: COMMON NORMALS: regular rate, regular rhythm, S1 normal heart sound present, S2 normal heart sound present, No gallops present (Cardio), No murmurs present (Cardio), No rub (Cardio) and Peripheral pulses 2+ throughout RATE: regular rate RHYTHM: regular rhythm HEART SOUNDS: S1 normal heart sound present and S2 normal heart sound present PERIPHERAL PULSES: Peripheral pulses 2+ throughout GI: COMMON NORMALS: Normal to inspection, nondistended, normoactive bowel sounds present, Soft to palpation, non-tender, No hepatosplenomegaly present and no masses AUSCULTATION: Yes normoactive bowel sounds PALPATION: Yes Soft to palpation and Yes No hepatosplenomegaly present RECTAL EXAM: deferred Extremity: COMMON NORMALS: no clubbing, cyanosis or edema and no pedal edema Neuro: COMMON NORMALS: patient oriented x3 Data : 07/24/20 06:05 07/24/20 06:05 Micro: Microbiology 07/24/20 06:30 Blood Culture - Preliminary Blood SPECIMEN COLLECTED 07/24/20 06:05 Blood Culture - Preliminary Blood SPECIMEN COLLECTED A&P Assessment and plan (1) Pneumonia due to 2019-nCoV: COVID PROTOCOL cef and Azithromycin Continue Eliquis 2.5 mg q12 h daily Status: Acute (2) Elevated troponin: Trend troponin Serial EKG Status: Acute (3) Acute UTI: Ceftriaxone 1 gm q24h daily Status: Acute (4) Ischemic cardiomyopathy: Status: Acute (5) Heart failure: Currently compensated Continue lasix 40 mg po daily Status: Acute (6) History of cerebrovascular accident (CVA) greater than eight weeks in the past: Status: Acute Additional A&P Information Code Status :Full code DVT PPX: On Eliquis 2.5 mg q12 h daily Disposition:Home Attestations Medical Necessity Statement*: Patient needs to be in hospital for the management of COVID PNA. 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
[2020-07-24] MEDS: remdesivir 200 MG in sodium chloride 0.9% (100 ml) 100 ML 100 MG IV (10:56)
--- NOTE | 2020-07-24 11:15 | ECG_ITS ---
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 Measurements Intervals [place] Rate: 89 P: 51 SD: 147 QRS: -44 QRSD: 78 T: 90 QT: 340 QTc: 415 Interpretive Statements SINUS RHYTHM LOW QRS VOLTAGE IN PRECORDIAL LEADS [QRS DEFLECTION < 1.0 mV IN CHEST LEADS] ANTERIOR MYOCARDIAL INFARCTION , OF INDETERMINATE AGE [40+ ms Q WAVE AND/OR ST/T ABNORMALITY IN V3/V4] INFERIOR MYOCARDIAL INFARCTION , OF INDETERMINATE AGE [40+ ms Q WAVE AND/OR ST/T ABNORMALITY IN II/aVF] Compared to ECG 07/24/2020 07:56:29 No significant changes Electronically Signed On 07-26-2020 11:07:51 WEIGHER PACKING by Kyle Barragan M.D. [id number]
--- NOTE | 2020-07-24 11:22 | USCV_ITS ---
ArnulfoAaliyah Age: 80 Gender: F : 1940 Exam Date: 07/24/2020 11:52 Ordering Phys: Bud Pierre MD Technologist: Mindi Stokes [place] [facility] [place]: PERICARDIAL EFFUSION BP: 117 / 75 HR: 89 Rhythm: Sinus Technical Quality: Adequate MEASUREMENTS (Male / Female) Normal Values 2D ECHO LV Diastolic Diameter PLAX 3.9 cm 4.2 - 5.9 / 3.9 - 5.3 cm LV Systolic Diameter PLAX 3.3 cm LV Chamber Size 4.0 cm IVS Diastolic Thickness 1.2 cm 0.6 - 1.0 / 0.6 - 0.9 cm IVS Systolic Thickness 1.0 cm LVPW Diastolic Thickness 1.3 cm 0.6 - 1.0 / 0.6 - 0.9 cm LVPW Systolic Thickness 1.3 cm RV Chamber Size 3.3 cm LVOT Diameter 2.0 cm LV Ejection Fraction 2D Teich 33.3 % LV Ejection Fraction MOD 2C 29.9 % LV Ejection Fraction 2C AL 28.7 % LA Diameter 2.8 cm LA Width 2.9 cm LA Height 4.2 cm RA Width 2.3 cm RA Height 4.0 cm Aorta at Sinotubular Diameter 3.5 cm M-MODE LV Diastolic Diameter MM 4.8 cm 4.2 - 5.9 / 3.9 - 5.3 cm LV Systolic Diameter MM 2.9 cm LV Ejection Fraction MM Teich 70.4 % IVS Diastolic Thickness MM 1.1 cm 0.6 - 1.0 / 0.6 - 0.9 cm IVS Systolic Thickness MM 1.3 cm LVPW Diastolic Thickness MM 0.9 cm 0.6 - 1.0 / 0.6 - 0.9 cm LVPW Systolic Thickness MM 1.4 cm RV Diastolic Diameter MM 1.3 cm Aortic Annulus Diameter 3.6 cm LA Ao Ratio MM 1.1 MV E Point Septal Separation 0.8 cm DOPPLER AV Peak Velocity 139.0 cm/s LVOT Peak Velocity 101.0 cm/s AV Area Cont Eq vti 3.3 cm squared AV Area Cont Eq pk 2.4 cm squared MV Area PHT 2.9 cm squared Mitral E to A Ratio 0.7 MV E' Velocity 43.5 cm/s Mitral E to MV E' Ratio 6.4 Mitral E to LV E' Lateral Ratio 6.8 Mitral E to LV E' Septal Ratio 6.0 TR Peak Velocity 122.3 cm/s TR Peak Gradient 6.0 mmHg TR Mean Velocity 81.8 cm/s TR Mean Gradient 3.2 mmHg TR Velocity Time Integral 28.0 cm TV Peak E Velocity 75.0 cm/s PV Peak Velocity 103.0 cm/s RV Acceleration Time 0.2 s RV Ejection Time 0.3 s RV AcT/ET 0.5 FINDINGS Left Ventricle Normal left ventricular size. LV systolic function is moderate to severely reduced with EF of 30 to 35%. Akinesis of apical wall and anteroseptal leiva is noted. There is mild global hypokinesis. Grade 1 diastolic dysfunction is present. Right Ventricle The right ventricle is normal in size and function. Right Atrium The right atrium is normal in size. There is systolic invagination of right atrium however no diastolic collapse is noted. Left Atrium The left atrium is normal in size. Mitral Valve Mitral valve is thickened. No evidence of significant mitral regurgitation or stenosis is seen Aortic Valve Structurally normal aortic valve without significant sclerosis or stenosis. There is no aortic regurgitation. Tricuspid Valve Structurally normal tricuspid valve without significant stenosis or regurgitation. Pulmonary artery systolic pressure is normal. Pulmonic Valve Structurally normal pulmonic valve without significant stenosis. There is no pulmonic regurgitation. Pericardium There is small to medium sized pericardial effusion noted. No echocardiographic features of tamponade are seen. No significant mitral inflow velocity respirophasic variation is seen. Aorta Normal ascending aorta dimension. CONCLUSIONS This is technically limited study with poor ultrasonic windows. LV systolic function is moderate to severely reduced with EF of 30 to 35% with above-mentioned regional wall motion abnormalities. Grade 1 diastolic dysfunction is present. There is small to medium sized pericardial effusion noted. No echocardiographic features of tamponade are seen. No significant mitral inflow velocity respirophasic variation is seen. Pericardial effusion was present on prior echo from 07/18/2020 however because of limited quality echocardiogram, accurate comparison cannot be made. Compared to prior echo from 07/18/2020, LV systolic function has decreased slightly to 30 to 35%. Pericardial effusion might have increased in size however because of poor visualization accurate assessment cannot be made. No echo features of pericardial tamponade. Kyle Barragan MD (Electronically Signed) Final Date: 24 July 2020 12:55 S
--- NOTE | 2020-07-24 12:10 | PC.NURSE ---
US IN ROOM FOR ECHO
[2020-07-24] MEDS: aspirin 81 mg EC Tablet PO (19:31)
[2020-07-24] MEDS: guaiFENesin-dextromethorphan UDC 10 mL 5 ML PO (19:31)
[2020-07-24] MEDS: metoprolol succinate ER (24 HR) 25 mg Tablet 12.5 MG PO (19:31)
[2020-07-24] MEDS: apixaban 5 mg Tablet 2.5 MG PO (22:31)
[2020-07-24] MEDS: atorvastatin 40 mg Tablet PO (22:32)
--- NOTE | 2020-07-24 22:54 | ECG_ITS ---
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 Measurements Intervals [place] Rate: 85 P: 50 IA: 163 QRS: -42 QRSD: 81 T: 105 QT: 356 QTc: 425 Interpretive Statements SINUS RHYTHM LOW QRS VOLTAGE IN PRECORDIAL LEADS [QRS DEFLECTION < 1.0 mV IN CHEST LEADS] INFERIOR MYOCARDIAL INFARCTION [40+ ms Q WAVE AND/OR ST/T ABNORMALITY IN II/aVF], OF INDETERMINATE AGE ANTEROLATERAL MYOCARDIAL INFARCTION [40+ ms Q WAVE IN I/aVL/V3-V6], OF INDETERMINATE AGE Compared to ECG 07/24/2020 11:21:41 No significant changes Electronically Signed On 07-25-2020 16:58:38 CHROMIUM PLATER by Kyle Barragan M.D. [id number]
[2020-07-24 23:42] LABS: Troponin(5th) Baseline 1535 ng/L (0-10)
[2020-07-25] VITALS (8 sets, daily range): BP systolic 114–126; BP diastolic 73–86; PULSE 82–94; RESP 12–24; TEMP 36.3–36.9; O2SAT 92–95; BMI 33.6
[2020-07-25 03:02] LABS: Basophils % 0.3 %; Hematocrit 35.4 % (37.0-47.0); Hemoglobin 11.2 g/dL (11.5-15.3); Lymphocytes # 0.3 10^3/uL (0.8-4.8); Lymphocytes % 8.2 %; Mean Corpuscular HGB Conc 31.6 g/dL (30.0-36.0); Mean Corpuscular Hemoglobin 30.9 pg (28.0-34.0); Mean Corpuscular Volume 97.5 fL (81-99); Mean Platelet Volume 11.7 fL (7.4-10.4); Monocytes # 0.2 10^3/uL (0.2-0.9); Monocytes % 6.1 %; Neutrophils % 84.8 %; Nucleated Red Blood Cells % 0 %; Platelet Count 137 10^3/cmm (130-400); Red Blood Count 3.63 10^6/uL (4.1-5.3); Red Cell Distribution Width 14.5 % (12.1-15.1); White Blood Count 3.4 10^3/uL (4.0-10.0)
[2020-07-25 03:14] LABS: INR 1.26 (0.8-1.2)
[2020-07-25 03:15] LABS: Partial Thromboplastin Time 65.5 SECONDS (23.9-36.7)
[2020-07-25 03:21] LABS: C Reactive Protein 132.5 mg/L (0.0-4.9)
[2020-07-25 03:22] LABS: Alanine Aminotransferase 54 U/L (0-33); Albumin Level 2.5 g/dL (3.5-5.2); Alkaline Phosphatase 45 IU/L (35-105); Anion Gap 13.7 (5-19); Aspartate Amino Transferase 70 U/L (0-32); Blood Urea Nitrogen 39 mg/dL (8-23); Calcium 8.3 mg/dL (8.5-10.5); Carbon Dioxide 16 mmol/L (22-29); Chloride 105 mmol/L (98-107); Globulin 3.5 g/dL (1.3-4.6); Glucose 250 mg/dL (65-115); Osmolality Calculated 290 mOsm/kg (285-295); Potassium 3.7 mmol/L (3.5-5.1); Sodium 131 mmol/L (136-145); Total Bilirubin 0.3 mg/dL (0.15-1.2)
[2020-07-25 03:25] LABS: D Dimer 5.99 ug/mIFEU (0-0.59)
[2020-07-25 03:31] LABS: NT Pro B Type Natriuretic Pept 22264 pg/mL (0-450); Procalcitonin 0.21 ng/mL (0-0.5)
[2020-07-25 03:49] LABS: Troponin 5 2HR 1377 ng/L (0-10)
[2020-07-25 03:50] LABS: Troponin 5 2HR Delta -158 ABS# (0-10)
[2020-07-25 04:03] LABS: Erythrocyte Sedimentation Rate 56 mm/hr (0-15)
[2020-07-25 04:14] LABS: Slide Review Slide Review Perform
[2020-07-25] MEDS: ascorbic acid 500 mg Tablet PO (08:30)
[2020-07-25] MEDS: apixaban 5 mg Tablet 2.5 MG PO ×2 (08:30→17:31)
[2020-07-25] MEDS: guaiFENesin-dextromethorphan UDC 10 mL 5 ML PO ×2 (08:30→17:31)
[2020-07-25] MEDS: aspirin 81 mg EC Tablet PO (08:31)
[2020-07-25] MEDS: isosorbide mononitrate ER 30 mg Tablet PO (08:31)
[2020-07-25] MEDS: pantoprazole DR 40 mg Tablet PO (08:31)
[2020-07-25] MEDS: metoprolol succinate ER (24 HR) 25 mg Tablet 12.5 MG PO (08:31)
[2020-07-25] MEDS: remdesivir 100 MG in sodium chloride 0.9% (100 ml) 100 ML IV (08:37)
[2020-07-25 09:44] LABS: Troponin 5 6HR Delta -278 ng/L (0-12)
[2020-07-25 09:45] LABS: Troponin 5 6HR 1257 ng/L (0-10)
[2020-07-25] MEDS: cefTRIAXone 1,000 MG in sodium chloride 0.9% (plus) 50 ML 100 MG IV (10:15)
[2020-07-25] MEDS: dexamethasone 4 mg/mL INJ 6 MG IVP (11:10)
[2020-07-25] MEDS: vancomycin 1,250 MG/250 ML PIGGYBACK 250 MG IV (11:10)
[2020-07-25] MEDS: azithromycin 500 MG in sodium chloride 0.9% 250 ML 250 MG IV (12:33)
--- NOTE | 2020-07-25 14:18 | PM.PN ---
Subjective Subjective: Interval history: is doing fine.She is saturating well on 2ls,Has remained, afebrile. Labs have been reviewed. Medications: Reviewed: Yes Vitals/I&O/Wt Last Vital Signs Temp 98.5 F 07/25/20 12:00 Pulse 82 07/25/20 12:00 Resp 17 07/25/20 12:00 BP 117/77 07/25/20 12:00 Pulse Ox 94 07/25/20 12:00 07/24/20 07/25/20 07/25/20 22:59 06:59 14:59 Intake Total 150 / 150 700 / 700 Balance 150 / 150 700 / 700 Weight last 48 hrs Weight 80.739 kg Weight 80.739 kg Weight 90.718 kg Physical Exam Const: COMMON NORMALS: patient oriented x3 HENMT: COMMON NORMALS: normocephalic and atraumatic HEAD & SCALP: normocephalic and atraumatic Chest: CHEST: Yes Symmetrical chest wall rise Resp: COMMON NORMALS: normal respiratory effort and clear to auscultation bilaterally EFFORT & INSPECTION: Yes symmetric chest movement AUSCULTATION: clear to auscultation bilaterally Cardio: COMMON NORMALS: regular rate, regular rhythm, S1 normal heart sound present and S2 normal heart sound present RATE: regular rate RHYTHM: regular rhythm HEART SOUNDS: S1 normal heart sound present and S2 normal heart sound present GI: COMMON NORMALS: Normal to inspection, nondistended, normoactive bowel sounds present, Soft to palpation, non-tender, No hepatosplenomegaly present and no masses AUSCULTATION: Yes normoactive bowel sounds PALPATION: Yes Soft to palpation and Yes No hepatosplenomegaly present RECTAL EXAM: deferred Neuro: COMMON NORMALS: patient oriented x3 Data : 07/25/20 02:36 07/25/20 02:36 Micro: Microbiology 07/24/20 06:30 Blood Culture - Preliminary Blood Gram positive cocci 07/24/20 06:05 Blood Culture - Preliminary Blood Gram positive cocci 07/24/20 06:15 Urine Culture - Preliminary Urine Catheterized Gram Negative Rods A&P Assessment and plan (1) Sepsis: Sepsis 2/2 to GPC Bactremia as well as GNR. Vancomycin started on ( 07/25) Continue Cef and Azithromycin for now Follow Cultures 2D Echo : technically limited study with poor ultrasonic windows. LV systolic function is moderate to severely reduced with EF of 30 to 35% with above-mentioned regional wall motion abnormalities. Grade 1 diastolic dysfunction is present. Status: Acute (2) Pneumonia due to 2019-nCoV: COVID PROTOCOL cef and Azithromycin Continue Eliquis 2.5 mg q12 h daily Status: Acute (3) Elevated troponin: Trend troponin Serial EKG Status: Acute (4) Pericardial effusion: Without Tamponad physiology.( small to medium sized pericardial effusion noted.No echocardiographic features of tamponade are seen) Will continue to monitor Status: Acute (5) Acute UTI: Ceftriaxone 1 gm q24h daily Status: Acute (6) Ischemic cardiomyopathy: Status: Acute (7) Heart failure: Currently compensated Continue lasix 40 mg po daily Status: Acute (8) History of cerebrovascular accident (CVA) greater than eight weeks in the past: Status: Acute Additional A&P Information Code Status :Full code DVT PPX: On Eliquis 2.5 mg q12 h daily Disposition:Home Attestations Medical Necessity Statement*: Patient needs to be in hospital for the management of sepsis and COVID PNA Coding 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
--- NOTE | 2020-07-25 19:35 | PC.NURSE ---
Daughter I talked with daughter and updated her regarding her mom. Pt seemed more alert this evening.
[2020-07-25] MEDS: atorvastatin 40 mg Tablet PO (22:01)
[2020-07-26] VITALS (8 sets, daily range): BP systolic 114–132; BP diastolic 74–85; PULSE 77–92; RESP 16–20; TEMP 36.3–36.4; O2SAT 91–97
[2020-07-26 06:36] LABS: Basophils % 0.2 %; Hematocrit 34.9 % (37.0-47.0); Lymphocytes # 0.5 10^3/uL (0.8-4.8); Lymphocytes % 3.9 %; Mean Corpuscular HGB Conc 31.5 g/dL (30.0-36.0); Mean Corpuscular Hemoglobin 30.7 pg (28.0-34.0); Mean Corpuscular Volume 97.5 fL (81-99); Mean Platelet Volume 11.8 fL (7.4-10.4); Monocytes # 0.5 10^3/uL (0.2-0.9); Monocytes % 4.1 %; Neutrophils # 11.19 10^3/uL (1.8-7.7); Neutrophils % 90.8 %; Nucleated Red Blood Cells % 0 %; Platelet Count 174 10^3/cmm (130-400); Red Blood Count 3.58 10^6/uL (4.1-5.3); Red Cell Distribution Width 14.5 % (12.1-15.1); White Blood Count 12.3 10^3/uL (4.0-10.0)
[2020-07-26 07:20] LABS: D Dimer 3.77 ug/mIFEU (0-0.59)
[2020-07-26 07:26] LABS: Alanine Aminotransferase 50 U/L (0-33); Albumin Level 2.6 g/dL (3.5-5.2); Alkaline Phosphatase 49 IU/L (35-105); Anion Gap 15.1 (5-19); Aspartate Amino Transferase 51 U/L (0-32); Blood Urea Nitrogen 46 mg/dL (8-23); C Reactive Protein 65.6 mg/L (0.0-4.9); Calcium 8.3 mg/dL (8.5-10.5); Carbon Dioxide 14 mmol/L (22-29); Chloride 109 mmol/L (98-107); Globulin 3.2 g/dL (1.3-4.6); Glucose 206 mg/dL (65-115); Osmolality Calculated 296 mOsm/kg (285-295); Potassium 4.1 mmol/L (3.5-5.1); Sodium 134 mmol/L (136-145); Total Bilirubin 0.2 mg/dL (0.15-1.2); Total Protein 5.8 g/dL (6.6-8.7)
[2020-07-26 08:16] LABS: Erythrocyte Sedimentation Rate 37 mm/hr (0-15)
[2020-07-26] MEDS: guaiFENesin-dextromethorphan UDC 10 mL 5 ML PO ×2 (10:11→18:45)
[2020-07-26] MEDS: remdesivir 100 MG in sodium chloride 0.9% (100 ml) 100 ML IV (10:11)
[2020-07-26] MEDS: metoprolol succinate ER (24 HR) 25 mg Tablet 12.5 MG PO (10:12)
[2020-07-26] MEDS: pantoprazole DR 40 mg Tablet PO (10:12)
[2020-07-26] MEDS: aspirin 81 mg EC Tablet PO (10:12)
[2020-07-26] MEDS: ascorbic acid 500 mg Tablet PO (10:12)
[2020-07-26] MEDS: apixaban 5 mg Tablet 2.5 MG PO ×2 (10:12→18:45)
[2020-07-26] MEDS: isosorbide mononitrate ER 30 mg Tablet PO (10:13)
[2020-07-26] MEDS: cefTRIAXone 1,000 MG in sodium chloride 0.9% (plus) 50 ML 100 MG IV (12:26)
[2020-07-26] MEDS: dexamethasone 4 mg/mL INJ 6 MG IVP (12:27)
--- NOTE | 2020-07-26 13:23 | P.PN_ITS ---
Subjective Subjective: Interval history: Ms. Arredondo is alert and awake, has been doing well.Currently requiring 2Ls oxygen via nc to maintain saturation above 90 %. Other Vitals have remained stable. She is tolerating diet well. Medications: Reviewed: Yes Vitals/I&O/Wt Last Vital Signs Temp 97.3 F L 07/26/20 11:31 Pulse 81 07/26/20 11:31 Resp 17 07/26/20 11:31 BP 114/74 07/26/20 11:31 Pulse Ox 94 07/26/20 11:31 07/25/20 07/26/20 07/26/20 22:59 06:59 14:59 Intake Total 120 / 820 Output Total 0 / 0 Balance 120 / 820 Weight last 48 hrs Weight 88.133 kg Weight 80.739 kg Weight 80.739 kg Physical Exam Narrative: EXAM NARRATIVE: Alert and awake HENMT: COMMON NORMALS: normocephalic and atraumatic HEAD & SCALP: normocephalic and atraumatic Chest: CHEST: Yes Symmetrical chest wall rise Resp: COMMON NORMALS: normal respiratory effort EFFORT & INSPECTION: Yes symmetric chest movement OTHER: Diminished at Bases Cardio: COMMON NORMALS: regular rate, regular rhythm, S1 normal heart sound present, S2 normal heart sound present, No gallops present (Cardio), No murmurs present (Cardio), No rub (Cardio) and Peripheral pulses 2+ throughout RATE: regular rate RHYTHM: regular rhythm HEART SOUNDS: S1 normal heart sound present and S2 normal heart sound present PERIPHERAL PULSES: Peripheral pulses 2+ throughout GI: COMMON NORMALS: Normal to inspection, nondistended, normoactive bowel soun ds present, Soft to palpation, non-tender, No hepatosplenomegaly present and no masses AUSCULTATION: Yes normoactive bowel sounds PALPATION: Yes Soft to palpation and Yes No hepatosplenomegaly present RECTAL EXAM: deferred Extremity: COMMON NORMALS: no clubbing, cyanosis or edema and no pedal edema Data : 07/26/20 06:20 07/26/20 06:20 Micro: Microbiology 07/24/20 06:30 Blood Culture - Preliminary Blood Coagulase negativ staphylococc 07/24/20 06:05 Blood Culture - Preliminary Blood Coagulase negativ staphylococc 07/24/20 06:15 Urine Culture - Final Urine Catheterized Citrobacter farmeri A&P Assessment and plan (1) Sepsis: Sepsis 2/2 COVID PNA / UTI Vancomycin ( 07/25-07/26 ) Ceftriaxone (07-24-07/26 ) Cefepime ( 07/26- TD ) Azithromycin ( 07/24-TD ) Blood Cultures : Coagulase negative staph likely contaminant Urine Culture : Citrobacter Farmeri : Sensitive to Cefepime and augmentin Procal : 0.21 2D Echo : technically limited study with poor ultrasonic windows. LV systolic function is moderate to severely reduced with EF of 30 to 35% with above-mentioned regional wall motion abnormalities. Grade 1 diastolic dysfunction is present. Continue Cefepime for now. Will Dc her on Po augmentin to complete 10 days course Status: Acute (2) Pneumonia due to 2019-nCoV: COVID PROTOCOL cef and Azithromycin Continue Eliquis 2.5 mg q12 h daily Status: Acute (3) Elevated troponin: Trend troponin Serial EKG Status: Acute (4) Pericardial effusion: Without Tamponad physiology.( small to medium sized pericardial effusion noted.No echocardiographic features of tamponade are seen) Will continue to monitor Status: Acute (5) Acute UTI: Continue Cefepime for now. Will Dc her on Po augmentin to complete 10 days course Status: Acute (6) Ischemic cardiomyopathy: Status: Acute (7) Heart failure: Currently compensated Continue lasix 40 mg po daily Status: Acute (8) History of cerebrovascular accident (CVA) greater than eight weeks in the past: Status: Acute Additional A&P Information Code Status :Full code DVT PPX: On Eliquis 2.5 mg q12 h daily Disposition:Home Attestations Medical Necessity Statement*: Patient needs to be in hospital for the management of COVID PNA as well as sepsis Coding Level of Care Code Acute Clinical Psychologist Private Practice for [facility] Fwd Diagnoses Sepsis A41.9 Pneumonia due to 2019-nCoV U07.1; J12.89 Elevated troponin R77.8 Pericardial effusion I31.3 Acute UTI N39.0 Ischemic cardiomyopathy I25.5 Heart failure I50.9 History of cerebrovascular accident (CVA) greater than eight weeks in the past Z86.73
[2020-07-26] MEDS: azithromycin 500 MG in sodium chloride 0.9% 250 ML 250 MG IV (14:03)
--- NOTE | 2020-07-26 16:06 | PC.NURSE ---
returned call to daughter Karen Arredondo
[2020-07-26] MEDS: atorvastatin 40 mg Tablet PO (23:10)
[2020-07-26] MEDS: cefepime 1,000 MG in sodium chloride 0.9% (plus) 50 ML 100 MG IV (23:10)
[2020-07-27] VITALS (9 sets, daily range): BP systolic 110–134; BP diastolic 70–86; PULSE 76–115; RESP 15–18; TEMP 35.6–37.1; O2SAT 90–97
[2020-07-27 06:37] LABS: Basophils % 0.2 %; Hematocrit 37.5 % (37.0-47.0); Hemoglobin 11.2 g/dL (11.5-15.3); Lymphocytes # 0.4 10^3/uL (0.8-4.8); Lymphocytes % 3.6 %; Mean Corpuscular HGB Conc 29.9 g/dL (30.0-36.0); Mean Corpuscular Hemoglobin 30.6 pg (28.0-34.0); Mean Corpuscular Volume 102.5 fL (81-99); Mean Platelet Volume 12.1 fL (7.4-10.4); Monocytes # 0.6 10^3/uL (0.2-0.9); Monocytes % 4.9 %; Neutrophils # 10.96 10^3/uL (1.8-7.7); Neutrophils % 90.1 %; Nucleated Red Blood Cells % 0 %; Platelet Count 164 10^3/cmm (130-400); Red Blood Count 3.66 10^6/uL (4.1-5.3); Red Cell Distribution Width 14.7 % (12.1-15.1); White Blood Count 12.2 10^3/uL (4.0-10.0)
[2020-07-27 06:58] LABS: D Dimer 2.54 ug/mIFEU (0-0.59)
[2020-07-27 07:06] LABS: Alanine Aminotransferase 47 U/L (0-33); Albumin Level 2.3 g/dL (3.5-5.2); Alkaline Phosphatase 46 IU/L (35-105); Aspartate Amino Transferase 48 U/L (0-32); Blood Urea Nitrogen 48 mg/dL (8-23); C Reactive Protein 41.6 mg/L (0.0-4.9); Calcium 8.4 mg/dL (8.5-10.5); Carbon Dioxide 12 mmol/L (22-29); Chloride 108 mmol/L (98-107); Globulin 3.5 g/dL (1.3-4.6); Glucose 218 mg/dL (65-115); Osmolality Calculated 293 mOsm/kg (285-295); Sodium 132 mmol/L (136-145); Total Bilirubin 0.3 mg/dL (0.15-1.2); Total Protein 5.8 g/dL (6.6-8.7)
[2020-07-27 07:07] LABS: Anion Gap 16.4 (5-19); Potassium 4.4 mmol/L (3.5-5.1)
[2020-07-27] MEDS: ascorbic acid 500 mg Tablet PO (08:28)
[2020-07-27] MEDS: metoprolol succinate ER (24 HR) 25 mg Tablet 12.5 MG PO (08:28)
[2020-07-27] MEDS: guaiFENesin-dextromethorphan UDC 10 mL 5 ML PO ×2 (08:28→17:28)
[2020-07-27] MEDS: remdesivir 100 MG in sodium chloride 0.9% (100 ml) 100 ML IV (08:28)
[2020-07-27] MEDS: isosorbide mononitrate ER 30 mg Tablet PO (08:29)
[2020-07-27] MEDS: pantoprazole DR 40 mg Tablet PO (08:29)
[2020-07-27] MEDS: aspirin 81 mg EC Tablet PO (08:29)
[2020-07-27] MEDS: apixaban 5 mg Tablet 2.5 MG PO ×2 (08:29→17:27)
[2020-07-27 10:08] LABS: Erythrocyte Sedimentation Rate 28 mm/hr (0-15)
[2020-07-27] MEDS: dexamethasone 4 mg/mL INJ 6 MG IVP (11:33)
[2020-07-27] MEDS: azithromycin 500 MG in sodium chloride 0.9% 250 ML 250 MG IV (13:18)
--- NOTE | 2020-07-27 15:11 | PC.NURSE ---
pt up to chair until after lunch. pt currently resting in bed.
--- NOTE | 2020-07-27 15:25 | PM.PN ---
Subjective Subjective: Interval history: is doing fine. Has remained afebrile , maintaining saturation above 90 % on 2ls oxygen vai CT. Other vitals and labs have been reviewed. Medications: Reviewed: Yes Vitals/I&O/Wt Last Vital Signs Temp 96.1 F L 07/27/20 14:43 Pulse 88 07/27/20 14:43 Resp 16 07/27/20 14:43 BP 110/72 07/27/20 14:43 Pulse Ox 92 07/27/20 14:43 07/27/20 07/27/20 07/27/20 06:59 14:59 22:59 Intake Total 720 / 720 Balance 720 / 720 Weight last 48 hrs Weight 88.133 kg Physical Exam Narrative: EXAM NARRATIVE: Alert and awake HENMT: COMMON NORMALS: normocephalic and atraumatic HEAD & SCALP: normocephalic and atraumatic Chest: CHEST: Yes Symmetrical chest wall rise Resp: COMMON NORMALS: normal respiratory effort EFFORT & INSPECTION: Yes symmetric chest movement OTHER: B/L Diminished air entry at bases Cardio: COMMON NORMALS: regular rate, regular rhythm, S1 normal heart sound present, S2 normal heart sound present, No gallops present (Cardio), No murmurs present (Cardio), No rub (Cardio) and Peripheral pulses 2+ throughout RATE: regular rate RHYTHM: regular rhythm HEART SOUNDS: S1 normal heart sound present and S2 normal heart sound present PERIPHERAL PULSES: Peripheral pulses 2+ throughout GI: COMMON NORMALS: Normal to inspection, nondistended, normoactive bowel sounds present, Soft to palpation, non-tender, No hepatosplenomegaly present and no masses AUSCULTATION: Yes normoactive bowel sounds PALPATION: Yes Soft to palpation and Yes No hepatosplenomegaly present RECTAL EXAM: deferred Extremity: COMMON NORMALS: no clubbing, cyanosis or edema and no pedal edema Data : 07/27/20 06:05 07/27/20 06:05 Micro: Microbiology 07/24/20 06:30 Blood Culture - Preliminary Blood Coagulase negativ staphylococc 07/24/20 06:05 Blood Culture - Preliminary Blood Coagulase negativ staphylococc A&P Assessment and plan (1) Sepsis: Sepsis 2/2 COVID PNA / UTI Blood Cultures : Coagulase negative staph likely contaminant Urine Culture : Citrobacter Farmeri : Sensitive to Cefepime and augmentin Procal : 0.21 2D Echo : technically limited study with poor ultrasonic windows. LV systolic function is moderate to severely reduced with EF of 30 to 35% with above-mentioned regional wall motion abnormalities. Grade 1 diastolic dysfunction is present. Vancomycin ( 07/25-07/26 ) Ceftriaxone (07-24-07/26 ) Cefepime ( 07/26- TD ) Azithromycin ( 07/24-TD ) Continue Cefepime for now. Will Dc her on Po augmentin to complete 10 days course Status: Acute (2) Pneumonia due to nCoV: COVID PROTOCOL Remdesevir 100 mg I.V Daily ( DAY 4/5 ) Decadron 6mg I.V daily Ascorbic acid 500 mg po daily Continue Eliquis 2.5 mg q12 h daily. Status: Acute (3) Elevated troponin: Trend troponin Serial EKG Status: Acute (4) Pericardial effusion: Without Tamponad physiology.( small to medium sized pericardial effusion noted.No echocardiographic features of tamponade are seen) Will continue to monitor Status: Acute (5) Acute UTI: Continue Cefepime for now. Will Dc her on Po augmentin to complete 10 days course Status: Acute (6) Ischemic cardiomyopathy: Status: Acute (7) Heart failure: Currently compensated Continue lasix 40 mg po daily Status: Acute (8) History of cerebrovascular accident (CVA) greater than eight weeks in the past: Status: Acute Additional A&P Information Code Status :Full code DVT PPX: On Eliquis 2.5 mg q12 h daily Disposition:Home Attestations Medical Necessity Statement*: Patient needs to be in hospital for the management of sepsis and COVID PNA Coding Level of Care Code Acute Director Of Clinical Education for [facility] Fwd Diagnoses Sepsis A41.9 Pneumonia due to nCoV U07.1; J12.89 Elevated troponin R77.8 Pericardial effusion I31.3 Acute UTI N39.0 Ischemic cardiomyopathy I25.5 Heart failure I50.9 History of cerebrovascular accident (CVA) greater than eight weeks in the past Z86.73
--- NOTE | 2020-07-27 17:00 | DCPLANNER ---
Clinical Team Lead discusses the IM with daughter in law; Karen via the phone. No questions.
[2020-07-27] MEDS: cefepime 500 MG in sodium chloride 0.9% (plus) 50 ML 100 MG IV (22:21)
[2020-07-27] MEDS: atorvastatin 40 mg Tablet PO (22:22)
[2020-07-28] VITALS (10 sets, daily range): BP systolic 95–138; BP diastolic 60–88; PULSE 71–83; RESP 16–18; TEMP 35.8–37.1; O2SAT 90–96
[2020-07-28 03:34] LABS: Interleukin 6 (IL-6) Serum 12.78 pg/mL (<5.00)
[2020-07-28] MEDS: guaiFENesin-dextromethorphan UDC 10 mL 5 ML PO ×2 (08:19→17:13)
[2020-07-28] MEDS: remdesivir 100 MG in sodium chloride 0.9% (100 ml) 100 ML IV (08:19)
[2020-07-28] MEDS: aspirin 81 mg EC Tablet PO (08:20)
[2020-07-28] MEDS: pantoprazole DR 40 mg Tablet PO (08:20)
[2020-07-28] MEDS: isosorbide mononitrate ER 30 mg Tablet PO (08:20)
[2020-07-28] MEDS: ascorbic acid 500 mg Tablet PO (08:20)
[2020-07-28] MEDS: metoprolol succinate ER (24 HR) 25 mg Tablet 12.5 MG PO (08:20)
[2020-07-28] MEDS: apixaban 5 mg Tablet 2.5 MG PO (08:20)
[2020-07-28] MEDS: FUROsemide 10 mg/mL SDV 2mL 20 MG IVP (10:35)
[2020-07-28 11:23] LABS: Anion Gap 15.1 (5-19); Blood Urea Nitrogen 50 mg/dL (8-23); Calcium 8.6 mg/dL (8.5-10.5); Carbon Dioxide 15 mmol/L (22-29); Chloride 108 mmol/L (98-107); Glucose 240 mg/dL (65-115); Osmolality Calculated 299 mOsm/kg (285-295); Potassium 4.1 mmol/L (3.5-5.1); Sodium 134 mmol/L (136-145)
--- NOTE | 2020-07-28 12:00 | PM.PN ---
Subjective Subjective: Interval history: Ms. Arredondo is complaining of generalized weakness. Overall she has done well. She is participating in physical therapy. She is still needing 1-2 Ls oxygen to maintain a saturation greater than 90%. Her vitals and labs have been reviewed. Medications: Reviewed: Yes Vitals/I&O/Wt Last Vital Signs Temp 97.8 F 07/28/20 11:01 Pulse 72 07/28/20 11:01 Resp 16 07/28/20 11:01 BP 125/73 07/28/20 11:01 Pulse Ox 90 07/28/20 11:01 07/27/20 07/28/20 07/28/20 22:59 06:59 14:59 Intake Total 360 / 1180 360 / 360 Balance 360 / 1180 360 / 360 Weight last 48 hrs Weight 89.811 kg Physical Exam Const: COMMON NORMALS: patient oriented x3 HENMT: COMMON NORMALS: normocephalic and atraumatic HEAD & SCALP: normocephalic and atraumatic Chest: CHEST: Yes Symmetrical chest wall rise Resp: COMMON NORMALS: normal respiratory effort EFFORT & INSPECTION: Yes symmetric chest movement OTHER: Bilateral minimal basal crackles present in both the lungs minor. Cardio: COMMON NORMALS: S1 normal heart sound present and S2 normal heart sound present HEART SOUNDS: S1 normal heart sound present and S2 normal heart sound present GI: COMMON NORMALS: Normal to inspection, nondistended, normoactive bowel sounds present, Soft to palpation, non-tender, No hepatosplenomegaly present and no masses AUSCULTATION: Yes normoactive bowel sounds PALPATION: Yes Soft to palpation and Yes No hepatosplenomegaly present RECTAL EXAM: deferred Extremity: COMMON NORMALS: no clubbing, cyanosis or edema and no pedal edema Neuro: COMMON NORMALS: patient oriented x3 Data : 07/27/20 06:05 07/28/20 10:59 Micro: Microbiology 07/24/20 06:30 Blood Culture - Preliminary Blood Staphylococcus hominis 07/24/20 06:05 Blood Culture - Preliminary Blood Staphylococcus hominis A&P Assessment and plan (1) Sepsis: Sepsis 2/2 COVID PNA / UTI Blood Cultures : Coagulase negative staph : Staph.Hominis Urine Culture : Citrobacter Farmeri : Sensitive to Cefepime and augmentin. Repeat Urine Culture Ordered on 07/28 : will follow. Procal : 0.21 2D Echo : technically limited study with poor ultrasonic windows. LV systolic function is moderate to severely reduced with EF of 30 to 35% with above-mentioned regional wall motion abnormalities. Grade 1 diastolic dysfunction is present. Without Tamponad physiology.( small to medium sized pericardial effusion noted.No echocardiographic features of tamponade are seen) Will continue to monitor for now. Vancomycin ( 07/25-07/26 ) Ceftriaxone (07-24-07/26 ) Cefepime ( 07/26- TD ) Azithromycin ( 07/24-TD ) Continue Cefepime for now. Will Dc her on Po augmentin to complete 10 days course Status: Acute (2) Pneumonia due to 2018-nCoV: COVID PROTOCOL Remdesevir 100 mg I.V Daily ( DAY 12/02 ) Decadron 6mg I.V daily Ascorbic acid 500 mg po daily Continue Eliquis 2.5 mg q12 h daily.Will stop eliquis on discharge. Resume palvix 75 mg oral daily on dc Status: Acute (3) Elevated troponin: Trend troponin Serial EKG Status: Acute (4) Pericardial effusion: Without Tamponad physiology.( small to medium sized pericardial effusion noted.No echocardiographic features of tamponade are seen) Will continue to monitor Status: Acute (5) Acute UTI: Continue Cefepime for now. Will Dc her on Po augmentin to complete 10 days course Status: Acute (6) Ischemic cardiomyopathy: Status: Acute (7) Heart failure: HFrEF : Currently compensated . Lasix 20 mg I.V Given today. 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
[2020-07-28] MEDS: dexamethasone 4 mg/mL INJ 6 MG IVP (12:02)
--- NOTE | 2020-07-28 12:17 | XR_ITS ---
WS: [id number] Exam: XR chest 1V portable [id number] Date/Time of Exam: 07/28/2020 12:17 PM Reason For Exam: sob Comparison 07/24/2020. Mild patchy residual infiltrates in the mid and lower lung zones bilaterally. There has been improvem ent since the prior study. Some infiltrates on the right appear somewhat nodular in character. The he art is top limits of normal size for technique. There may be small left pleural effusion. No pneumoth orax. The mediastinum is not widened. Degenerative change of both shoulders. Monitoring leads superim pose the chest. XR/XR chest 1V portable [id number] IMPRESSION: 1. Improving bilateral infiltrates. Infiltrates on the right appear somewhat no dular in character. Radiographic follow-up until resolution is suggested.
[2020-07-28] MEDS: azithromycin 500 MG in sodium chloride 0.9% 250 ML 250 MG IV (13:33)
--- NOTE | 2020-07-28 13:55 | PC.NURSE ---
talked to daughter vasquez and answered questions
[2020-07-28 18:07] LABS: Basophils % 0.2 %; Hematocrit 41.2 % (37.0-47.0); Hemoglobin 12.7 g/dL (11.5-15.3); Lymphocytes # 0.5 10^3/uL (0.8-4.8); Lymphocytes % 4.7 %; Mean Corpuscular HGB Conc 30.8 g/dL (30.0-36.0); Mean Corpuscular Hemoglobin 30.8 pg (28.0-34.0); Mean Corpuscular Volume 99.8 fL (81-99); Mean Platelet Volume 10.8 fL (7.4-10.4); Monocytes # 0.4 10^3/uL (0.2-0.9); Monocytes % 4.2 %; Neutrophils # 8.95 10^3/uL (1.8-7.7); Neutrophils % 88.8 %; Nucleated Red Blood Cells % 0 %; Platelet Count 195 10^3/cmm (130-400); Red Blood Count 4.13 10^6/uL (4.1-5.3); Red Cell Distribution Width 14.9 % (12.1-15.1); White Blood Count 10.1 10^3/uL (4.0-10.0)
[2020-07-28] MEDS: atorvastatin 40 mg Tablet PO (21:38)
[2020-07-29] VITALS (12 sets, daily range): BP systolic 99–144; BP diastolic 39–83; PULSE 69–88; RESP 15–19; TEMP 35.7–36.4; O2SAT 87–96
[2020-07-29 07:05] LABS: Basophils # 0.1 10^3/uL (0.0-0.1); Basophils % 0.8 %; Hemoglobin 11.4 g/dL (11.5-15.3); Lymphocytes # 0.6 10^3/uL (0.8-4.8); Lymphocytes % 9.1 %; Mean Corpuscular HGB Conc 28.5 g/dL (30.0-36.0); Mean Corpuscular Hemoglobin 30.8 pg (28.0-34.0); Mean Corpuscular Volume 108.1 fL (81-99); Mean Platelet Volume 11.5 fL (7.4-10.4); Monocytes # 0.5 10^3/uL (0.2-0.9); Monocytes % 8.2 %; Neutrophils % 79.1 %; Nucleated Red Blood Cells % 0 %; Platelet Count 143 10^3/cmm (130-400); Red Cell Distribution Width 15.1 % (12.1-15.1); White Blood Count 6.1 10^3/uL (4.0-10.0)
[2020-07-29 07:38] LABS: Alanine Aminotransferase 62 U/L (0-33); Albumin Level 2.6 g/dL (3.5-5.2); Alkaline Phosphatase 56 IU/L (35-105); Aspartate Amino Transferase 45 U/L (0-32); Blood Urea Nitrogen 51 mg/dL (8-23); Calcium 8.3 mg/dL (8.5-10.5); Carbon Dioxide 17 mmol/L (22-29); Chloride 108 mmol/L (98-107); Globulin 2.5 g/dL (1.3-4.6); Glucose 187 mg/dL (65-115); Osmolality Calculated 297 mOsm/kg (285-295); Sodium 134 mmol/L (136-145); Total Bilirubin 0.4 mg/dL (0.15-1.2); Total Protein 5.1 g/dL (6.6-8.7)
[2020-07-29 07:52] LABS: Anion Gap 13.7 (5-19); Potassium 4.7 mmol/L (3.5-5.1)
[2020-07-29] MEDS: ascorbic acid 500 mg Tablet PO (09:38)
[2020-07-29] MEDS: aspirin 81 mg EC Tablet PO (09:38)
[2020-07-29] MEDS: metoprolol succinate ER (24 HR) 25 mg Tablet 12.5 MG PO (09:39)
[2020-07-29] MEDS: isosorbide mononitrate ER 30 mg Tablet PO (09:40)
[2020-07-29] MEDS: guaiFENesin-dextromethorphan UDC 10 mL 5 ML PO ×2 (09:40→16:33)
[2020-07-29] MEDS: pantoprazole DR 40 mg Tablet PO (09:40)
--- NOTE | 2020-07-29 10:30 | PC.SOCIAL ---
IMM Updated Page 2 of IMM updated and given to patient. Initialed, dated, and timed and placed back in chart.
[2020-07-29] MEDS: dexamethasone 4 mg/mL INJ 6 MG IVP (11:22)
[2020-07-29] MEDS: azithromycin 500 MG in sodium chloride 0.9% 250 ML 250 MG IV (14:19)
[2020-07-29] MEDS: atorvastatin 40 mg Tablet PO (19:52)
--- NOTE | 2020-07-29 20:05 | P.PN_ITS ---
Subjective Subjective: Interval history: Ms Arredondo is doing fine. She was seen eating breakfast. Supplemental oxygen requirement is doing doing. She has remained afebrile, other vials have been reviewed. Labs have been reviewed. Medications: Reviewed: Yes Vitals/I&O/Wt Last Vital Signs Temp 97.5 F L 07/29/20 19:31 Pulse 83 07/29/20 19:31 Resp 15 07/29/20 19:31 BP 116/74 07/29/20 19:31 Pulse Ox 96 07/29/20 15:24 07/29/20 07/29/20 07/29/20 06:59 14:59 22:59 Intake Total 200 / 200 390 / 590 Output Total 150 / 1650 300 / 300 300 / 600 Balance -150 / -510 -100 / -100 90 / -10 Weight last 48 hrs Weight 87.997 kg Weight 89.811 kg Physical Exam Narrative: EXAM NARRATIVE: Alert and awake HENMT: COMMON NORMALS: normocephalic and atraumatic HEAD & SCALP: normocephalic and atraumatic Chest: CHEST: Yes Symmetrical chest wall rise Resp: COMMON NORMALS: clear to auscultation bilaterally EFFORT & INSPECTION: Yes symmetric chest movement AUSCULTATION: clear to auscultation bilaterally Cardio: COMMON NORMALS: regular rate, regular rhythm, S1 normal heart sound present, S2 normal heart sound present, No gallops present (Cardio), No murmurs present (Cardio), No rub (Cardio) and Peripheral pulses 2+ throughout RATE: regular rate RHYTHM: regular rhythm HEART SOUNDS: S1 normal heart sound present and S2 normal heart sound present PERIPHERAL PULSES: Peripheral pulses 2+ throughout GI: COMMON NORMALS: Normal to inspection, nondistended, normoactive bowel sounds present, Soft to palpation, non-tender, No hepatosplenomegaly present and no masses AUSCULTATION: Yes normoactive bowel sounds PALPATION: Yes Soft to palpation and Yes No hepatosplenomegaly present RECTAL EXAM: deferred Extremity: COMMON NORMALS: no clubbing, cyanosis or edema and no pedal edema Data : 07/29/20 06:38 07/29/20 06:38 A&P Assessment and plan (1) Sepsis: Sepsis 2/2 COVID PNA / UTI Blood Cultures : Coagulase negative staph : Staph.Hominis Urine Culture : Citrobacter Farmeri : Sensitive to Cefepime and augmentin. Repeat Urine Culture Ordered on 07/28 : will follow. Procal : 0.21 2D Echo : technically limited study with poor ultrasonic windows. LV systolic function is moderate to severely reduced with EF of 30 to 35% with above- mentioned regional wall motion abnormalities. Grade 1 diastolic dysfunction is present. Without Tamponad physiology.( small to medium sized pericardial effusion noted.No echocardiographic features of tamponade are seen) Will continue to monitor for now. Vancomycin ( 07/25-07/26 ) Ceftriaxone (07-24-07/26 ) Cefepime ( 07/26- TD ) Azithromycin ( 07/24-TD ) Continue Cefepime for now. Will Dc her on Po augmentin to complete 10 days course Status: Acute (2) Pneumonia due to 2019-nCoV: COVID PROTOCOL Remdesevir 100 mg I.V Daily ( DAY 12/02 ) Decadron 6mg I.V daily Ascorbic acid 500 mg po daily Initially on Eliquis 2.5 mg q12 h daily.Has been stopped due o bleeding risk. Status: Acute (3) Pericardial effusion: Without Tamponad physiology.( small to medium sized pericardial effusion noted.No echocardiographic features of tamponade are seen) Will continue to monitor Repeat ECHO as outpatient. 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 She had some moderate disease in the other vessels. Based on the angiogram findings it was opted to treat her medically. Continue Aspirin 81 m oral daily Plavix 75 mg oral daily M.Succinate 12.5 mg po daily Nitro SL PRN Status: Acute (5) Acute UTI: Continue Cefepime for now. Will Dc her on Po augmentin to complete 10 days course Status: Acute (6) Heart failure: HFrEF : Currently compensated . On Lasix 40 mg I.V daily Status: Acute (7) Elevated troponin: Trend troponin Serial EKG Status: Acute (8) Ischemic cardiomyopathy: Status: Acute (9) History of cerebrovascular accident (CVA) greater than eight weeks in the past: Status: Acute Additional A&P Information Code Status :Full code DVT PPX: On lovenox 40 mg sc daily. Disposition:Home. Anticipated DC In 2 days. 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
[2020-07-29] MEDS: enoxaparin 40 mg/0.4 mL Syringe SUBCUT (20:41)
[2020-07-29] MEDS: FUROsemide 10 mg/mL SDV 4mL 40 MG IVP (20:41)
[2020-07-29] MEDS: albuterol 8 gm MDI 2 PUFF INHALATION (22:11)
[2020-07-30] VITALS (11 sets, daily range): BP systolic 102–150; BP diastolic 56–88; PULSE 64–90; RESP 16–20; TEMP 35.9–36.5; O2SAT 90–97; BMI 35.1
[2020-07-30 06:19] LABS: Basophils % 0.3 %; Hematocrit 37.4 % (37.0-47.0); Hemoglobin 11.2 g/dL (11.5-15.3); Lymphocytes # 0.6 10^3/uL (0.8-4.8); Lymphocytes % 7.1 %; Mean Corpuscular HGB Conc 29.9 g/dL (30.0-36.0); Mean Corpuscular Hemoglobin 31.2 pg (28.0-34.0); Mean Corpuscular Volume 104.2 fL (81-99); Mean Platelet Volume 11.9 fL (7.4-10.4); Monocytes # 0.7 10^3/uL (0.2-0.9); Monocytes % 8.8 %; Neutrophils # 6.03 10^3/uL (1.8-7.7); Neutrophils % 77.5 %; Nucleated Red Blood Cells % 0 %; Platelet Count 179 10^3/cmm (130-400); Red Blood Count 3.59 10^6/uL (4.1-5.3); Red Cell Distribution Width 15.2 % (12.1-15.1); White Blood Count 7.8 10^3/uL (4.0-10.0)
[2020-07-30 06:37] LABS: Alanine Aminotransferase 62 U/L (0-33); Albumin Level 2.2 g/dL (3.5-5.2); Alkaline Phosphatase 58 IU/L (35-105); Aspartate Amino Transferase 42 U/L (0-32); Blood Urea Nitrogen 52 mg/dL (8-23); Calcium 8.2 mg/dL (8.5-10.5); Carbon Dioxide 20 mmol/L (22-29); Chloride 109 mmol/L (98-107); Glucose 232 mg/dL (65-115); Osmolality Calculated 301 mOsm/kg (285-295); Sodium 135 mmol/L (136-145); Total Bilirubin 0.4 mg/dL (0.15-1.2); Total Protein 5.2 g/dL (6.6-8.7)
[2020-07-30 06:40] LABS: Anion Gap 10.7 (5-19); Potassium 4.7 mmol/L (3.5-5.1)
[2020-07-30 07:26] LABS: Add RBC Morph Yes; Slide Review Slide Review Perform
[2020-07-30 07:27] LABS: Ovalocytes 2+; Poikilocytosis 2+
[2020-07-30 07:28] LABS: Burr Cells 2+; RBC Morph Comp Yes; Schistocytes Trace
--- NOTE | 2020-07-30 07:34 | CT_ITS ---
WS: [id number] CT CHEST TECHNIQUE: Noncontrast CT of the chest with coronal and sagittal reformatted images. CLINICAL INFORMATION: SOB COMPARISON: CT chest July 24, 2020 DLP: 894.[address] scans at [facility] use at least one of these dose optimization techniques: automat ed exposure control; mA and/or kV adjustment per patient size (includes targeted exams where dose is matched to clinical indication); or iterative reconstruction. FINDINGS: Moderate chronic emphysematous changes. Hazy groundglass infiltrates in the perihilar regions and bot h lower lobes. This is similar in appearance to the prior examination. Perihilar groundglass infiltra dieter are slightly progressed. Improved subsegmental atelectasis in the lung bases. Groundglass infiltr ates in the lung bases appear slightly progressed. No significant pleural fluid. No consolidation. Fo galindo opacity right lower lobe at the diaphragm measuring 8 mm. No mediastinal or hilar lymphadenopathy. Aortic calcification. Coronary calcification. Moderate peric ardial effusion is unchanged. No axillary lymphadenopathy. Adrenal glands are normal. Bilateral renal cortical atrophy. Partially visualized cystic lesions both kidneys. This can be followed up with ultrasound. Indeterminate left upper pole renal lesion measuri ng 2.5 CM. Small esophageal hiatal hernia. Mild thoracic kyphosis. Hypertrophic changes thoracic spin e. CT/CT chest wo con [id number] IMPRESSION: 1. Bilateral perihilar and lower lobe groundglass infiltrates suspicious for C OVID 19 pneumonitis. Perihilar infiltrates are progressed. Subsegmental atelect asis has improved in the lung bases. 2. Stable moderate pericardial effusion. 3. No focal consolidation or pleural fluid. 4. Moderate chronic emphysematous changes. 5. More focal opacity in the right lower lobe at the diaphragm measuring 8 mm. 6. Partially visualized indeterminant renal cystic lesions larger in the left upper pole measuring 2.5 cm. This could followed up with ultrasound.
[2020-07-30] MEDS: isosorbide mononitrate ER 30 mg Tablet PO (08:55)
[2020-07-30] MEDS: clopidogrel 75 mg Tablet PO (08:55)
[2020-07-30] MEDS: guaiFENesin-dextromethorphan UDC 10 mL 5 ML PO ×2 (08:55→16:39)
[2020-07-30] MEDS: metoprolol succinate ER (24 HR) 25 mg Tablet 12.5 MG PO (08:55)
[2020-07-30] MEDS: aspirin 81 mg EC Tablet PO (08:55)
[2020-07-30] MEDS: pantoprazole DR 40 mg Tablet PO (08:55)
[2020-07-30] MEDS: ascorbic acid 500 mg Tablet PO (08:56)
[2020-07-30] MEDS: albuterol 8 gm MDI 2 PUFF INHALATION ×2 (09:01→20:08)
[2020-07-30] MEDS: dexamethasone 4 mg/mL INJ 6 MG IVP (10:36)
[2020-07-30] MEDS: azithromycin 500 MG in sodium chloride 0.9% 250 ML 250 MG IV (14:36)
--- NOTE | 2020-07-30 15:25 | P.PN_ITS ---
Subjective Subjective: Interval history: No acute events overnight. On oxygen. Eating lunch. Vitals/I&O/Wt Last Vital Signs Temp 97.5 F L 07/30/20 11:19 Pulse 82 07/30/20 11:19 Resp 18 07/30/20 11:19 BP 110/71 07/30/20 11:19 Pulse Ox 96 07/30/20 11:19 07/30/20 07/30/20 07/30/20 06:59 14:59 22:59 Intake Total 480 / 480 Output Total 700 / 1300 Balance -700 / -340 480 / 480 Weight last 48 hrs Weight 186 lb Weight 194 lb Physical Exam Const: COMMON NORMALS: no acute distress and average body habitus OTHER: Pleasantly confused Resp: COMMON NORMALS: normal respiratory effort EFFORT & INSPECTION: No labored and No stridor Cardio: COMMON NORMALS: negative for regular rate and negative for regular rhythm RATE: abnormal rate RHYTHM: abnormal rhythm GI: COMMON NORMALS: Normal to inspection, nondistended, normoactive bowel sounds present and Soft to palpation PALPATION: Yes Soft to palpation Psych: COMMON NORMALS: cooperative Data : 07/30/20 06:05 07/30/20 06:05 Micro: Microbiology 07/24/20 06:30 Blood Culture - Final Blood Staphylococcus hominis 07/24/20 06:05 Blood Culture - Final Blood Staphylococcus hominis A&P Assessment and plan (1) Pneumonia due to 2019-nCoV: Status: Acute (2) Sepsis: Status: Acute Additional A&P Information 1) Sepsis: Sepsis 2/2 COVID PNA / UTI Blood Cultures : Coagulase negative staph : Staph.Hominis Urine Culture : Citrobacter Farmeri : Sensitive to Cefepime and augmentin. Repeat Urine Culture Ordered on 07/28 : will follow. Procal : 0.21 2D Echo : technically limited study with poor ultrasonic windows. LV systolic function is moderate to severely reduced with EF of 30 to 35% with above- mentioned regional wall motion abnormalities. Grade 1 diastolic dysfunction is present. Without Tamponad physiology.( small to medium sized pericardial effusion noted.No echocardiographic features of tamponade are seen) Will continue to monitor for now. Vancomycin ( 07/25-07/26 ) Ceftriaxone (07-24-07/26 ) Cefepime ( 07/26- TD ) Azithromycin ( 07/24-TD ) Continue Cefepime for now. Will Dc her on Po augmentin to complete 10 days course Status: Acute (2) Pneumonia due to 2018-nCoV: COVID PROTOCOL Remdesevir 100 mg I.V Daily ( DAY 12/02 ) completed yesterday Decadron 6mg I.V daily Ascorbic acid 500 mg po daily Initially on Eliquis 2.5 mg q12 h daily.Has been stopped due o bleeding risk. Status: Acute (3) Pericardial effusion: Without Tamponad physiology.( small to medium sized pericardial effusion noted.No echocardiographic features of tamponade are seen) Will continue to monitor Repeat ECHO as outpatient. 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 She had some moderate disease in the other vessels. Based on the angiogram findings it was opted to treat her medically. Continue Aspirin 81 m oral daily Plavix 75 mg oral daily M.Succinate 12.5 mg po daily Nitro SL PRN Status: Acute (5) Acute UTI: Continue Cefepime for now. Will Dc her on Po augmentin to complete 10 days course Status: Acute (6) Heart failure: HFrEF : Currently compensated . 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
--- NOTE | 2020-07-30 16:23 | PC.NURSE ---
attempted obtaining new IV twice and was unsuccessful. Left IV dated 07/25/[address] until new iv is obtained.
[2020-07-30] MEDS: bisacodyl 5 mg Tablet 10 MG PO (16:39)
--- NOTE | 2020-07-30 16:57 | PC.NURSE ---
US Faxed request to [facility] for medical records.
[2020-07-30] MEDS: FUROsemide 10 mg/mL SDV 4mL 40 MG IVP (19:42)
[2020-07-30] MEDS: atorvastatin 40 mg Tablet PO (19:44)
[2020-07-30] MEDS: enoxaparin 40 mg/0.4 mL Syringe SUBCUT (19:44)
[2020-07-31] VITALS (10 sets, daily range): BP systolic 100–154; BP diastolic 68–92; PULSE 67–93; RESP 15–24; TEMP 36.4–36.7; O2SAT 89–95; BMI 35.1
--- NOTE | 2020-07-31 00:53 | PC.NURSE ---
Patient incontinent of urine, large amount of urine in bed pads.
[2020-07-31 06:39] LABS: Basophils % 0.3 %; Eosinophils % 0.3 %; Hematocrit 35.3 % (37.0-47.0); Hemoglobin 10.7 g/dL (11.5-15.3); Lymphocytes # 0.6 10^3/uL (0.8-4.8); Lymphocytes % 7.6 %; Mean Corpuscular HGB Conc 30.3 g/dL (30.0-36.0); Mean Corpuscular Hemoglobin 30.7 pg (28.0-34.0); Mean Corpuscular Volume 101.1 fL (81-99); Mean Platelet Volume 11.9 fL (7.4-10.4); Monocytes # 0.8 10^3/uL (0.2-0.9); Monocytes % 9.8 %; Neutrophils # 5.68 10^3/uL (1.8-7.7); Neutrophils % 73.5 %; Nucleated Red Blood Cells % 0 %; Platelet Count 185 10^3/cmm (130-400); Red Blood Count 3.49 10^6/uL (4.1-5.3); Red Cell Distribution Width 15.1 % (12.1-15.1); White Blood Count 7.7 10^3/uL (4.0-10.0)
[2020-07-31 07:13] LABS: Alanine Aminotransferase 58 U/L (0-33); Albumin Level 2.6 g/dL (3.5-5.2); Alkaline Phosphatase 58 IU/L (35-105); Anion Gap 12.2 (5-19); Aspartate Amino Transferase 31 U/L (0-32); Blood Urea Nitrogen 56 mg/dL (8-23); Calcium 8.4 mg/dL (8.5-10.5); Carbon Dioxide 20 mmol/L (22-29); Chloride 109 mmol/L (98-107); Globulin 2.7 g/dL (1.3-4.6); Glucose 192 mg/dL (65-115); Osmolality Calculated 305 mOsm/kg (285-295); Potassium 4.2 mmol/L (3.5-5.1); Sodium 137 mmol/L (136-145); Total Bilirubin 0.4 mg/dL (0.15-1.2); Total Protein 5.3 g/dL (6.6-8.7)
[2020-07-31 07:21] LABS: Slide Review Slide Review Perform
[2020-07-31] MEDS: albuterol 8 gm MDI 2 PUFF INHALATION ×2 (08:30→16:15)
[2020-07-31] MEDS: aspirin 81 mg EC Tablet PO (09:25)
[2020-07-31] MEDS: metoprolol succinate ER (24 HR) 25 mg Tablet 12.5 MG PO (09:25)
[2020-07-31] MEDS: ascorbic acid 500 mg Tablet PO (09:25)
[2020-07-31] MEDS: clopidogrel 75 mg Tablet PO (09:25)
[2020-07-31] MEDS: pantoprazole DR 40 mg Tablet PO (09:25)
[2020-07-31] MEDS: guaiFENesin-dextromethorphan UDC 10 mL 5 ML PO ×2 (09:25→17:43)
[2020-07-31] MEDS: isosorbide mononitrate ER 30 mg Tablet PO (09:26)
[2020-07-31] MEDS: dexamethasone 4 mg/mL INJ 6 MG IVP (11:38)
--- NOTE | 2020-07-31 12:23 | PC.NURSE ---
updated patient's daughter Michelle
--- NOTE | 2020-07-31 14:43 | P.PN_ITS ---
Subjective Subjective: Interval history: No acute events overnight. On oxygen. Eating lunch. Medications: Reviewed: Yes Vitals/I&O/Wt Last Vital Signs Temp 98.1 F 07/31/20 11:23 Pulse 88 07/31/20 11:23 Resp 17 07/31/20 11:23 BP 137/74 07/31/20 11:23 Pulse Ox 91 07/31/20 11:23 07/30/20 07/31/20 07/31/20 22:59 06:59 14:59 Intake Total 240 / 720 240 / 960 360 / 360 Output Total 400 / 400 400 / 800 Balance -160 / 320 -160 / 160 360 / 360 Weight last 48 hrs Weight 186 lb Weight 186 lb Physical Exam Const: COMMON NORMALS: no acute distress and average body habitus OTHER: Pleasantly confused Resp: COMMON NORMALS: normal respiratory effort EFFORT & INSPECTION: No labored and No stridor Cardio: COMMON NORMALS: negative for regular rate and negative for regular rhythm RATE: abnormal rate RHYTHM: abnormal rhythm GI: COMMON NORMALS: Normal to inspection, nondistended, normoactive bowel sounds present and Soft to palpation PALPATION: Yes Soft to palpation Psych: COMMON NORMALS: cooperative Data : 07/31/20 06:30 07/31/20 06:30 Micro: Microbiology 07/30/20 14:33 Urine Culture - Preliminary Urine,Clean Catch 07/24/20 06:30 Blood Culture - Final Blood Staphylococcus hominis 07/24/20 06:05 Blood Culture - Final Blood Staphylococcus hominis A&P Assessment and plan (1) Pneumonia due to 2019-nCoV: Status: Acute (2) Sepsis: Status: Acute Additional A&P Information 1) Sepsis: Sepsis 2/2 COVID PNA / UTI Blood Cultures : Coagulase negative staph : Staph.Hominis Urine Culture : Citrobacter Farmeri : Sensitive to Cefepime and augmentin. 07/30 UCX pending not growth Procal : 0.21 2D Echo : technically limited study with poor ultrasonic windows. LV systolic function is moderate to severely reduced with EF of 30 to 35% with above- mentioned regional wall motion abnormalities. Grade 1 diastolic dysfunction is present. Without Tamponad physiology.( small to medium sized pericardial effusion noted.No echocardiographic features of tamponade are seen) Will continue to monitor for now. Vancomycin ( 07/25-07/26 ) Ceftriaxone (07-24-12/27 ) Cefepime ( 07/26- TD ) Azithromycin ( 07/24-TD ) Continue Cefepime for now. Will Dc her on Po augmentin to complete 10 days course Status: Acute (2) Pneumonia due to 2018-nCoV: COVID PROTOCOL Remdesevir 100 mg I.V Daily ( DAY 12/02 ) completed 07/29 Decadron 6mg I.V daily Ascorbic acid 500 mg po daily Initially on Eliquis 2.5 mg q12 h daily.Has been stopped due o bleeding risk. Status: Acute (3) Pericardial effusion: Without Tamponad physiology.( small to medium sized pericardial effusion noted.No echocardiographic features of tamponade are seen) Will continue to monitor Repeat ECHO as outpatient. 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 She had some moderate disease in the other vessels. Based on the angiogram findings it was opted to treat her medically. Continue Aspirin 81 m oral daily Plavix 75 mg oral daily M.Succinate 12.5 mg po daily Nitro SL PRN Status: Acute (5) Acute UTI: Continue Cefepime for now. Will Dc her on Po augmentin to complete 10 days course Status: Acute (6) Heart failure: HFrEF : Currently compensated . On Lasix 40 mg I.V daily Attestations Medical Necessity Statement*: Aaliyah Arredondo's hospital stay will require greater than 2 midnights for pneumonia Coding Level of Care Code Acute Steak Tenderizer Machine for [facility] Fwd Exam Detailed Diagnoses Pneumonia due to nCoV U07.1; J12.89 Sepsis A41.9
[2020-07-31] MEDS: azithromycin 500 MG in sodium chloride 0.9% 250 ML 250 MG IV (14:45)
[2020-07-31] MEDS: FUROsemide 10 mg/mL SDV 4mL 40 MG IVP (21:03)
[2020-07-31] MEDS: atorvastatin 40 mg Tablet PO (21:59)
[2020-07-31] MEDS: enoxaparin 40 mg/0.4 mL Syringe SUBCUT (21:59)
[2020-08-01] VITALS (11 sets, daily range): BP systolic 107–146; BP diastolic 65–84; PULSE 70–82; RESP 16–20; TEMP 36.4–36.9; O2SAT 89–97
[2020-08-01] MEDS: albuterol 8 gm MDI 2 PUFF INHALATION ×4 (01:45→14:53)
[2020-08-01] MEDS: metoprolol succinate ER (24 HR) 25 mg Tablet 12.5 MG PO (08:58)
[2020-08-01] MEDS: guaiFENesin-dextromethorphan UDC 10 mL 5 ML PO ×2 (08:59→18:03)
[2020-08-01] MEDS: aspirin 81 mg EC Tablet PO (08:59)
[2020-08-01] MEDS: ascorbic acid 500 mg Tablet PO (08:59)
[2020-08-01] MEDS: pantoprazole DR 40 mg Tablet PO (09:00)
[2020-08-01] MEDS: isosorbide mononitrate ER 30 mg Tablet PO (09:00)
[2020-08-01] MEDS: clopidogrel 75 mg Tablet PO (09:00)
[2020-08-01] MEDS: FUROsemide 40 mg Tablet PO (10:45)
[2020-08-01] MEDS: dexamethasone 4 mg/mL INJ 6 MG IVP (10:45)
[2020-08-01 10:50] LABS: Basophils # 0.1 10^3/uL (0.0-0.1); Basophils % 0.6 %; Eosinophils % 0.3 %; Hematocrit 37.4 % (37.0-47.0); Hemoglobin 11.4 g/dL (11.5-15.3); Lymphocytes # 0.5 10^3/uL (0.8-4.8); Lymphocytes % 6.4 %; Mean Corpuscular HGB Conc 30.5 g/dL (30.0-36.0); Mean Corpuscular Hemoglobin 31.1 pg (28.0-34.0); Mean Corpuscular Volume 101.9 fL (81-99); Mean Platelet Volume 11.5 fL (7.4-10.4); Monocytes # 0.6 10^3/uL (0.2-0.9); Monocytes % 7.8 %; Neutrophils # 5.91 10^3/uL (1.8-7.7); Neutrophils % 76.7 %; Nucleated Red Blood Cells % 0.3 %; Platelet Count 192 10^3/cmm (130-400); Red Blood Count 3.67 10^6/uL (4.1-5.3); Red Cell Distribution Width 15.3 % (12.1-15.1); White Blood Count 7.7 10^3/uL (4.0-10.0)
[2020-08-01 11:03] LABS: Alanine Aminotransferase 54 U/L (0-33); Albumin Level 2.6 g/dL (3.5-5.2); Alkaline Phosphatase 63 IU/L (35-105); Aspartate Amino Transferase 32 U/L (0-32); Blood Urea Nitrogen 55 mg/dL (8-23); Calcium 8.4 mg/dL (8.5-10.5); Carbon Dioxide 21 mmol/L (22-29); Chloride 104 mmol/L (98-107); Globulin 2.8 g/dL (1.3-4.6); Glucose 188 mg/dL (65-115); Osmolality Calculated 298 mOsm/kg (285-295); Sodium 134 mmol/L (136-145); Total Bilirubin 0.6 mg/dL (0.15-1.2); Total Protein 5.4 g/dL (6.6-8.7)
[2020-08-01 11:05] LABS: Anion Gap 13.4 (5-19); Potassium 4.4 mmol/L (3.5-5.1)
[2020-08-01 11:23] LABS: Slide Review Slide Review Perform
--- NOTE | 2020-08-01 14:15 | PM.PN ---
Subjective Subjective: Interval history: was lethargic today, she was Comparatively more SOB today. Her Supplemental oxygen requirement has also increased slightly. She has remained afebrile. Other Vitals and labs have been reviewed . Medications: Reviewed: Yes Vitals/I&O/Wt Last Vital Signs Temp 98.5 F 08/01/20 11:50 Pulse 78 08/01/20 11:53 Resp 17 08/01/20 11:53 BP 146/75 08/01/20 11:50 Pulse Ox 90 08/01/20 11:53 07/31/20 08/01/20 08/01/20 22:59 06:59 14:59 Intake Total 780 / 1140 360 / 360 Output Total 300 / 300 Balance 480 / 840 360 / 360 Weight last 48 hrs Weight 88.405 kg Weight 84.368 kg Physical Exam Narrative: EXAM NARRATIVE: Alert and awake Const: COMMON NORMALS: patient oriented x3 HENMT: COMMON NORMALS: normocephalic and atraumatic HEAD & SCALP: normocephalic and atraumatic Chest: CHEST: Yes Symmetrical chest wall rise Resp: COMMON NORMALS: clear to auscultation bilaterally EFFORT & INSPECTION: Yes symmetric chest movement AUSCULTATION: clear to auscultation bilaterally OTHER: Bilateral minimal basal crackles present in both the lungs minor. Cardio: COMMON NORMALS: regular rate, regular rhythm, S1 normal heart sound present, S2 normal heart sound present, No gallops present (Cardio), No murmurs present (Cardio), No rub (Cardio) and Peripheral pulses 2+ throughout RATE: regular rate RHYTHM: regular rhythm HEART SOUNDS: S1 normal heart sound present and S2 normal heart sound present PERIPHERAL PULSES: Peripheral pulses 2+ throughout GI: COMMON NORMALS: Normal to inspection, nondistended, normoactive bowel sounds present, Soft to palpation, non-tender, No hepatosplenomegaly present and no masses AUSCULTATION: Yes normoactive bowel sounds PALPATION: Yes Soft to palpation and Yes No hepatosplenomegaly present RECTAL EXAM: deferred Extremity: COMMON NORMALS: no clubbing, cyanosis or edema and no pedal edema Neuro: COMMON NORMALS: patient oriented x3 Data : 08/01/20 10:30 08/01/20 10:30 Micro: Microbiology 07/30/20 14:33 Urine Culture - Final Urine,Clean Catch A&P Assessment and plan (1) Pneumonia due to 2019-nCoV: COVID PROTOCOL Remdesevir 100 mg I.V Daily ( DAY 12/02 ) Decadron 6mg I.V daily Ascorbic acid 500 mg po daily Initially on Eliquis 2.5 mg q12 h daily.Has been stopped due o bleeding risk. Status: Acute (2) Sepsis: Sepsis 2/2 COVID PNA / UTI Blood Cultures : Coagulase negative staph : Staph.Hominis Urine Culture : Citrobacter Farmeri : Sensitive to Cefepime and augmentin. Repeat Urine Culture Ordered on 07/28 :Negative Procal : 0.21 2D Echo : technically limited study with poor ultrasonic windows. LV systolic function is moderate to severely reduced with EF of 30 to 35% with above-mentioned regional wall motion abnormalities. Grade 1 diastolic dysfunction is present. Without Tamponad physiology.( small to medium sized pericardial effusion noted.No echocardiographic features of tamponade are seen) Will continue to monitor for now. Vancomycin ( 07/25-07/26 ) Ceftriaxone (07-24-07/26 ) Cefepime ( 07/26- TD ) Azithromycin ( 07/24-TD ) Continue Cefepime for now. Will Dc her on Po augmentin to complete 10 days course Status: Acute Additional A&P Information 1) Sepsis: Sepsis 2/2 COVID PNA / UTI Blood Cultures : Coagulase negative staph : Staph.Hominis Urine Culture : Citrobacter Farmeri : Sensitive to Cefepime and augmentin. 07/30 UCX pending not growth Procal : 0.21 2D Echo : technically limited study with poor ultrasonic windows. LV systolic function is moderate to severely reduced with EF of 30 to 35% with above-mentioned regional wall motion abnormalities. Grade 1 diastolic dysfunction is present. Without Tamponad physiology.( small to medium sized pericardial effusion noted.No echocardiographic features of tamponade are seen) Will continue to monitor for now. Vancomycin ( 07/25-07/26 ) Ceftriaxone (07-24-07/26 ) Cefepime ( 07/26- TD ) Azithromycin ( 07/24-TD ) Continue Cefepime for now. Will Dc her on Po augmentin to complete 10 days course Status: Acute (2) Pneumonia due to 2018-nCoV: COVID PROTOCOL Remdesevir 100 mg I.V Daily ( DAY 5/5 ) completed 07/29 Decadron 6mg I.V daily Ascorbic acid 500 mg po daily Initially on Eliquis 2.5 mg q12 h daily.Has been stopped due o bleeding risk. Status: Acute (3) Pericardial effusion: Without Tamponad physiology.( small to medium sized pericardial effusion noted.No echocardiographic features of tamponade are seen) Will continue to monitor Repeat ECHO as outpatient. 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 She had some moderate disease in the other vessels. Based on the angiogram findings it was opted to treat her medically. Continue Aspirin 81 m oral daily Plavix 75 mg oral daily M.Succinate 12.5 mg po daily Nitro SL PRN Status: Acute (5) Acute UTI: Continue Cefepime for now. Will Dc her on Po augmentin to complete 10 days course Status: Acute (6) Heart failure: HFrEF : Currently compensated . On Lasix 40 mg I.V daily Attestations Medical Necessity Statement*: Patient needs to be in hospital for the management of COVID PNA Coding Level of Care Code Acute Sports Internship for [facility] Fwd Diagnoses Pneumonia due to 2019-nCoV U07.1; J12.89 Sepsis A41.9
[2020-08-01] MEDS: azithromycin 500 MG in sodium chloride 0.9% 250 ML 250 MG IV (14:45)
[2020-08-01 15:55] LABS: ABG PCO2 23.9 mmHg (35-45); ABG PH Result 7.45 (7.35-7.45); Alveolar-Arterial Oxygen Gradi 7.1 mmHg (5-10); Arterial Blood Gas Hematocrit 37.2 % (37-47); Base Excess ABG -5.9 mmol/L (-2.0-2.0); Blood Gas Allen Test Pos; Blood Gas Sample Type Arterial; Carboxyhemoglobin 0.7 %THgb (0.4-20.1); HCO3 ABG 16.5 mmol/L (22-26); HGB O2 Sat 91.8 % (95-100); Ionized Calcium Level - ABG 1.2 mmol/L (1.1-1.4); Methemoglobin 0.5 % (0.4-1.5); Oxygen Saturation ABG 92.9; Potassium Level - ABG 4.6 mmol/L (3.5-5.0); Total Hemoglobin 12.1 g/dL (12-16)
[2020-08-01 15:56] LABS: Blood Gas Sample Site Radial, left; Oxygen Device NC
[2020-08-01] MEDS: FUROsemide 10 mg/mL SDV 4mL 40 MG IVP ×2 (16:21→20:33)
[2020-08-01] MEDS: apixaban 5 mg Tablet 2.5 MG PO (18:03)
[2020-08-01] MEDS: atorvastatin 40 mg Tablet PO (21:36)
[2020-08-02] VITALS (13 sets, daily range): BP systolic 114–129; BP diastolic 62–90; PULSE 69–91; RESP 12–19; TEMP 36.4–36.8; O2SAT 89–98
[2020-08-02 06:46] LABS: Basophils % 0.3 %; Hematocrit 34.5 % (37.0-47.0); Hemoglobin 10.9 g/dL (11.5-15.3); Lymphocytes # 0.5 10^3/uL (0.8-4.8); Mean Corpuscular HGB Conc 31.6 g/dL (30.0-36.0); Mean Corpuscular Hemoglobin 30.8 pg (28.0-34.0); Mean Corpuscular Volume 97.5 fL (81-99); Mean Platelet Volume 12.3 fL (7.4-10.4); Monocytes # 0.6 10^3/uL (0.2-0.9); Neutrophils # 5.39 10^3/uL (1.8-7.7); Nucleated Red Blood Cells % 0 %; Platelet Count 168 10^3/cmm (130-400); Red Blood Count 3.54 10^6/uL (4.1-5.3); Red Cell Distribution Width 15.2 % (12.1-15.1); White Blood Count 7.2 10^3/uL (4.0-10.0)
[2020-08-02 07:04] LABS: D Dimer 1.57 ug/mIFEU (0-0.59)
[2020-08-02 07:09] LABS: Alanine Aminotransferase 46 U/L (0-33); Albumin Level 2.5 g/dL (3.5-5.2); Alkaline Phosphatase 58 IU/L (35-105); Anion Gap 12.3 (5-19); Aspartate Amino Transferase 24 U/L (0-32); Blood Urea Nitrogen 61 mg/dL (8-23); Calcium 8.6 mg/dL (8.5-10.5); Carbon Dioxide 24 mmol/L (22-29); Chloride 104 mmol/L (98-107); Globulin 2.7 g/dL (1.3-4.6); Glucose 185 mg/dL (65-115); Magnesium 2.1 mg/dL (1.7-2.3); Osmolality Calculated 304 mOsm/kg (285-295); Potassium 4.3 mmol/L (3.5-5.1); Sodium 136 mmol/L (136-145); Total Bilirubin 0.5 mg/dL (0.15-1.2); Total Protein 5.2 g/dL (6.6-8.7)
[2020-08-02 07:37] LABS: Neutrophils % 83.7 %; Slide Review Slide Review Perform
[2020-08-02] MEDS: albuterol 8 gm MDI 2 PUFF INHALATION ×4 (08:25→21:33)
[2020-08-02] MEDS: guaiFENesin-dextromethorphan UDC 10 mL 5 ML PO ×2 (10:03→18:00)
[2020-08-02] MEDS: FUROsemide 10 mg/mL SDV 4mL 40 MG IVP ×2 (10:03→21:57)
[2020-08-02] MEDS: metoprolol succinate ER (24 HR) 25 mg Tablet 12.5 MG PO (10:04)
[2020-08-02] MEDS: pantoprazole DR 40 mg Tablet PO (10:04)
[2020-08-02] MEDS: aspirin 81 mg EC Tablet PO (10:04)
[2020-08-02] MEDS: ascorbic acid 500 mg Tablet PO (10:04)
[2020-08-02] MEDS: apixaban 5 mg Tablet 2.5 MG PO ×2 (10:05→18:00)
[2020-08-02] MEDS: isosorbide mononitrate ER 30 mg Tablet PO (10:05)
--- NOTE | 2020-08-02 11:00 | P.PN_ITS ---
Subjective Subjective: Interval history: Patient was seen resting in bed.She wants to go home. Vitals and labs have been reviewed. Medications: Reviewed: Yes Vitals/I&O/Wt Last Vital Signs Temp 97.6 F 08/02/20 08:00 Pulse 82 08/02/20 08:00 Resp 18 08/02/20 08:00 BP 129/77 08/02/20 08:00 Pulse Ox 94 08/02/20 08:00 08/01/20 08/02/20 08/02/20 22:59 06:59 14:59 Intake Total 240 / 600 700 / 1300 Output Total 650 / 650 2100 / 2750 Balance -410 / -50 -1400 / -1450 Weight last 48 hrs Weight 84.731 kg Weight 88.405 kg Physical Exam Narrative: EXAM NARRATIVE: Alert and awake Const: COMMON NORMALS: patient oriented x3 HENMT: COMMON NORMALS: normocephalic and atraumatic HEAD & SCALP: normocephalic and atraumatic Eye: COMMON NORMALS: no scleral icterus GENERAL EYE: appearance normal, both eyes and all related structures Chest: COMMONS NORMALS: normal inspection of the chest CHEST: Yes Symmetrical chest wall rise Resp: COMMON NORMALS: clear to auscultation bilaterally EFFORT & INSPECTION: Yes symmetric chest movement AUSCULTATION: clear to auscultation bilaterally OTHER: Diminshed air entry at bases , Cardio: COMMON NORMALS: regular rate, regular rhythm, S1 normal heart sound present, S2 normal heart sound present, No gallops present (Cardio), No murmurs present (Cardio), No rub (Cardio) and Peripheral pulses 2+ throughout RATE: regular rate RHYTHM: regular rhythm HEART SOUNDS: S1 normal heart sound present and S2 normal heart sound present PERIPHERAL PULSES: Peripheral puls es 2+ throughout GI: COMMON NORMALS: Normal to inspection, nondistended, normoactive bowel sounds present, Soft to palpation, non-tender, No hepatosplenomegaly present and no masses AUSCULTATION: Yes normoactive bowel sounds PALPATION: Yes Soft to palpation and Yes No hepatosplenomegaly present RECTAL EXAM: deferred Extremity: COMMON NORMALS: no clubbing, cyanosis or edema and no pedal edema Neuro: COMMON NORMALS: patient oriented x3 Urinary Catheter Management^: Arguelles: Cath Placed During This Visit: yes Reason for Continuing Indwelling Catheter: Accurate Measurement of Urinary Output in Critically Ill Patients Urinary Catheter Date of Insertion: 08/01/20 Urinary Catheter Time of Insertion: 12:30 Data : 08/03/20 05:50 08/02/20 06:35 Micro: Microbiology 07/30/20 14:33 Urine Culture - Final Urine,Clean Catch A&P Assessment and plan (1) Pneumonia due to 2019-nCoV: COVID PROTOCOL Remdesevir 100 mg I.V Daily ( DAY 12/02 ) Decadron 6mg I.V daily Ascorbic acid 500 mg po daily Initially on Eliquis 2.5 mg q12 h daily.Has been stopped due o bleeding risk. Status: Acute (2) Sepsis: Sepsis 2/2 COVID PNA / UTI Blood Cultures : Coagulase negative staph : Staph.Hominis Urine Culture : Citrobacter Farmeri : Sensitive to Cefepime and augmentin. Repeat Urine Culture Ordered on 07/28 :Negative Procal : 0.21 2D Echo : technically limited study with poor ultrasonic windows. LV systolic function is moderate to severely reduced with EF of 30 to 35% with above- mentioned regional wall motion abnormalities. Grade 1 diastolic dysfunction is present. Without Tamponad physiology.( small to medium sized pericardial effusion noted.No echocardiographic features of tamponade are seen) Will continue to monitor for now. Vancomycin ( 07/25-07/26 ) Ceftriaxone (07-24-07/26 ) Cefepime ( 07/26- TD ) Azithromycin ( 07/24-TD ) Continue Cefepime for now. Will Dc her on Po augmentin to complete 10 days course Status: Acute (3) Heart failure: Status: Acute (4) Pericardial effusion: Status: Acute (5) Ischemic cardiomyopathy: Status: Acute Additional A&P Information 1) Sepsis: Sepsis 2/2 COVID PNA / UTI Blood Cultures : Coagulase negative staph : Staph.Hominis Urine Culture : Citrobacter Farmeri : Sensitive to Cefepime and augmentin. 07/30 UCX pending not growth Procal : 0.21 2D Echo : technically limited study with poor ultrasonic windows. LV systolic f unction is moderate to severely reduced with EF of 30 to 35% with above- mentioned regional wall motion abnormalities. Grade 1 diastolic dysfunction is present. Without Tamponad physiology.( small to medium sized pericardial effusion noted.No echocardiographic features of tamponade are seen) Will continue to monitor for now. Vancomycin ( 07/25-07/26 ) Ceftriaxone (07-24-07/26 ) Cefepime ( 07/26- TD ) Azithromycin ( 07/24-TD ) Continue Cefepime for now. Will Dc her on Po augmentin to complete 10 days course Status: Acute (2) Pneumonia due to 2018-nCoV: COVID PROTOCOL Remdesevir 100 mg I.V Daily ( DAY 12/02 ) completed 07/29 Decadron 6mg I.V daily Ascorbic acid 500 mg po daily Initially on Eliquis 2.5 mg q12 h daily.Has been stopped due o bleeding risk. Status: Acute (3) Pericardial effusion: Without Tamponad physiology.( small to medium sized pericardial effusion noted.No echocardiographic features of tamponade are seen) Will continue to monitor Repeat ECHO as outpatient. 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 She had some moderate disease in the other vessels. Based on the angiogram findings it was opted to treat her medically. Continue Aspirin 81 m oral daily Plavix 75 mg oral daily M.Succinate 12.5 mg po daily Nitro SL PRN Status: Acute (5) Acute UTI: Continue Cefepime for now. Will Dc her on Po augmentin to complete 10 days course Status: Acute (6) Heart failure: HFrEF : Decompensation On Lasix 40 mg I.V q12 h daily (7) MINDY ON CKD : Baseline SCR: 1.2-16 : Likely CRS Monitor BMP Attestations Medical Necessity Statement*: Patient needs to be in hospital for the m anagement of R.F 2/ PNA/and Decompensated HF Coding Level of Care Code Acute Corn Breeder for [facility] Fwd Diagnoses Pneumonia due to 2018-nCoV U07.1; J12.89 Sepsis A41.9 Heart failure I50.9 Pericardial effusion I31.3 Ischemic cardiomyopathy I25.5
[2020-08-02] MEDS: dexamethasone 4 mg/mL INJ 6 MG IVP (11:36)
--- NOTE | 2020-08-02 12:53 | PC.SOCIAL ---
*IMM* Update was gave to the patient daughter in law. She stated that she understood.
--- NOTE | 2020-08-02 13:30 | PC.NURSE ---
patient stated that she wanted to go to bed and sleep and that this dancing master could take her vitals in a little while since she had been up all morning. This [employer] Observer Helper will try again in a little while when the patient wakes up.
[2020-08-02] MEDS: azithromycin 500 MG in sodium chloride 0.9% 250 ML 250 MG IV (14:02)
[2020-08-02] MEDS: atorvastatin 40 mg Tablet PO (21:57)
[2020-08-03] VITALS (12 sets, daily range): BP systolic 106–144; BP diastolic 56–89; PULSE 70–84; RESP 16–20; TEMP 36.5–37.1; O2SAT 90–96
[2020-08-03 06:10] LABS: Basophils % 0.1 %; Eosinophils % 0.1 %; Hematocrit 31.1 % (37.0-47.0); Hemoglobin 9.8 g/dL (11.5-15.3); Lymphocytes # 0.4 10^3/uL (0.8-4.8); Lymphocytes % 5.6 %; Mean Corpuscular HGB Conc 31.5 g/dL (30.0-36.0); Mean Corpuscular Hemoglobin 30.9 pg (28.0-34.0); Mean Corpuscular Volume 98.1 fL (81-99); Mean Platelet Volume 12.2 fL (7.4-10.4); Monocytes # 0.5 10^3/uL (0.2-0.9); Monocytes % 6.9 %; Neutrophils # 6.07 10^3/uL (1.8-7.7); Neutrophils % 82.4 %; Nucleated Red Blood Cells % 0 %; Platelet Count 152 10^3/cmm (130-400); Red Blood Count 3.17 10^6/uL (4.1-5.3); Red Cell Distribution Width 15.5 % (12.1-15.1); White Blood Count 7.4 10^3/uL (4.0-10.0)
[2020-08-03 06:32] LABS: D Dimer 1.59 ug/mIFEU (0-0.59)
[2020-08-03 06:36] LABS: Alanine Aminotransferase 38 U/L (0-33); Albumin Level 2.4 g/dL (3.5-5.2); Alkaline Phosphatase 54 IU/L (35-105); Anion Gap 15.1 (5-19); Aspartate Amino Transferase 21 U/L (0-32); Blood Urea Nitrogen 64 mg/dL (8-23); Calcium 8.2 mg/dL (8.5-10.5); Carbon Dioxide 21 mmol/L (22-29); Chloride 105 mmol/L (98-107); Globulin 2.4 g/dL (1.3-4.6); Glucose 227 mg/dL (65-115); Osmolality Calculated 309 mOsm/kg (285-295); Potassium 4.1 mmol/L (3.5-5.1); Sodium 137 mmol/L (136-145); Total Bilirubin 0.4 mg/dL (0.15-1.2); Total Protein 4.8 g/dL (6.6-8.7)
[2020-08-03] MEDS: albuterol 8 gm MDI 2 PUFF INHALATION ×2 (08:12→21:00)
[2020-08-03] MEDS: metoprolol succinate ER (24 HR) 25 mg Tablet 12.5 MG PO (09:28)
[2020-08-03] MEDS: guaiFENesin-dextromethorphan UDC 10 mL 5 ML PO ×2 (09:28→17:45)
[2020-08-03] MEDS: pantoprazole DR 40 mg Tablet PO (09:28)
[2020-08-03] MEDS: aspirin 81 mg EC Tablet PO (09:28)
[2020-08-03] MEDS: ascorbic acid 500 mg Tablet PO (09:28)
[2020-08-03] MEDS: FUROsemide 10 mg/mL SDV 4mL 40 MG IVP (09:29)
[2020-08-03] MEDS: isosorbide mononitrate ER 30 mg Tablet PO (09:29)
[2020-08-03] MEDS: apixaban 5 mg Tablet 2.5 MG PO ×2 (10:07→17:44)
[2020-08-03] MEDS: dexamethasone 4 mg/mL INJ 6 MG IVP (10:09)
--- NOTE | 2020-08-03 11:36 | PC.NURSE ---
Updated patient's daughter Karen. Patient's daughter requesting call from Dr. Dr Marie notified
[2020-08-03] MEDS: azithromycin 500 MG in sodium chloride 0.9% 250 ML 250 MG IV (13:35)
--- NOTE | 2020-08-03 16:43 | P.PN_ITS ---
Subjective Subjective: Interval history: Chart reviewed, on 3.5 L NC, afebrile, had 1500 mL urine output overnight. Stable Hg, improving renal function. Remains on IV lasix for diuresis. Sitting in chair by bedside, seems to be in good spirits, easily redirected and follows simple commands, daughter Karen updated accordingly. Medications: Reviewed: Yes Medication Review Details: Active Medications Generic Name Dose Route Start Last Admin Trade Name Freq PRN Reason Stop Dose Admin Acetaminophen 650 mg 07/24/20 17:55 Acetaminophen 32 5 Mg Tablet PO Q6H PRN Mild/Mod Pain Or Temp >/= 101 Albuterol Sulfate 2 puff 07/24/20 23:20 08/03/20 08:12 Albuterol 8 Gm M di INHALATION 2 puff Q4H.RESPIRATORY P RN Administration SHORTNESS OF [place]IL[place] TH Apixaban 2.5 mg 08/01/20 18:00 08/03/20 10:07 Apixaban 5 Mg Ta blet PO 2.5 mg BID KEVIN Administration Ascorbic Acid 500 mg 07/25/20 09:00 08/03/20 09:28 Ascorbic Acid 50 0 Mg Tablet PO 500 mg DAILY KEVIN Administration Aspirin 81 mg 07/24/20 17:55 08/03/20 09:28 Aspirin 81 Mg Ec Tablet PO 81 mg DAILY KEVIN Administration Atorvastatin Calci um 40 mg 07/24/20 21:00 08/02/20 21:57 Atorvastatin 40 Mg Tablet PO 40 mg BEDTIME KEVIN Administration Bisacodyl 10 mg 07/24/20 17:55 07/30/20 16:39 Bisacodyl 5 Mg T ablet PO 10 mg DAILY PRN Administration CONSTIPATION Dexamethasone 6 mg 07/25/20 11:15 08/03/20 10:09 Dexamethasone 4 Mg/Ml Inj IVP 6 mg Q24H KEVIN Administration Furosemide 40 mg 08/03/20 07:15 08/03/20 09:29 Furosemide 10 Mg /Ml Sdv 4ml IVP 40 mg Q24H KEVIN Administration Guaifenesin/Dextro methorphan 5 ml 07/24/20 18:00 08/03/20 09:28 Guaifenesin-Dext romethorphan Udc 1 0 Ml PO 5 ml BID KEVIN Administration Azithromycin 500 m g/ Sodium 250 mls @ 250 mls /hr 07/25/20 09:00 08/03/20 13:35 Chloride IV 250 mls/hr Q24H KEVIN Administration Protocol Cefepime HCl 500 m g/ Sodium 50 mls @ 100 mls/ hr 07/28/20 20:30 08/02/20 21:58 Chloride IV 100 mls/hr Q24H KEVIN Administration Protocol Isosorbide Mononit rate 30 mg 07/25/20 09:00 08/03/20 09:29 Isosorbide [place] itrate Er 30 Mg Ta blet PO 30 mg DAILY KEVIN Administration Metoprolol Succina te 12.5 mg 07/24/20 17:55 08/03/20 09:28 Metoprolol Succi micaela Er (24 Hr) 25 Mg Tablet PO 12.5 mg DAILY KEVIN Administration Naloxone HCl 0.1 mg 07/24/20 17:55 Naloxone 0.4 Mg/ Ml Sdv IVP Q2M PRN OPIATERV Nitroglycerin 0.4 mg 07/24/20 21:14 Nitroglycerin 0. 4 Mg Sublingual Ta blet SUBLINGUAL Q5M PRN CHEST PAIN Ondansetron HCl 4 mg 07/24/20 17:55 Ondansetron 2 Mg /Ml Sdv 2 Ml IVP Q8H PRN vomiting, or N/V if npo Pantoprazole Sodiu m 40 mg 07/25/20 09:00 08/03/20 09:[address] 40 Mg Tablet PO 40 mg DAILY KEVIN Administration Fluticasone/Salmet pamela 1 puff 07/25/20 08:00 08/03/20 08:12 Fluticasone-Salm eterol 250-50 Disk us INHALATION 1 puff BID.RESPIRATORY S CH Administration Penicillins Allergy (Verified 07/16/20 04:42) ALGY-Anaphylaxis Vitals/I&O/Wt Last Vital Signs Temp 97.9 F 08/03/20 15:26 Pulse 72 08/03/20 16:09 Resp 18 08/03/20 15:26 BP 118/74 08/03/20 15:26 Pulse Ox 96 08/03/20 15:26 08/03/20 08/03/20 08/03/20 06:59 14:59 22:59 Intake Total 600 / 600 Output Total 1500 / 2250 1100 / 1100 Balance -1500 / -1520 600 / 600 -1100 / -500 Weight last 48 hrs Weight 86.273 kg Weight 84.731 kg Physical Exam Const: COMMON NORMALS: no acute distress and alert GENERAL APPEARANCE: cooperative and comfortable ORIENTATION/CONSCIOUSNESS: Yes awake and Yes co nfused (though easily redirected) OTHER: -pleasant, sitting in chair by bedside HENMT: COMMON NORMALS: normocephalic, atraumatic, hearing grossly normal bilaterally and moist oral mucous membranes HEAD & SCALP: normocephalic and atraumatic Eye: COMMON NORMALS: Equal, round and reactive pupils present, EOMs intact b ilaterally and conjunctivae normal CONJUNCTIVA: Yes conjunctivae normal PUPIL: Yes Equal, round and reactive pupils present Neck/C-Spine: COMMON NORMALS: full ROM GENERAL: Yes normal visual ins pection and Yes trachea midline Resp: COMMON NORMALS: normal respiratory effort, No retractions and No use of accessory muscles EFFORT & INSPECTION: Yes able to speak in complete sentences, Yes symmetric chest movement and No tachypneic OTHER: -air entry symmetrical bilaterally, on 3-4 L NC Cardio: COMMON NORMALS: regular rate, regular rhythm, S1 normal heart sound present, S2 normal heart sound present and No murmurs present (Cardio) RATE: regular rate RHYTHM: regular rhythm HEART SOUNDS: S1 normal heart sound present and S2 normal heart sound present GI: COMMON NORMALS: Normal to inspection, nondistended, normoactive bowel sounds present, Soft to palpation and non-tender PALPATION: Yes Soft to palpation : BLADDER/KIDNEY EXAM: Yes catheter in place Catheter type (Female): urethral Extremity: COMMON NORMALS: no clubbing, cyanosis or edema; negative for no pedal edema NARRATIVE EXTREMITY EXAM: -brace on RLE Neuro: COMMON NORMALS: moves all extremities, no focal motor deficits and no sensory deficits noted SENSORIUM/ORIENTATION: Yes alert and Yes Orientation impaired SPEECH: 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) OTHER: - chronic L-sided hemiparesis Psych: COMMON NORMALS: mental status grossly normal, cooperative and normal affect SPEECH: Yes Other speech symptoms (residual expressive aphasia) THOUGHT PROCESS: confused Skin: COMMON NORMALS: no rashes or lesions noted, no jaundice, no petechiae and no mottling GENERAL SKIN EXAM: no rashes or lesions noted Urinary Catheter Management^: Arguelles: Cath Placed During This Visit: yes Reason for Continuing Indwelling Catheter: Accurate Measurement of Urinary Output in Critically Ill Patients Urinary Catheter Date of Insertion: 08/01/20 Urinary Catheter Time of Insertion: 12:30 Data : 08/03/20 05:50 08/03/20 05:50 A&P Assessment and plan (1) Heart failure: -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 -Echo: EF=30-35%, G1DD, akinesis of apical and anteroseptal leiva -on IV lasix -daily weights, monitor Is & Os -monitor lytes and renal function -cardiac diet as tolerated -s/p cath on 06/2020 with noted chronically occluded mid LAD (100%), normal left main; medical management recommended Status: Acute Qualifiers: Heart failure chronicity: acute on chronic Heart failure type: combined systolic and diastolic Qualified Code(s): I50.43 - Acute on chronic combined systolic (congestive) and diastolic (congestive) heart failure (2) Pneumonia due to 2019-nCoV: -diagnosed with COVID-19 on 07/24 -s/p 5 days of remdesevir -on cefepime, azithromycin, dexamethasone, breathing treatments, IS, antitussives PRN -continue to monitor respiratory status -imaging reviewed including CT chest showing bilateral perihilar and lower lobe groundglass infiltrate suspicious for COVID-19 pneumonitis -Resolved leukocytosis, afebrile, stable oxygen requirement -home oxygen evaluation prior to d/c as not previously oxygen dependent -Isolation precautions -blood cx: 2/4 bottles positive for Staph hominis; order repeat set -noted D-dimer elevation; on low dose Eliquis; monitor for bleeding given DAPT Status: Acute (3) CAD (coronary artery disease): -with recent cath as noted above -on ASA, Plavix, statin, BB Status: Chronic Qualifiers: Associated angina: angina presence unspecified Coronary Disease- Associated Artery/Lesion type: [place] artery [place] vs. transplanted heart: [place] heart Qualified Code(s): I25.10 - Atherosclerotic heart disease of [place] coronary artery without angina pectoris (4) Pericardial effusion: -Small to medium sized pericardial effusion noted on echo, no evidence of tamponade Status: Acute (5) Sepsis: -with noted bacteremia -likely secondary to pneumonia Status: Resolved Qualifiers: Sepsis acute organ dysfunction status: without acute organ dysfunction Sepsis type: sepsis due to unspecified organism Qualified Code(s): A41.9 - Sepsis, unspecified organism (6) Elevated troponin: -with known hx of cardiomyopathy, s/p recent cath as noted -telemetry monitoring Status: Acute (7) Acute UTI: -UA indicative of infection -urine cx: Citrobacter farmeri -on Ceftriaxone Status: Acute Additional A&P Information -Morbid obesity: BMI-36 kg/m2 -Advanced age -MINDY on CKD stage unknown; baseline Cr appears to be around 1.5-1.8; continue to monitor renal function with diuresis, avoid nephrotoxins, has Arguelles catheter in place -Hyperglycemia noted, likely due to steroids, no hx of DM, add ISS, accucheks -GI ppx with PPI -DVT ppx not needed as on Eliquis -Dispo: home with HH -Code status: FULL code -daughter Karen updated accordingly Attestations 2 Medical Necessity Statement*: Patient requires hospitalization for continued IV diuresis, IV antibiotics secondary to CHF exacerbation and pneumonia respectively. Time Spent in Patient Care: 16 - 35 minutes (>than 50% of time spent in counselling and/or direct pt care on unit) . Coding Level of Care Code Acute Medical Apparatus Model Maker for g Fwd Exam Comprehensive Diagnoses Heart failure I50.43 Heart failure chronicity: acute on chronic Heart failure type: combined systolic and diastolic Pneumonia due to 2019-nCoV U07.1; J12.89 CAD (coronary artery disease) I25.10 Associated angina: angina presence unspecified Coronary Disease-Associated Artery/Lesion type: [place] artery [place] vs. transplanted heart: [place] heart Pericardial effusion I31.3 Sepsis A41.9 Sepsis acute organ dysfunction status: without acute organ dysfunction Sepsis type: sepsis due to unspecified organism Elevated troponin R77.8 Acute UTI N39.0
[2020-08-03 17:32] LABS: Glucose Point of Care 213 mg/dL (70-110)
[2020-08-03 20:52] LABS: Glucose Point of Care 268 mg/dL (70-110)
[2020-08-03] MEDS: atorvastatin 40 mg Tablet PO (21:49)
[2020-08-04] VITALS (10 sets, daily range): BP systolic 109–127; BP diastolic 61–84; PULSE 61–102; RESP 16–19; TEMP 36.4–36.9; O2SAT 92–99
[2020-08-04] MEDS: FUROsemide 10 mg/mL SDV 4mL 40 MG IVP (06:21)
--- NOTE | 2020-08-04 06:27 | PC.NURSE ---
Summary Patient was yelling all night and kept stating she needed to go to work. She seemed to be confused about her surroundings. She also kept forgetting she had a cox catheter in and insisted she needed to get up to urinate. This nurse and a [employer] SWING DEVELOPER got her up to [facility] to have a BM where she was extremely weak and unsteady and almost fell twice. This nurse has had this patient several nights and she always seems very confused and unaware of surroundings. She also is frequently agitated because she doesn't realize where she is and yells out frequently.
[2020-08-04 06:30] LABS: Glucose Point of Care 116 mg/dL (70-110)
[2020-08-04 06:37] LABS: Basophils % 0.1 %; Eosinophils % 0.1 %; Hematocrit 33.5 % (37.0-47.0); Hemoglobin 10.4 g/dL (11.5-15.3); Lymphocytes # 0.3 10^3/uL (0.8-4.8); Lymphocytes % 3.3 %; Mean Corpuscular Hemoglobin 31.2 pg (28.0-34.0); Mean Corpuscular Volume 100.6 fL (81-99); Mean Platelet Volume 12.3 fL (7.4-10.4); Monocytes # 0.7 10^3/uL (0.2-0.9); Neutrophils # 8.97 10^3/uL (1.8-7.7); Neutrophils % 86.6 %; Nucleated Red Blood Cells % 0 %; Platelet Count 148 10^3/cmm (130-400); Red Blood Count 3.33 10^6/uL (4.1-5.3); Red Cell Distribution Width 15.8 % (12.1-15.1); White Blood Count 10.4 10^3/uL (4.0-10.0)
[2020-08-04 07:00] LABS: D Dimer 1.63 ug/mIFEU (0-0.59)
[2020-08-04 07:14] LABS: Alanine Aminotransferase 37 U/L (0-33); Albumin Level 2.9 g/dL (3.5-5.2); Alkaline Phosphatase 58 IU/L (35-105); Anion Gap 12.1 (5-19); Aspartate Amino Transferase 21 U/L (0-32); Blood Urea Nitrogen 64 mg/dL (8-23); Calcium 8.6 mg/dL (8.5-10.5); Carbon Dioxide 26 mmol/L (22-29); Chloride 105 mmol/L (98-107); Globulin 2.3 g/dL (1.3-4.6); Glucose 109 mg/dL (65-115); Magnesium 2.2 mg/dL (1.7-2.3); Osmolality Calculated 307 mOsm/kg (285-295); Potassium 4.1 mmol/L (3.5-5.1); Sodium 139 mmol/L (136-145); Total Bilirubin 0.6 mg/dL (0.15-1.2); Total Protein 5.2 g/dL (6.6-8.7)
[2020-08-04] MEDS: albuterol 8 gm MDI 2 PUFF INHALATION ×2 (08:41→20:08)
[2020-08-04] MEDS: isosorbide mononitrate ER 30 mg Tablet PO (08:57)
[2020-08-04] MEDS: pantoprazole DR 40 mg Tablet PO (08:57)
[2020-08-04] MEDS: ascorbic acid 500 mg Tablet PO (08:57)
[2020-08-04] MEDS: guaiFENesin-dextromethorphan UDC 10 mL 5 ML PO ×2 (08:57→17:14)
[2020-08-04] MEDS: aspirin 81 mg EC Tablet PO (08:57)
[2020-08-04] MEDS: metoprolol succinate ER (24 HR) 25 mg Tablet 12.5 MG PO (08:57)
[2020-08-04] MEDS: apixaban 5 mg Tablet 2.5 MG PO ×2 (10:06→17:15)
[2020-08-04] MEDS: dexamethasone 4 mg/mL INJ 6 MG IVP (10:06)
[2020-08-04 10:27] LABS: Glucose Point of Care 268 mg/dL (70-110)
[2020-08-04] MEDS: azithromycin 500 MG in sodium chloride 0.9% 250 ML 250 MG IV (11:59)
--- NOTE | 2020-08-04 12:42 | PM.PN ---
Subjective Subjective: Interval history: Patient resting quietly in chair, remains alert though confused, easily redirected. Family prefers to have her return home and would like to take her home tomorrow AM if possible. Medications: Reviewed: Yes Medication Review Details: Active Medications Generic Name Dose Route Start Last Admin Trade Name Freq PRN Reason Stop Dose Admin Acetaminophen 650 mg 07/24/20 17:55 Acetaminophen 32 5 Mg Tablet PO Q6H PRN Mild/Mod Pain Or Temp >/= 101 Albuterol Sulfate 2 puff 07/24/20 23:20 08/04/20 08:41 Albuterol 8 Gm M di INHALATION 2 puff Q4H.RESPIRATORY P RN Administration SHORTNESS OF [place] TH Apixaban 2.5 mg 08/01/20 18:00 08/04/20 10:06 Apixaban 5 Mg Ta blet PO 2.5 mg BID KEVIN Administration Ascorbic Acid 500 mg 07/25/20 09:00 08/04/20 08:57 Ascorbic Acid 50 0 Mg Tablet PO 500 mg DAILY KEVIN Administration Aspirin 81 mg 07/24/20 17:55 08/04/20 08:57 Aspirin 81 Mg Ec Tablet PO 81 mg DAILY KEVIN Administration Atorvastatin Calci um 40 mg 07/24/20 21:00 08/03/20 21:49 Atorvastatin 40 Mg Tablet PO 40 mg BEDTIME KEVIN Administration Bisacodyl 10 mg 07/24/20 17:55 07/30/20 16:39 Bisacodyl 5 Mg T ablet PO 10 mg DAILY PRN Administration CONSTIPATION Dexamethasone 6 mg 07/25/20 11:15 08/04/20 10:06 Dexamethasone 4 Mg/Ml Inj IVP 6 mg Q24H KEVIN Administration Dextrose 25 ml 08/03/20 16:57 Dextrose 50% Syr zonia 50 Ml IVP ONCE PRN hypoglycemia prot ocol Protocol Dextrose 50 ml 08/03/20 16:57 Dextrose 50% Syr zonia 50 Ml IVP PRN PRN hypoglycemia prot ocol Protocol Furosemide 40 mg 08/03/20 07:15 08/04/20 06:21 Furosemide 10 Mg /Ml Sdv 4ml IVP 40 mg Q24H KEVIN Administration Glucagon 1 mg 08/03/20 16:57 Glucagon 1 Mg/Ml Inj 1 Ml IM ONCE PRN Adult Acute Hypog lycemia Prot. Protocol Guaifenesin/Dextro methorphan 5 ml 07/24/20 18:00 01/05/21 08:57 Guaifenesin-Dext romethorphan Udc 1 0 Ml PO 5 ml BID KEVIN Administration Azithromycin 500 m g/ Sodium 250 mls @ 250 mls /hr 07/25/20 09:00 08/04/20 11:59 Chloride IV 250 mls/hr Q24H KEVIN Administration Protocol Dextrose 500 mls @ 100 mls /hr 08/03/20 16:57 D5w IV ONCE PRN Adult Acute Hypog lycemia Prot Protocol Cefepime HCl 500 m g/ Sodium 50 mls @ 100 mls/ hr 08/04/20 21:00 Chloride IV Q24H KEVIN Protocol Insulin Aspart 0 unit 08/03/20 18:00 08/04/20 11:59 Insulin Aspart 1 00 Unit/1 Ml SUBCUT 8 unit WM&BEDTIME KEVIN Administration Protocol Isosorbide Mononit rate 30 mg 07/25/20 09:00 08/04/20 08:57 Isosorbide [place] itrate Er 30 Mg Ta blet PO 30 mg DAILY KEVIN Administration Metoprolol Succina te 12.5 mg 07/24/20 17:55 08/04/20 08:57 Metoprolol Succi micaela Er (24 Hr) 25 Mg Tablet PO 12.5 mg DAILY KEVIN Administration Naloxone HCl 0.1 mg 07/24/20 17:55 Naloxone 0.4 Mg/ Ml Sdv IVP Q2M PRN OPIATERV Nitroglycerin 0.4 mg 07/24/20 21:14 Nitroglycerin 0. 4 Mg Sublingual Ta blet SUBLINGUAL Q5M PRN CHEST PAIN Ondansetron HCl 4 mg 07/24/20 17:55 Ondansetron 2 Mg /Ml Sdv 2 Ml IVP Q8H PRN vomiting, or N/V if npo Pantoprazole Sodiu m 40 mg 07/25/20 09:00 08/04/20 08:[address] 40 Mg Tablet PO 40 mg DAILY KEVIN Administration Fluticasone/Salmet pamela 1 puff 07/25/20 08:00 08/04/20 08:41 Fluticasone-Salm eterol 250-50 Disk us INHALATION 1 puff BID.RESPIRATORY S CH Administration Penicillins Allergy (Verified 07/16/20 04:42) ALGY-Anaphylaxis Vitals/I&O/Wt Last Vital Signs Temp 97.7 F 08/04/20 11:47 Pulse 102 H 08/04/20 11:47 Resp 18 08/04/20 11:47 BP 117/76 08/04/20 11:47 Pulse Ox 99 08/04/20 11:47 08/03/20 08/04/20 08/04/20 22:59 06:59 14:59 Intake Total 240 / 1090 240 / 240 Output Total 1100 / 1100 850 / 1950 1050 / 1050 Balance -860 / -10 -850 / -860 -810 / -810 Weight last 48 hrs Weight 85.049 kg Weight 86.273 kg Physical Exam Const: COMMON NORMALS: no acute distress and alert GENERAL APPEARANCE: cooperative and comfortable ORIENTATION/CONSCIOUSNESS: Yes awake and Yes confused (though easily redirected) OTHER: -pleasant, sitting in chair by bedside HENMT: COMMON NORMALS: normocephalic, atraumatic, hearing grossly normal bilaterally and moist oral mucous membranes HEAD & SCALP: normocephalic and atraumatic Eye: COMMON NORMALS: Equal, round and reactive pupils present, EOMs intact bilaterally and conjunctivae normal CONJUNCTIVA: Yes conjunctivae normal PUPIL: Yes Equal, round and reactive pupils present Neck/C-Spine: COMMON NORMALS: full ROM GENERAL: Yes normal visual inspection and Yes trachea midline Resp: COMMON NORMALS: normal respiratory effort, No retractions and No use of accessory muscles EFFORT & INSPECTION: Yes able to speak in complete sentences, Yes symmetric chest movement and No tachypneic OTHER: -air entry symmetrical bilaterally, on 3-4 L NC Cardio: COMMON NORMALS: regular rate, regular rhythm, S1 normal heart sound present, S2 normal heart sound present and No murmurs present (Cardio) RATE: regular rate RHYTHM: regular rhythm HEART SOUNDS: S1 normal heart sound present and S2 normal heart sound present GI: COMMON NORMALS: Normal to inspection, nondistended, normoactive bowel sounds present, Soft to palpation and non-tender PALPATION: Yes Soft to palpation : BLADDER/KIDNEY EXAM: Yes catheter in place Catheter type (Female): urethral Extremity: COMMON NORMALS: no clubbing, cyanosis or edema; negative for no pedal edema NARRATIVE EXTREMITY EXAM: -brace on RLE Neuro: COMMON NORMALS: moves all extremities, no focal motor deficits and no sensory deficits noted SENSORIUM/ORIENTATION: Yes alert and Yes Orientation impaired SPEECH: 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) OTHER: -chronic L-sided hemiparesis Psych: COMMON NORMALS: mental status grossly normal, cooperative and normal affect SPEECH: Yes Other speech symptoms (residual expressive aphasia) THOUGHT PROCESS: confused Skin: COMMON NORMALS: no rashes or lesions noted, no jaundice, no petechiae and no mottling GENERAL SKIN EXAM: no rashes or lesions noted Urinary Catheter Management^: Arguelles: Cath Placed During This Visit: yes Reason for Continuing Indwelling Catheter: Accurate Measurement of Urinary Output in Critically Ill Patients Urinary Catheter Date of Insertion: 08/01/20 Urinary Catheter Time of Insertion: 12:30 Data : 08/04/20 06:08 08/04/20 06:08 Micro: Microbiology 08/04/20 06:12 Blood Culture - Preliminary Blood SPECIMEN COLLECTED 08/04/20 06:08 Blood Culture - Preliminary Blood SPECIMEN COLLECTED A&P Assessment and plan (1) Heart failure: -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 -Echo: EF=30-35%, G1DD, akinesis of apical and anteroseptal leiva -on IV lasix; will switch to oral lasix as clinically compensated -daily weights, monitor Is & Os -continue to monitor lytes and renal function -cardiac diet as tolerated -s/p cath on 06/2020 with noted chronically occluded mid LAD (100%), normal left main; medical management recommended Status: Acute Qualifiers: Heart failure chronicity: acute on chronic Heart failure type: combined systolic and diastolic Qualified Code(s): I50.43 - Acute on chronic combined systolic (congestive) and diastolic (congestive) heart failure (2) Pneumonia due to 2019-nCoV: -diagnosed with COVID-19 on 07/24 -s/p 5 days of remdesevir -on cefepime, azithromycin, dexamethasone, breathing treatments, IS, antitussives PRN. Switch to PO azithromycin, d/c steroids -continue to monitor respiratory status -imaging reviewed including CT chest showing bilateral perihilar and lower lobe groundglass infiltrate suspicious for COVID-19 pneumonitis -Resolved leukocytosis, afebrile, stable oxygen requirement -home oxygen evaluation prior to d/c as not previously oxygen dependent -Isolation precautions -blood cx: 2/4 bottles positive for Staph hominis; order repeat set -noted D-dimer elevation; on low dose Eliquis; monitor for bleeding given DAPT Status: Acute (3) CAD (coronary artery disease): -with recent cath as noted above -on ASA, Plavix, statin, BB Status: Chronic Qualifiers: Associated angina: angina presence unspecified Coronary Disease-Associated Artery/Lesion type: [place] artery [place] vs. transplanted heart: [place] heart Qualified Code(s): I25.10 - Atherosclerotic heart disease of [place] coronary artery without angina pectoris (4) Pericardial effusion: -Small to medium sized pericardial effusion noted on echo, no evidence of tamponade Status: Acute (5) Sepsis: -with noted bacteremia -likely secondary to pneumonia Status: Resolved Qualifiers: Sepsis acute organ dysfunction status: without acute organ dysfunction Sepsis type: sepsis due to unspecified organism Qualified Code(s): A41.9 - Sepsis, unspecified organism (6) Elevated troponin: -with known hx of cardiomyopathy, s/p recent cath as noted -telemetry monitoring Status: Acute (7) Acute UTI: -UA indicative of infection -urine cx: Citrobacter farmeri -on Ceftriaxone Status: Acute Additional A&P Information -Morbid obesity: BMI-36 kg/m2 -Advanced age -MINDY on CKD stage unknown; baseline Cr appears to be around 1.5-1.8; continue to monitor renal function with diuresis, avoid nephrotoxins, d/c Arguelles catheter. Renal function at baseline -Hyperglycemia noted, likely due to steroids, no hx of DM, ISS, accucheks -GI ppx with PPI -DVT ppx not needed as on Eliquis -Dispo: home with HH -Code status: FULL code -anticipate d/c tomorrow if continued stability Attestations Medical Necessity Statement*: Patient requires hospitalization for continued antibiotic treatment, monitoring of respiratory status. Time Spent in Patient Care: 16 - 35 minutes (>than 50% of time spent in counselling and/or direct pt care on unit). Coding Level of Care Code Acute Trade Specialist for [facility] Fwd Exam Comprehensive Diagnoses Heart failure I50.43 Heart failure chronicity: acute on chronic Heart failure type: combined systolic and diastolic Pneumonia due to 2019-nCoV U07.1; J12.89 CAD (coronary artery disease) I25.10 Associated angina: angina presence unspecified Coronary Disease-Associated Artery/Lesion type: [place] artery [place] vs. transplanted heart: [place] heart Pericardial effusion I31.3 Sepsis A41.9 Sepsis acute organ dysfunction status: without acute organ dysfunction Sepsis type: sepsis due to unspecified organism Elevated troponin R77.8 Acute UTI N39.0
[2020-08-04 17:03] LABS: Glucose Point of Care 168 mg/dL (70-110)
[2020-08-04 20:49] LABS: Glucose Point of Care 298 mg/dL (70-110)
[2020-08-04] MEDS: atorvastatin 40 mg Tablet PO (22:00)
[2020-08-05] VITALS (7 sets, daily range): BP systolic 97–136; BP diastolic 63–76; PULSE 58–93; RESP 17–18; TEMP 36.4–36.7; O2SAT 82–98
[2020-08-05 06:40] LABS: Glucose Point of Care 96 mg/dL (70-110)
--- NOTE | 2020-08-05 08:37 | P.DS_ITS ---
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 -Echo: EF=30-35%, G1DD, akinesis of apical and anteroseptal leiva -on lasix; clinically compensated -daily weights, monitor Is & Os -continue to monitor lytes and renal function -cardiac diet as tolerated -s/p cath on 06/2020 with noted chronically occluded mid LAD (100%), normal left main; medical management recommended Qualifiers: Heart failure chronicity: acute on chronic Heart failure type: combined systolic and diastolic Qualified Code(s): I50.43 - Acute on chronic combined systolic (congestive) and diastolic (congestive) heart failure (2) Pneumonia due to 2019-nCoV: Status: Acute Permanent problem details: -diagnosed with COVID-19 on 07/24 -s/p 5 days of remdesevir -on cefepime, azithromycin, dexamethasone, breathing treatments, IS, antitussives PRN. Switch to PO azithromycin, d/c steroids -continue to monitor respiratory status -imaging reviewed including CT chest showing bilateral perihilar and lower lobe groundglass infiltrate suspicious for COVID-19 pneumonitis -Resolved leukocytosis, afebrile, stable oxygen requirement -home oxygen evaluation prior to d/c as not previously oxygen dependent; qualifies for 3 L NC -Isolation precautions -blood cx: 2/4 bottles positive for Staph hominis; repeat set prelim negative -noted D-dimer elevation; on low dose Eliquis; monitor for bleeding given DAPT (3) CAD (coronary artery disease): Status: Chronic Permanent problem details: -with recent cath as noted above -on ASA, Plavix, statin, BB Qualifiers: Associated angina: angina presence unspecified Coronary Disease- Associated Artery/Lesion type: [place] artery [place] vs. transplanted heart: [place] heart Qualified Code(s): I25.10 - Atherosclerotic heart disease of [place] coronary artery without angina pectoris (4) Pericardial effusion: Status: Acute Permanent problem details: -Small to medium sized pericardial effusion noted on echo, no evidence of tamponade (5) Sepsis: Status: Resolved Permanent problem details: -with noted bacteremia -likely secondary to pneumonia Qualifiers: Sepsis acute organ dysfunction status: without acute organ dysfunction Sepsis type: sepsis due to unspecified organism Qualified Code(s): A41.9 - Sepsis, unspecified organism (6) Elevated troponin: Status: Acute Permanent problem details: -with known hx of cardiomyopathy, s/p recent cath as noted -telemetry monitoring (7) Acute UTI: Status: Acute Permanent problem details: -UA indicative of infection -urine cx: Citrobacter farmeri -on Ceftriaxone Other Information Additional DC diagnoses/information: -Morbid obesity: BMI-36 kg/m2 -Advanced age -MINDY on CKD stage unknown; baseline Cr appears to be around 1.5-1.8; continue to monitor renal function with diuresis, avoid nephrotoxins, d/c Arguelles catheter. Renal function at baseline -Hyperglycemia noted, likely due to steroids, no hx of DM, ISS, accucheks Reason for Visit Reason for Visit: CHEST PAIN AND FEVER Hospital Course Hospital Course Patient was admitted to the COVID unit on the medical surgical floor after having been readmitted to the hospital with complaints of chest pain, shortness of breath, fever and generalized weakness. She was found to have COVID-19 pneumonia as well as a UTI. She was started on broad-spectrum IV antibiotics, remdesivir of which she has completed a 5-day course and required supplemental oxygen. She had recently had a coronary angiogram done in June with noted chronic occlusion of the LAD, medical management was recommended at that time by cardiology so no further work-up done during this admission. She did develop acute CHF exacerbation during her hospital stay, managed with IV diuresis, currently euvolemic and has been transitioned to oral diuretics as echo shows evidence of ejection fraction of 30 to 35% with grade 1 diastolic dysfunction. Urine culture grew Citrobacter farmeri and she was noted to be bacteremic with 2 out of 4 bottles from initial set of blood cultures growing Staph hominis. Repeat set of blood cultures has been negative so far. Respiratory status is stabilized with a consistent oxygen requirement of 3-4 L. She was previously not oxygen dependent so home oxygen evaluation done prior to discharge. She was covered with Eliquis due to noted elevated D-dimer and associated increased risk of thrombotic event with + COVID-19 infection. He did have some noted renal impairment but current renal function is at her baseline. She has completed a 13-day course of broad-spectrum IV antibiotics I will not discharge her on further antibiotic treatment at this time. She will need appropriate follow-up with her primary care physician. Family has opted to have her return home as they are able to provide 24/7 supervision and she is to continue to receive therapy at home through home health services. She is already on dual antiplatelet therapy and due to increased risk of bleeding, I will not prescribe further Eliquis at this time. Should the patient develop recurrent or worsening symptoms she is to seek medical attention immediately. Physical Exam Const: COMMON NORMALS: no acute distress and alert GENERAL APPEARANCE: cooperative and comfortable ORIENTATION/CONSCIOUSNESS: Yes awake and Yes confused (though easily redirected) OTHER: -pleasant, sitting in chair by bedside HENMT: COMMON NORMALS: normocephalic, atraumatic, hearing grossly normal bilaterally and moist oral mucous membranes HEAD & SCALP: normocephalic and atraumatic Eye: COMMON NORMALS: Equal, round and reactive pupils present, EOMs intact bilaterally and conjunctivae normal CONJUNCTIVA: Yes conjunctivae normal PUPIL: Yes Equal, round and reactive pupils present Neck/C-Spine: COMMON NORMALS: full ROM GENERAL: Yes normal visual i nspection and Yes trachea midline Resp: COMMON NORMALS: normal respiratory effort, No retractions and No use of accessory muscles EFFORT & INSPECTION: Yes able to speak in complete sentences, Yes symmetric chest movement and No tachypneic OTHER: -air entry symmetrical bilaterally, on 3 L NC Cardio: COMMON NORMALS: regular rate, regular rhythm, S1 normal heart sound present, S2 normal heart sound present and No murmurs present (Cardio) RATE: regular rate RHYTHM: regular rhythm HEART SOUNDS: S1 normal heart sound present and S2 normal heart sound present GI: COMMON NORMALS: Normal to inspection, nondistended, normoactive bowel sounds present, Soft to palpation and non-tender PALPATION: Yes Soft to palpation : BLADDER/KIDNEY EXAM: Yes catheter in place Catheter type (Female): urethral Extremity: COMMON NORMALS: no clubbing, cyanosis or edema; negative for no pedal edema NARRATIVE EXTREMITY EXAM: -brace on RLE Neuro: COMMON NORMALS: moves all extremities, no focal motor deficits and no sensory deficits noted SENSORIUM/ORIENTATION: Yes alert and Yes Orientation impaired SPEECH: 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) OTHER: - chronic L-sided hemiparesis Psych: COMMON NORMALS: mental status grossly normal, cooperative and normal affect SPEECH: Yes Other speech symptoms (residual expressive aphasia) THOUGHT PROCESS: confused Skin: COMMON NORMALS: no rashes or lesions noted, no jaundice, no petechiae and no mottling GENERAL SKIN EXAM: no rashes or lesions noted Urinary Catheter Management^: Arguelles: Cath Placed During This Visit: yes, but has since been removed by the nurse Reason for Continuing Indwelling Catheter: Decision to DC Catheter Urinary Catheter Date of Insertion: 08/01/20 Urinary Catheter Time of Insertion: 12:30 Date Urinary Catheter Removed: 08/04/20 Time Urinary Catheter Discontinued: 15:38 Discharge Data Data Completed and Pending: Completed Studies During Hospitalization Category Date Time Status CT chest wo con 7 1250 Routine Cat Scan 07/30/20 07:[address] chest wo con 7 1250 Urgent Cat Scan 07/24/20 08:51 Completed XR chest 1V dali ble [id number] Routine Exams 07/28/20 12:17 Completed XR chest 1V dali ble [id number] Urgent Exams 07/24/20 05:14 Completed CV echo complete* 12508 Routine Ultrasound 07/24/20 11:22 Completed Pending at discharge Category Date Time Status Blood Culture Sta t Lab 08/03/20 16:52 Results Labs from last 24 hours 08/05/20 08/04/20 08/04/20 06:25 20:44 16:59 POC Glucose 96 298 H 168 H 08/04/20 10:23 POC Glucose 268 H Vitals: Last Vital Signs Temp 97.7 F 08/05/20 08:00 Pulse 62 08/05/20 08:00 Resp 17 08/05/20 08:00 BP 136/75 08/05/20 08:00 Pulse Ox 98 08/05/20 08:00 Discharge Plan Discharge Patient Disposition: Home Health Service Condition: Stable Prescriptions: New furosemide 40 mg Tablet 40 mg PO DAILY@0800 Qty: 30 RF: 0 isosorbide mononitrate 30 mg Tablet Extended Release 24 Hr 30 mg PO DAILY Qty: 30 RF: 0 pantoprazole 40 mg Tablet,Delayed Release (Dr/Ec) 40 mg PO DAILY Qty: 30 RF: 0 potassium chloride 20 mEq tablet extended release 20 meq PO DAILY 30 Days Qty: 30 RF: 0 Continued ascorbic acid (vitamin C) 1,000 mg Tablet 500 mg PO DAILY RF: 0 cyanocobalamin (vitamin B-12) 100 mcg Tablet 100 mcg PO DAILY RF: 0 acetaminophen 500 mg Tablet 500 mg PO Q6H PRN (Reason: Mild Pain (Scale Score 1-4)) RF: 0 fluticasone propionate 50 mcg/actuation [place],Suspension 2 spray INTRANASAL DAILY RF: 0 cholecalciferol (vitamin D3) 1,250 mcg (50,000 unit) Tablet See Rx Instructions .ROUTE .COMPLEX RF: 0 clopidogrel 75 mg Tablet 75 mg PO DAILY 30 Days Qty: 30 RF: 0 aspirin 81 mg Tablet,Delayed Release (Dr/Ec) 81 mg PO DAILY 30 Days Qty: 30 RF: 0 metoprolol succinate 25 mg tablet extended release 24 hr 12.5 mg PO DAILY 30 Days Qty: 30 RF: 0 Changed atorvastatin 40 mg Tablet 40 mg PO BEDTIME 30 Days Qty: 30 RF: 0 Discharge Orders: Discharge Order (Routine); Ordered 08/05/20 Ordered By: Deonna Marie Other Ambulatory Orders: DME: Oxygen (Order) Location: None Selected Ordered By: Deonna Marie Referrals: Isaura Lozano MD [Referring] - 08/10/20 2:40 pm Discharge Diet: Advance as tolerated and Cardiac Discharge Activity: As per PT/OT instructions and Oxygen as instructed Patient Instructions: Furosemide (By mouth), Potassium Chloride (By mouth), Isosorbide Mononitrate (By mouth), Pantoprazole (By mouth), Pneumonia Stoplight, Pneumonia - Viral, Using Oxygen at Home Activity Restrictions/Additional Instructions: -Please note that you will now need supplemental oxygen. Please be sure to keep this away from open flames as oxygen is combustible Discharge Attestations Time Spent in Discharge Care*: greater than 30 min Specific Discharge Activities: educating and/or supporting family/caregiver, discussing with case packer/social workers/dc planners, documenting/other paperwork and evaluating patient/reviewing data Status at Discharge: Cognitive status at discharge: mildly impaired cognition , Behavioral status at discharge: cooperative and dependent in ADL's , Functional status at discharge: uses cane/walker Overall status at discharge: patient is progressing back to baseline Quality Metrics Clinical Quality Measures During this hospital stay, did patient experience: None Coding Level of Care Code Acute [employer]ured Build[employer]r for Melissa Fwd Exam Comprehensive Diagnoses Heart failure I50.43 Heart failure chronicity: acute on chronic Heart failure type: combined systolic and diastolic Pneumonia due to 2019-nCoV U07.1; J12.89 CAD (coronary artery disease) I25.10 Associated angina: angina presence unspecified Coronary Disease-Associated Artery/Lesion type: [place] artery [place] vs. transplanted heart: [place] heart Pericardial effusion I31.3 Sepsis A41.9 Sepsis acute organ dysfunction status: without acute organ dysfunction Sepsis type: sepsis due to unspecified organism Elevated troponin R77.8 Acute UTI N39.0
[2020-08-05] MEDS: azithromycin 250 mg Tablet 500 MG PO (08:38)
[2020-08-05] MEDS: pantoprazole DR 40 mg Tablet PO (08:38)
[2020-08-05] MEDS: metoprolol succinate ER (24 HR) 25 mg Tablet 12.5 MG PO (08:38)
[2020-08-05] MEDS: ascorbic acid 500 mg Tablet PO (08:38)
[2020-08-05] MEDS: aspirin 81 mg EC Tablet PO (08:39)
[2020-08-05] MEDS: FUROsemide 40 mg Tablet PO (08:39)
[2020-08-05] MEDS: guaiFENesin-dextromethorphan UDC 10 mL 5 ML PO (08:39)
[2020-08-05] MEDS: apixaban 5 mg Tablet 2.5 MG PO (08:39)
[2020-08-05] MEDS: isosorbide mononitrate ER 30 mg Tablet PO (08:40)
--- NOTE | 2020-08-05 09:58 | PC.NURSE ---
notified Dr Marie that patient qualifies for 3l oxygen per Shayy, RT
--- NOTE | 2020-08-05 10:16 | PC.NURSE ---
notified Khushi PUENTE that patient qualifies for 3L NC
[2020-08-05 11:12] LABS: Glucose Point of Care 161 mg/dL (70-110)
--- NOTE | 2020-08-05 13:02 | PC.NURSE ---
Patient's meds delivered to room from pharmacy, home meds pulled from pyxis and put in patient's home bag, patient's home oxygen delivered to patient. patient assisted with getting dressed by , iv removed. waiting on patient's family to arrived. song writer called family as soon as the home o2 was delivered and spoke with vasquez. she said it would take her about 30-45 mins.
--- NOTE | 2020-08-05 14:03 | PC.NURSE ---
patient taken to private vehicle. discharge instructions given to and verbalized understanding of instructions.
== END 2020-08-05 14:06 | disposition home health service (06) | DRG 871 ==
LOC: ER 11:30 → MEDSURG 13:36
PROVIDERS: Emergency Medicine; Internal Medicine; Admitting Provider Internal Medicine; Emergency Provider Family Medicine; Visit Provider Family Medicine
DX: A41.9 Sepsis, unspecified organism (principal); U07.1 COVID-19; J12.89 Other viral pneumonia; I50.43 Acute on chronic combined systolic (congestive) and diastolic (congestive) heart failure; I69.954 Hemiplegia and hemiparesis following unspecified cerebrovascular disease affecting left non-dominant side; I13.0 Hypertensive heart and chronic kidney disease with heart failure and stage 1 through stage 4 chronic kidney disease, or unspecified chronic kidney disease; N39.0 Urinary tract infection, site not specified; I31.3 Pericardial effusion (noninflammatory); N17.9 Acute kidney failure, unspecified; I69.920 Aphasia following unspecified cerebrovascular disease; N18.9 Chronic kidney disease, unspecified; M19.90 Unspecified osteoarthritis, unspecified site; I73.9 Peripheral vascular disease, unspecified; Z87.440 Personal history of urinary (tract) infections; I25.5 Ischemic cardiomyopathy; I25.10 Atherosclerotic heart disease of native coronary artery without angina pectoris; E66.01 Morbid (severe) obesity due to excess calories; Z68.36 Body mass index [BMI] 36.0-36.9, adult; R73.9 Hyperglycemia, unspecified; T38.0X5A Adverse effect of glucocorticoids and synthetic analogues, initial encounter; B96.89 Other specified bacterial agents as the cause of diseases classified elsewhere; Z79.82 Long term (current) use of aspirin; Z79.02 Long term (current) use of antithrombotics/antiplatelets
CPT/HCPCS: 12345; 36415; 36416; 36600; 51702; 71045; 71250; 80048; 80051; 80053; 81001; 82330; 82805; 82962; 83520; 83605; 83735; 83880; 84145; 84484; 85025; 85378; 85610; 85651; 85730; 86140; 87040; 87077; 87086; 87186; 87205; 87426; 87804; 93005; 93306; 94640; 96372; 97110; 97116; 97161; 97530; 99283; J0456; J0692; J0696; J1100; J1650; J1815; J1940; J3370; J3535; J7030; J7050; Q0144

== ENCOUNTER 2020-09-24 18:42 | Outpatient (CLI) | payer MEDICARE, OTHER, SELFPAY ==
[2020-09-24 20:09] LABS: Basophils % 0.7 %; Eosinophils # 0.5 10^3/uL (0.0-0.8); Eosinophils % 8.7 %; Hematocrit 37.2 % (37.0-47.0); Hemoglobin 11.1 g/dL (11.5-15.3); Lymphocytes % 17.6 %; Mean Corpuscular HGB Conc 29.8 g/dL (30.0-36.0); Mean Corpuscular Hemoglobin 30.8 pg (28.0-34.0); Mean Corpuscular Volume 103.3 fL (81-99); Mean Platelet Volume 12.6 fL (7.4-10.4); Monocytes # 0.6 10^3/uL (0.2-0.9); Monocytes % 9.8 %; Neutrophils % 62.9 %; Nucleated Red Blood Cells % 0 %; Platelet Count 170 10^3/cmm (130-400); Red Cell Distribution Width 16.1 % (12.1-15.1); White Blood Count 5.7 10^3/uL (4.0-10.0)
[2020-09-24 20:10] LABS: Alanine Aminotransferase 7 U/L (0-33); Albumin Level 3.2 g/dL (3.5-5.2); Alkaline Phosphatase 53 IU/L (35-105); Anion Gap 14.9 (5-19); Aspartate Amino Transferase 18 U/L (0-32); Blood Urea Nitrogen 32 mg/dL (8-23); Calcium 9.8 mg/dL (8.5-10.5); Carbon Dioxide 25 mmol/L (22-29); Chloride 99 mmol/L (98-107); Globulin 3.9 g/dL (1.3-4.6); Glucose 54 mg/dL (65-115); Osmolality Calculated 282 mOsm/kg (285-295); Potassium 4.9 mmol/L (3.5-5.1); Sodium 134 mmol/L (136-145); Total Bilirubin 0.3 mg/dL (0.15-1.2); Total Protein 7.1 g/dL (6.6-8.7)
[2020-09-24 20:39] LABS: Add RBC Morph Yes; RBC Morph Comp No; Slide Review Slide Review Perform
[2020-09-24 20:40] LABS: Poikilocytosis Trace; Polychromasia Trace; Schistocytes Trace
[2020-09-24 20:52] LABS: Lactate Dehydrogenase 349 U/L (135-214)
== END 2020-09-24 18:43 | disposition home or self-care (01) ==
LOC: LAB 19:13
PROVIDERS: Visit Provider Family Medicine
DX: I69.359 Hemiplegia and hemiparesis following cerebral infarction affecting unspecified side (principal)
CPT/HCPCS: 80053; 83010; 83615; 85025; 85045